=== PATIENT | male | born 1960 | race Two or more races ===

== ENCOUNTER 2024-07-20 19:26 | Inpatient (IN) | payer MEDICAID ==
[~2024-07-20] VITALS: Ht 167.6 cm; Wt 59.6 kg
[~2024-07-20 19:26] MED LIST: CARV12.544 PO; DOXY100C4 PO; FIN5T PO; FOLI-119 PO; FURO40TA4 PO; NIFE90TA75 PO; SODI650T PO; TAMS0.4C39 PO
--- NOTE | 2024-07-20 19:39 | ED.PDOC ---
History of Present Illness HPI Comments 63-year-old male who comes in with chief complaint of abdominal pain. The patient states that the pain starts in the right abdominal area and radiates to the right flank. The patient states that the pain is an 8/10. The patient has been dealing with this pain for the past four years and states that he has been told that he has had kidney stones but unfortunately they have not taking care of the stones. The patient denies any vomiting but is having some nausea. 911 was called and the patient was transported to our facility. The patient is also stating that he was seen a little over one week ago at [facility] for CHF. Time Seen by MD: 19:30 Reviewed Notes: Nurses Notes, Heel Shaper Notes, Medications, Allergies (No allergies to medications) Information Source: Patient, Emergency Med Personnel Mode of Arrival: EMS Severity: Moderate Timing: Days Duration: Since onset Prehospital treatment: None Location: Right-sided abdominal pain that radiates around to the right flank Associated signs and symptoms Associated nausea but no vomiting Past Medical History PAST MEDICAL HISTORY: CHF, CVA, HTN, Kidney Stones Surgical History: Cholecystectomy Surgical History (Other): Indwelling Stuart catheter Family History Family History: Family hx of DM Social History Smoker: Cigarettes Alcohol: Occasionally Drugs: Marijuana Lives In: Home Constitutional: denies: chills, diaphoresis, fatigue, fever, malaise, sweats, weakness, others EENTM: denies: blurred vision, double vision, ear bleeding, ear discharge, ear drainage, ear pain, ear ringing, eye pain, eye redness, hearing loss, mouth pain, mouth swelling, nasal discharge, nose bleeding, nose congestion, nose pain, photophobia, tearing, throat pain, throat swelling, voice changes, others Respiratory: denies: cough, hemoptysis, orthopnea, SOB at rest, shortness of breath, SOB with excertion, stridor, wheezing, others Cardiovascular: denies: chest pain, dizzy spells, diaphoresis, Dyspnea on exertion, edema, irregular heart beat, left arm pain, lightheadedness, palpitations, PND, syncope, others Gastrointestinal: reports: abdominal pain, nausea; denies: abdomen distended, blood streaked bowels, constipated, diarrhea, dysphagia, difficulty swallowing, hematemesis, melena, poor appetite, poor fluid intake, rectal bleeding, rectal pain, vomiting, others Genitourinary: reports: flank pain (Right-sided flank pain); denies: burning, dysuria, frequency, hematuria, incontinence, penile discharge, penile sore, pain, testicle pain, testicle swelling, urgency, others Neurological: denies: dizziness, fainting, headache, left sided numbness, left sided weakness, numbness, paresthesia, pre-existing deficit, right sided numbness, right sided weakness, seizure, speech problems, tingling, tremors, weakness, others Musculoskeletal: denies: back pain, gout, joint pain, joint swelling, muscle pain, muscle stiffness, neck pain, others Integumetry: denies: bruises, change in color, change in hair/nails, dryness, laceration, lesions, lumps, rash, wounds, others Allergic/Immunocompromised: denies: Difficulty Healing, Frequent Infections, Hives, Itching, others Hematologic/Lymphatic: denies: anemia, blood clots, easy bleeding, easy bruising, swollen glands, others Endocrine: denies: excessive hunger, excessive sweating, excessive thirst, excessive urination, flushing, intolerance to cold, intolerance to heat, unexplained weight gain, unexplained weight loss, others Psychiatric: denies: anxiety, bipolar disorder, depression, hopeless, panic disorder, schizophrenia, sleepless, suicidal, others Physical Exam General Appearance: Moderate Distress HEENT: Normal ENT Inspection, Pharynx Normal, TMs Normal Neck: Full Range of Motion, Non-Tender, Normal, Normal Inspection Respiratory: Chest Non-Tender, Lungs Clear, No Accessory Muscle Use, No Respiratory Distress, Normal Breath Sounds Cardiovascular: No Edema, No JVD, No Murmur, No Gallop, Normal Peripheral Pulses, Regular Rate/Rhythm Breast Exam: Deferred Gastrointestinal: No Organomegaly, No Pulsatile Mass, Normal Bowel Sounds, RUQ, Soft, Tenderness Genitalia: Deferred Pelvic: Deferred Rectal: Deferred Extremities: No calf tenderness, Normal capillary refill, Normal inspection, Normal range of motion, Non-tender, No pedal edema Musculoskeletal : Apperance: Normal Neurologic: Alert, set up mold technician II-XII nml as Tested, No Motor Deficits, Normal Affect, Normal Mood, No Sensory Deficits Cerebellar Function: Normal Reflexes: Normal Skin: Dry, Normal Color, Warm Lymphatic: No Adenopathy Was a procedure done? Was a procedure done?: No EKG EKG : Pulse Rate (adult): 91 [place]: Normal Cardiac Rhythm: NSR Block: RBBB Hypertrophy: LAE Differential Dx Considerations may include: Kidney stones, bowel obstruction, generalized weakness, UTI X-Ray, Labs, Meds, VS Vital Signs Date Time Temp Pulse Resp B/P (MAP) Pulse Ox O2 Delivery O2 Flow Rate FiO2 07/20/24 19:39 91 07/20/24 19:36 98.0 86 16 165/101 (122) 100 98.0 07/20/24 19:32 91 Lab Test 07/20/24 19:40 Range/Units White Blood Count 5.6 4.4-10.8 10^3/uL Red Blood Count 4.41 L 4.5-5.90 10^6/uL Hemoglobin 10.4 L 13.5-17.5 g/dL Hematocrit 32.8 L 41.0-53.0 % Mean Corpuscular Volume 74.4 L 80.0-100.0 fL Mean Corpuscular Hemoglobin 23.5 L 28.0-32.0 pg Mean Corpuscular Hemoglobin Concent 31.5 L 32.0-36.0 g/dL Red Cell Distribution Width 24.9 H 11.8-14.3 % Platelet Count 326 140-450 10^3/uL Mean Platelet Volume 6.3 L 6.9-10.8 fL Neutrophils (%) (Auto) 67.9 37.0-80.0 % Lymphocytes (%) (Auto) 17.8 10.0-50.0 % Monocytes (%) (Auto) 9.7 0.0-12.0 % Eosinophils (%) (Auto) 3.7 0.0-7.0 % Basophils (%) (Auto) 0.9 0.0-2.0 % Neutrophils # (Auto) 3.8 1.6-8.6 10 ^3/uL Lymphocytes # (Auto) 1.0 0.4-5.4 10 ^3/uL Monocytes # (Auto) 0.5 0-1.3 10 ^3/uL Eosinophils # (Auto) 0.2 0-0.8 10 ^3/uL Basophils # (Auto) 0 0-0.2 10 ^3/uL Nucleated Red Blood Cells 0.1 % Sodium Level 140 136-145 mmol/L Potassium Level 5.2 H 3.5-5.1 mmol/L Chloride Level 114 H 98-107 mmol/L Carbon Dioxide Level 17 L 20-31 mmol/L Anion Gap 9 5-15 Blood Urea Nitrogen 39 H 9-23 mg/dL Creatinine 2.91 H 0.700-1.30 mg/dL Glomerular Filtration Rate Calc 23 >90 mL/min BUN/Creatinine Ratio 13.4 10.0-20.0 Serum Glucose 92 74-106 mg/dL Calcium Level 9.0 8.7-10.4 mg/dL Total Bilirubin 0.2 0.2-1.0 mg/dL Aspartate Amino Transferase (AST) 29 0-34 U/L Alanine Aminotransferase (ALT) 27 7-40 U/L Alkaline Phosphatase 102 46-116 U/L Total Protein 6.6 5.7-8.2 g/dL Albumin 3.9 3.2-4.8 g/dL Lipase 42 12-53 U/L IV Hep-Lock was established The patient was given morphine 4 mg IV push for the pain The patient was given Zofran 4 mg IV push for the nausea Cat scan of the abdomen and pelvis is pending The patient's CBC shows anemia with a hemoglobin of 10.4 and hematocrit of 32.8 The chemistry panel shows hyperkalemia at 5.2 as well as a BUN of 39 the creatinine of 2.91 We are concerned about possible Psych renal failure The CAT scan of the head is pending The patient is being admitted Images Reviewed?: Images reviewed and evaluated by me Time of 1ST Reevaluation: 19:39 Reevaluation 1ST: Unchanged Patient Education/Counseling: Diagnosis, Treatment, Prognosis Family Education/Counseling: No Family Present Departure 1 Departure Time of Disposition: 21:26 Impression: Primary Impression: Intractable abdominal pain Additional Impression: Acute renal failure Qualified Codes: N17.1 - Acute kidney failure with acute cortical necrosis Disposition: ADMITTED INPATIENT Admit to: Tele Condition: Fair Critical Care Note Critical Care Time?: No Stability Stability form required: Yes Unstable for transfer: Telemetry monitoring (Telemetry monitoring required), ED Physician Assesment (Clinical assesment) Heart Score Heart Score: Heart Score Response (Comments) Value History N/A 0 EKG N/A 0 Age N/A 0 Risk Factors N/A 0 Troponin N/A 0 Total 0 OG GURROLA MD Jul 20, 2024 19:39
[2024-07-20 19:51] LABS: Basophils # (auto) 0 10 ^3/uL (0-0.2); Basophils % (auto) 0.9 % (0.0-2.0); Eosinophils # (auto) 0.2 10 ^3/uL (0-0.8); Eosinophils % (auto) 3.7 % (0.0-7.0); Hematocrit 32.8 % (41.0-53.0); Hemoglobin 10.4 g/dL (13.5-17.5); Lymphocytes % (auto) 17.8 % (10.0-50.0); Mean Corpuscular Hemoglobin 23.5 pg (28.0-32.0); Mean Corpuscular Hgb Conc. 31.5 g/dL (32.0-36.0); Mean Corpuscular Volume 74.4 fL (80.0-100.0); Monocytes # (auto) 0.5 10 ^3/uL (0-1.3); Monocytes % (auto) 9.7 % (0.0-12.0); Neutrophils # (auto) 3.8 10 ^3/uL (1.6-8.6); Neutrophils % (auto) 67.9 % (37.0-80.0); Nucleated Red Blood Cells % 0.1 %; Platelet Count (auto) 326 10^3/uL (140-450); Red Blood Cells 4.41 10^6/uL (4.5-5.90); Red Cell Distribution Width 24.9 % (11.8-14.3); White Blood Cell 5.6 10^3/uL (4.4-10.8)
[2024-07-20 20:05] LABS: Alanine Aminotransferase 27 U/L (7-40); Albumin 3.9 g/dL (3.2-4.8); Alkaline Phosphatase 102 U/L (46-116); Anion Gap 9 (5-15); Aspartate Aminotransferase 29 U/L (0-34); BUN/Creatinine Ratio 13.4 (10.0-20.0); Glucose 92 mg/dL (74-106); Sodium 140 mmol/L (136-145); Total Protein 6.6 g/dL (5.7-8.2)
[2024-07-20 20:07] LABS: Bilirubin, Total 0.2 mg/dL (0.2-1.0); Blood Urea Nitrogen 39 mg/dL (9-23); Carbon Dioxide 17 mmol/L (20-31); Chloride 114 mmol/L (98-107); Potassium 5.2 mmol/L (3.5-5.1)
[2024-07-20 20:19] LABS: Lipase 42 U/L (12-53)
--- NOTE | 2024-07-20 20:35 | ECG ---
[facility] Test Date: 2024-07-20 Test Time: 19:32:53 Pat Name: MARTHA BRICEÑO Department: ED Room: 0218T Gender: M Reversing [employer] Roller: RICKY : 1960 Requested By: OG GURROLA Order Number: [id number] Reading MD: Rojelio Frank Measurements Intervals [place] Rate: 91 P: 47 RI: 164 QRS: -108 QRSD: 148 T: 65 QT: 406 QTc: 500 Interpretive Statements Sinus rhythm Probable left atrial enlargement RBBB and LAFB Electronically Signed On 07-21-2024 9:29:57 PDT by Rojelio Frank Please click the below link to view image of tracing.
[2024-07-20] MEDS: SODIUM CHLORIDE 0.9% 500 ML IVB ONE (22:28)
[2024-07-20] MEDS: ONDANSETRON HCL 4 MG/2 ML VIAL IV ONE (22:29)
[2024-07-20] MEDS: MORPHINE SULFATE 4 MG/ML SYR/VIAL IV ONE (22:30)
--- NOTE | 2024-07-20 22:39 | DVH ---
Exam: CT CT AB PEL WO CON-NO ORAL OR IV History: right abd pain Comparison Study: None TECHNIQUE: Multidetector CT of the abdomen was performed from lung bases to pubic symphysis. Imaging was performed without IV contrast. Axial, coronal and sagittal multiplanar reformats were obtained fr om the axial data set by the technologist. Radiation Dose Information: CT Dose: CTDI volume is 0.57 mGy. Dose-length product is 290.48 mGy*cm FINDINGS: Evaluation of solid organs is limited due to lack of intravenous contrast use. Findings: Lung Bases: No acute or significant lung base finding. Normal heart size. No pleural or pericardial effusion. Liver: The liver is normal in size. No focal lesions. Gallbladder and Biliary Tree: Gallbladder has been surgically removed. Spleen: Unremarkable Pancreas: The pancreas is grossly normal in appearance. Adrenal Glands: Unremarkable Kidneys: Bilateral hydronephrosis and hydroureter. Bladder: Multiple large icalculi in the bladder. Stuart catheter in the bladder Bowel: The stomach is grossly normal in appearance. Small bowel and colon are normal in caliber and d istribution. The appendix is not visualized; however, no secondary findings of acute appendicitis id entified. Ascites: Absent Lymphadenopathy: No mesenteric, retroperitoneal or periportal lymphadenopathy. Abdominal Wall and Mesentery: Unremarkable. Vasculature: The visualized abdominal aorta is normal in size and caliber. Evaluation of abdominal a nd pelvic vessels is limited due to lack of intravenous contrast. Pelvic Organs: Unremarkable Musculoskeletal: No aggressive focal bony lesions, acute fractures or dislocation. Soft tissues: Unremarkable IMPRESSION: 1. Bilateral hydronephrosis and hydroureter to the bladder. 2. Multiple large bladder calculi 3. Stuart catheter in place. 4. Gallbladder has been surgically removed. Radiation optimization: All CT scans at this facility use at least one of these dose optimization is[place] hniques: automated exposure control mA and/or kV adjustment per patient size (includes targeted exam s where dose is matched to clinical indication) or iterative reconstruction.
[2024-07-20] MEDS ORDERED: ONDANSETRON HCL 4 MG/2 ML VIAL IV PRN (22:45)
[2024-07-20] MEDS ORDERED: DOCUSATE SOD 100 MG CAP PO PRN (22:45)
[2024-07-20] MEDS ORDERED: ACETAMINOPHEN 325 MG TAB PO PRN (22:45)
--- NOTE | 2024-07-20 23:42 | DVHHP2 ---
History of Present Illness Reason for Visit: Acute renal failure History of Present Illness The patient is a 63-year-old male with past medical history of CHF, CVA, hypertension, and kidney stones who presented to [facility] ED with complaint of abdominal pain. Patient reports symptoms progressively get worse severe abdominal pain radiating to the right flank, rating 8/10 numeric scale, associated nausea, getting worse that prompted this visit. Patient was seen and evaluated in the ED, laboratory data shows WBC 5.6, hemoglobin 10.4, hematocrit 32.8, platelets 326, sodium 140, potassium 5.2, BUN 39, creatinine 2.91, GFR 23, glucose 92, calcium 9.0, lipase 42, blood pressure 164/100, heart rate 89, temperature 98.2 F, O2 saturation 98% on room air. Abdomen/pelvis CT revealing bilateral hydronephrosis and hydroureter to the bladder, multiple large bladder calculi, Stuart catheter in place, gallbladder has been surgically removed. Patient was given morphine sulfate 4 mg IV x1, please see medication orders section in the computer. On my assessment, patient denied chest pain, no headache, no dizziness, no shortness of breath no abdominal pain at this moment, no diarrhea, no nausea, no vomiting, no fever, no chills. Patient was admitted for further evaluation and medical management. Past Medical History CHF, CVA, HTN, Kidney Stones Past Surgical History Cholecystectomy, Indwelling Stuart catheter Family History Reviewed, noncontributory to the management of this case. Past Social History The patient lives at home, denies smoking, alcohol or illicit drugs abuse. Review of Systems Constitutional: Yes: Weakness; No: Fever, Chills, Sweats, Malaise, Other Eyes: No: Pain, Vision change, Conjunctivae inflammation, Eyelid inflammation, Other, Redness ENT: No: Ear pain, Ear discharge, Nose pain, Nose discharge, Nose congestion, Mouth pain, Mouth swelling, Throat pain, Throat swelling, Other Respiratory: No: Cough, Dry, Shortness of breath, SOB with excertion, Wheezing, Hemoptysis, Pleuritic Pain, Sputum, Wheezing, Other Cardiovascular: No: Chest Pain, Palpitations, Orthopnea, Paroxysmal Noc. Dyspnea, Edema, Lt Headedness, Other Gastrointestinal: Nausea, Abdominal Pain; No: Vomiting, Diarrhea, Constipation, Melena, Hematochezia, Other Genitourinary: No Dysuria, No Frequency, No Incontinence, No Hematuria, No Retention, No Other Musculoskeletal: No: other, neck pain, shoulder pain, arm pain, back pain, hand pain, leg pain, foot pain Skin: No: Rash, Lesions, Jaundice, Bruising, Other Neurological: No: Weakness, Numbness, Incoordination, Change in speech, Confusion, Seizures, Other Allergies: Coded Allergies: NO KNOWN ALLERGIES (Unverified , 07/20/24) Medications Current Medications Medications Dose Ordered Sig/Yves Route Start Time Stop Time Status Last Admin Dose Admin Carvedilol 12.5 mg Q12HR PO 07/21/24 10:00 Hydralazine HCl 10 mg Q6HP PRN IV 07/20/24 22:45 Tamsulosin HCl 0.4 mg QPM PO 07/21/24 18:00 Aspirin 81 mg DAILY PO 07/21/24 10:00 Sodium Chloride 10 ml Q8HR IV 07/21/24 06:00 Acetaminophen/ Hydrocodone Bitart 1 tab Q4HP PRN PO 07/20/24 22:45 Ondansetron HCl 4 mg Q4HP PRN IV 07/20/24 22:45 Docusate Sodium 100 mg BIDPRN PRN PO 07/20/24 22:45 Acetaminophen 650 mg Q6HP PRN PO 07/20/24 22:45 Exam Vital Signs Vital Signs Date Time Temp Pulse Resp B/P (MAP) Pulse Ox O2 Delivery O2 Flow Rate FiO2 07/20/24 22:30 89 18 98 Room Air 07/20/24 22:30 98.2 164/100 (121) 98.2 General Appearance: Alert, Oriented X3, Cooperative, No acute distress HEENT: Atraumatic, PERRLA, EOMI, Mucous membr. moist/pink Respiratory: Normal air movement Cardiovascular: Regular rate, Normal S1, Normal S2, No murmurs Abdominal: Normal bowel sounds, Soft, No tenderness, No hepatospenomegaly, No masses Extremities: No clubbing, No cyanosis, No edema, Normal pulses, No tenderness/swelling Skin: No rashes, No breakdown, No significant lesion Neuro: Normal gait, Normal speech, Strength at 5/5 X4 ext, Normal tone, Sensation intact, Cranial nerves 3-12 NL, Reflexes 2+ Psych/Mental Status: Mental status NL, Mood NL Labs/Xrays Labs Test 07/20/24 19:40 Range/Units White Blood Count 5.6 4.4-10.8 10^3/uL Red Blood Count 4.41 L 4.5-5.90 10^6/uL Hemoglobin 10.4 L 13.5-17.5 g/dL Hematocrit 32.8 L 41.0-53.0 % Mean Corpuscular Volume 74.4 L 80.0-100.0 fL Mean Corpuscular Hemoglobin 23.5 L 28.0-32.0 pg Mean Corpuscular Hemoglobin Concent 31.5 L 32.0-36.0 g/dL Red Cell Distribution Width 24.9 H 11.8-14.3 % Platelet Count 326 140-450 10^3/uL Mean Platelet Volume 6.3 L 6.9-10.8 fL Neutrophils (%) (Auto) 67.9 37.0-80.0 % Lymphocytes (%) (Auto) 17.8 10.0-50.0 % Monocytes (%) (Auto) 9.7 0.0-12.0 % Eosinophils (%) (Auto) 3.7 0.0-7.0 % Basophils (%) (Auto) 0.9 0.0-2.0 % Neutrophils # (Auto) 3.8 1.6-8.6 10 ^3/uL Lymphocytes # (Auto) 1.0 0.4-5.4 10 ^3/uL Monocytes # (Auto) 0.5 0-1.3 10 ^3/uL Eosinophils # (Auto) 0.2 0-0.8 10 ^3/uL Basophils # (Auto) 0 0-0.2 10 ^3/uL Nucleated Red Blood Cells 0.1 % Sodium Level 140 136-145 mmol/L Potassium Level 5.2 H 3.5-5.1 mmol/L Chloride Level 114 H 98-107 mmol/L Carbon Dioxide Level 17 L 20-31 mmol/L Anion Gap 9 5-15 Blood Urea Nitrogen 39 H 9-23 mg/dL Creatinine 2.91 H 0.700-1.30 mg/dL Glomerular Filtration Rate Calc 23 >90 mL/min BUN/Creatinine Ratio 13.4 10.0-20.0 Serum Glucose 92 74-106 mg/dL Calcium Level 9.0 8.7-10.4 mg/dL Total Bilirubin 0.2 0.2-1.0 mg/dL Aspartate Amino Transferase (AST) 29 0-34 U/L Alanine Aminotransferase (ALT) 27 7-40 U/L Alkaline Phosphatase 102 46-116 U/L B-Type Natriuretic Peptide > 5000.00 0-100 pg/mL Total Protein 6.6 5.7-8.2 g/dL Albumin 3.9 3.2-4.8 g/dL Lipase 42 12-53 U/L PATIENT: MARTHA BRICEÑO ACCT: [id number] UNIT: [id number] : 1960 LOC: ER ROOM / BED: / AGE / SEX: 63 / M ADM STATUS: REG ER SERVICE 30 ORDERING PHYSICIAN: OG GURROLA MD PROCEDURE(s): ABPL - CT AB PEL WO CON-NO ORAL OR IV REASON: right abd pain ORDER NUMBER(s): [id number], ACCESSION NUMBER(s): [id number] Exam: CT CT AB PEL WO CON-NO ORAL OR IV History: right abd pain Comparison Study: None TECHNIQUE: Multidetector CT of the abdomen was performed from lung bases to pubic symphysis. Imaging was performed without IV contrast. Axial, coronal and sagittal multiplanar reformats were obtained from the axial data set by the technologist. Radiation Dose Information: CT Dose: CTDI volume is 0.57 mGy. Dose-length product is 290.48 mGy*cm FINDINGS: Evaluation of solid organs is limited due to lack of intravenous contrast use. Findings: Lung Bases: No acute or significant lung base finding. Normal heart size. No pleural or pericardial effusion. Liver: The liver is normal in size. No focal lesions. Gallbladder and Biliary Tree: Gallbladder has been surgically removed. Spleen: Unremarkable Pancreas: The pancreas is grossly normal in appearance. Adrenal Glands: Unremarkable Kidneys: Bilateral hydronephrosis and hydroureter. Bladder: Multiple large icalculi in the bladder. Stuart catheter in the bladder Bowel: The stomach is grossly normal in appearance. Small bowel and colon are normal in caliber and distribution. The appendix is not visualized; however, no secondary findings of acute appendicitis identified. Ascites: Absent Lymphadenopathy: No mesenteric, retroperitoneal or periportal lymphadenopathy. Abdominal Wall and Mesentery: Unremarkable. Vasculature: The visualized abdominal aorta is normal in size and caliber. Evaluation of abdominal and pelvic vessels is limited due to lack of intravenous contrast. Pelvic Organs: Unremarkable Musculoskeletal: No aggressive focal bony lesions, acute fractures or dislocation. Soft tissues: Unremarkable IMPRESSION: 1. Bilateral hydronephrosis and hydroureter to the bladder. 2. Multiple large bladder calculi 3. Stuart catheter in place. 4. Gallbladder has been surgically removed. Assessment/Plan Assessment/Plan Intractable abdominal pain Bilateral hydronephrosis Acute renal failure Acute kidney failure with acute cortical necrosis Plan 1. Admit to telemetry unit 2. Breathing treatment 3. Pain control management 4. Management of fluids and electrolytes 5. Consultation for Nephrology/Urology 6. Diagnostic tests abdomen/pelvis CT 7. DVT prophylaxis-on aspirin 8. Repeat labs CBC, CMP in a.m. 9. Continue with current medical management 10. Treatment plan discussed with patient and RN. Patient verbalized un derstanding. Plan discussed with: Patient, Other (RN) My Orders Orders - OLCO BRANDON DNP Procedure Category Date Status Time Carvedilol Tablet PHA 07/21/24 In Process (Coreg Tablet) 10:00 Hydralazine Injection PHA 07/20/24 In Process (Apresoline Inject 22:45 Tamsulosin PHA 07/21/24 In Process Hydrochloride (Flomax) 18:00 Aspirin Tablet PHA 07/21/24 In Process 10:00 Type And Screen BBK 07/20/24 In Process 22:35 Allergies ALETHA 07/20/24 In Process 22:35 Code Status CODE 07/20/24 Transmitted 22:35 Sodium Chloride Lock PHA 07/21/24 In Process (Saline Lock Ns) 06:00 Oxygen Per Hour RT 07/20/24 Transmitted 22:35 Hydrocodone-Acet PHA 07/20/24 In Process 5/325mg Tab (Slovan 22:45 Ondansetron Hcl PHA 07/20/24 In Process (Zofran) 22:45 Docusate Sodium PHA 07/20/24 In Process Capsule (Colace 22:45 Complete Blood Count LAB 07/21/24 Verified 04:00 Comprehensive LAB 07/21/24 Verified Metabolic Panel 04:00 Cardiac DIET 07/21/24 Transmitted Diet-2gna,Lofat,Lochol Breakfast Condition: Serious ALETHA 07/20/24 In Process 22:35 Acetaminophen Tablet PHA 07/20/24 In Process (Tylenol Tablet) 22:45 Bedrest With Bathroom ALETHA 07/20/24 In Process Privileg 22:35 Sequential [facility] 07/20/24 In Process Compression Device *[employer] CONS 07/20/24 Transmitted -[place] 23:36 Admit ADMIT 07/20/24 Transmitted 23:36 Nitroglycerin [facility] 07/20/24 Logged Sublingual (Ntrostat 23:45 Morphine Sulfate [facility] 07/20/24 Transmitted Injection 23:45 Notify Of Changes [facility] 07/20/24 In Process From Base 23:36 [employer] Fleet Super[employer] For [facility] 07/20/24 In Process 24 Hours 23:36 Emergency Dysrhythmia [facility] 07/20/24 In Process Protocol 23:36 Rhythm Strips Once [facility] 07/20/24 In Process Every Shift 23:36 Oxygen By Nasal RT 07/20/24 Transmitted Cannula 23:36 Problem List: (1) Intractable abdominal pain (2) Bilateral hydronephrosis (3) Acute renal failure (4) Acute kidney failure with acute cortical necrosis Date of Service: Jul 20, 2024 Billing Provider: LOCO BRANDON DNP Common Visit Codes: 50154-KRXBVMS INP/OBS CARE (HIGH) LOCO BRANDON DNP Jul 20, 2024 23:42
[2024-07-20] MEDS ORDERED: NITROGLYCERIN 0.4 MG SL TAB SL PRN (23:45)
[2024-07-21] VITALS (9 sets, daily range): BP systolic 124–161; BP diastolic 79–96; PULSE 76–91; RESP 17–20; TEMP 97.2–99.5; O2SAT 96–100
[2024-07-21] MEDS: hydrALAZINE HCL 20 MG/ML VL IV PRN (02:47)
[2024-07-21 05:10] LABS: Basophils # (auto) 0.1 10 ^3/uL (0-0.2); Basophils % (auto) 0.9 % (0.0-2.0); Eosinophils # (auto) 0.3 10 ^3/uL (0-0.8); Eosinophils % (auto) 4.8 % (0.0-7.0); Hemoglobin 10.6 g/dL (13.5-17.5); Lymphocytes # (auto) 1.3 10 ^3/uL (0.4-5.4); Lymphocytes % (auto) 20.3 % (10.0-50.0); Mean Corpuscular Hemoglobin 23.4 pg (28.0-32.0); Mean Corpuscular Hgb Conc. 31.2 g/dL (32.0-36.0); Monocytes # (auto) 0.7 10 ^3/uL (0-1.3); Platelet Count (auto) 336 10^3/uL (140-450); Red Blood Cells 4.54 10^6/uL (4.5-5.90); Red Cell Distribution Width 24.6 % (11.8-14.3); White Blood Cell 6.4 10^3/uL (4.4-10.8)
[2024-07-21 05:32] LABS: Alanine Aminotransferase 34 U/L (7-40); Albumin 3.8 g/dL (3.2-4.8); Alkaline Phosphatase 105 U/L (46-116); Anion Gap 11 (5-15); Aspartate Aminotransferase 34 U/L (0-34); BUN/Creatinine Ratio 13.7 (10.0-20.0); Bilirubin, Total 0.3 mg/dL (0.2-1.0); Blood Urea Nitrogen 37 mg/dL (9-23); Calcium 8.5 mg/dL (8.7-10.4); Carbon Dioxide 15 mmol/L (20-31); Chloride 116 mmol/L (98-107); Glucose 106 mg/dL (74-106); Potassium 4.8 mmol/L (3.5-5.1); Sodium 142 mmol/L (136-145); Total Protein 6.5 g/dL (5.7-8.2)
[2024-07-21] MEDS: SODIUM CHLOR 0.9% PF (SALINE LOCK) 10ML VIAL/SYR IV SCH (05:40)
[2024-07-21] MEDS: CARVEDILOL 12.5 MG TAB PO SCH (08:58)
[2024-07-21] MEDS: ASPirin 81 mg TAB PO SCH (08:59)
--- NOTE | 2024-07-21 10:36 | DVHINCON2 ---
Date of service: Jul 21, 2024 Referring Physician Hospitalist Reason for Consultation Acute kidney injury History of Present Illness 63-year-old male patient is a poor historian denies any previous medical history other than kidney stones. Patient reports that he has had problems with kidney stones for several years however has had no consistent medical follow-up. He reports that approximately one week ago he went to [place] and a Stuart catheter was placed. He now presents to the hospital complaining of bilateral flank pain. He is found to have multiple kidney stones and hydronephrosis. He is admitted for this reason. Patient has consulted Nephrology due to elevated creatinine level. His baseline renal function is unknown Allergies: Coded Allergies: NO KNOWN ALLERGIES (Unverified , 07/20/24) Home Meds Unable to Obtain Active Prescriptions or Reported Meds Current Medications Current Medications Medications (Trade) Dose Ordered Sig/Yves Route PRN Reason Start Time Stop Time Status Last Admin Carvedilol (Coreg Tablet) 12.5 mg Q12HR PO 07/21/24 10:00 07/21/24 08:58 Hydralazine HCl (Apresoline Injection) 10 mg Q6HP PRN IV SBP>150 07/20/24 22:45 07/21/24 02:47 Tamsulosin HCl (Flomax) 0.4 mg QPM PO 07/21/24 18:00 Aspirin 81 mg DAILY PO 07/21/24 10:00 07/21/24 08:59 Sodium Chloride (Saline Lock Ns) 10 ml Q8HR IV 07/21/24 06:00 07/21/24 05:40 Acetaminophen/ Hydrocodone Bitart ([place] 5/325MG Tab) 1 tab Q4HP PRN PO MODERATE PAIN (4-6 PAIN SCALE) 07/20/24 22:45 Ondansetron HCl (Zofran) 4 mg Q4HP PRN IV NAUSEA / VOMITING 07/20/24 22:45 Docusate Sodium (Colace Capsule) 100 mg BIDPRN PRN PO FOR CONSTIPATION 07/20/24 22:45 Acetaminophen (Tylenol Tablet) 650 mg Q6HP PRN PO PAIN SCALE 1-3 OR TEMP>100.4 07/20/24 22:45 Nitroglycerin (Ntrostat Sublingual) 0.4 mg Q5MINP PRN SL FOR CHEST PAIN 07/20/24 23:45 Morphine Sulfate 2 mg Q30M PRN IV FOR CHEST PAIN 07/20/24 23:45 Family History: Patient reports no known family medical history. Review of Systems Flank pain H&P Exam Vital Signs/I&O Vital Sign Date Time Temp Pulse Resp B/P (MAP) Pulse Ox O2 Delivery O2 Flow Rate FiO2 07/21/24 09:10 99.5 91 17 161/96 (117) 98 99.5 07/21/24 02:15 Room Air* 0 21 Intake and Output 07/20/24 07/21/24 19:00 07:00 Intake Total 300 ml Output Total 600 ml Balance -300 ml Intake Oral 300 ml Output Urine Total 600 ml Physical Exam Middle-aged male Not in overt distress Multiple tattoos Abdomen is soft No pitting edema No elevated JVD Regular rate and rhythm Stuart catheter to leg bag with clear yellow urine Labs/Diagnostic Data Labs/Diagnostic Data Laboratory Tests Test 07/21/24 04:56 07/20/24 19:40 Range/Units White Blood Count 6.4 5.6 4.4-10.8 10^3/uL Red Blood Count 4.54 4.41 L 4.5-5.90 10^6/uL Hemoglobin 10.6 L 10.4 L 13.5-17.5 g/dL Hematocrit 34.0 L 32.8 L 41.0-53.0 % Mean Corpuscular Volume 75.0 L 74.4 L 80.0-100.0 fL Mean Corpuscular Hemoglobin 23.4 L 23.5 L 28.0-32.0 pg Mean Corpuscular Hemoglobin Concent 31.2 L 31.5 L 32.0-36.0 g/dL Red Cell Distribution Width 24.6 H 24.9 H 11.8-14.3 % Platelet Count 336 326 140-450 10^3/uL Mean Platelet Volume 6.6 L 6.3 L 6.9-10.8 fL Neutrophils (%) (Auto) 63.0 67.9 37.0-80.0 % Lymphocytes (%) (Auto) 20.3 17.8 10.0-50.0 % Monocytes (%) (Auto) 11.0 9.7 0.0-12.0 % Eosinophils (%) (Auto) 4.8 3.7 0.0-7.0 % Basophils (%) (Auto) 0.9 0.9 0.0-2.0 % Neutrophils # (Auto) 4.0 3.8 1.6-8.6 10 ^3/uL Lymphocytes # (Auto) 1.3 1.0 0.4-5.4 10 ^3/uL Monocytes # (Auto) 0.7 0.5 0-1.3 10 ^3/uL Eosinophils # (Auto) 0.3 0.2 0-0.8 10 ^3/uL Basophils # (Auto) 0.1 0 0-0.2 10 ^3/uL Nucleated Red Blood Cells 0.0 0.1 % Sodium Level 142 140 136-145 mmol/L Potassium Level 4.8 5.2 H 3.5-5.1 mmol/L Chloride Level 116 H 114 H 98-107 mmol/L Carbon Dioxide Level 15 L 17 L 20-31 mmol/L Anion Gap 11 9 5-15 Blood Urea Nitrogen 37 H 39 H 9-23 mg/dL Creatinine 2.70 H 2.91 H 0.700-1.30 mg/dL Glomerular Filtration Rate Calc 26 23 >90 mL/min BUN/Creatinine Ratio 13.7 13.4 10.0-20.0 Serum Glucose 106 92 74-106 mg/dL Calcium Level 8.5 L 9.0 8.7-10.4 mg/dL Total Bilirubin 0.3 0.2 0.2-1.0 mg/dL Aspartate Amino Transferase (AST) 34 29 0-34 U/L Alanine Aminotransferase (ALT) 34 27 7-40 U/L Alkaline Phosphatase 105 102 46-116 U/L Total Protein 6.5 6.6 5.7-8.2 g/dL Albumin 3.8 3.9 3.2-4.8 g/dL B-Type Natriuretic Peptide > 5000.00 0-100 pg/mL Lipase 42 12-53 U/L Assessment 63-year-old male with a past history of kidney stones and urinary retention with Stuart in place for the past week presents to the hospital complaining of flank pain admitted from the ER due to bilateral kidney stones and hydronephrosis. Acute kidney injury secondary to obstructive kidney disease. Chronic kidney disease unspecified baseline unknown Bilateral renal stones Bilateral hydronephrosis Chronic urinary retention with Stuart catheter Hypocalcemia Resume IV fluid hydration Avoid hypotension Continue to drain and monitoring output from Stuart catheter Send urinalysis, urine protein creatinine ratio Consult urology Plan discussed with: Patient CAMERON ELLIS MD Jul 21, 2024 10:36
--- NOTE | 2024-07-21 13:16 | DVHPN2 ---
Reviewed: Care Plan, H&P, Labs, Medications, Previous Orders, Radiology Changes from previous H/P or p: No Changes Eyes: No Pain, No Vision change, No Conjunctivae inflammation, No Eyelid inflammation, No Other, No Redness ENT: No Ear pain, No Ear discharge, No Nose pain, No Nose discharge, No Nose congestion, No Mouth pain, No Mouth swelling, No Throat pain, No Throat swelling, No Other Cardiovascular: No Chest Pain, No Palpitations, No Orthopnea, No Paroxysmal Noc. Dyspnea, No Edema, No Lt Headedness, No Other Respiratory: No Cough, No Dry, No Shortness of breath, No SOB with excertion, No Wheezing, No Hemoptysis, No Pleuritic Pain, No Sputum, No Other Gastrointestinal: Nausea; No Vomiting; Abdominal Pain; No Diarrhea, No Constipation, No Melena, No Hematochezia, No Other Genitourinary: No Dysuria, No Frequency, No Incontinence, No Hematuria, No Retention, No Other Musculoskeletal: No other, No neck pain, No shoulder pain, No arm pain, No back pain, No hand pain, No leg pain, No foot pain Skin: No Rash, No Lesions, No Jaundice, No Bruising, No Other Objective Vitals Vital Signs Date Time Temp Pulse Resp B/P (MAP) Pulse Ox O2 Delivery O2 Flow Rate FiO2 07/21/24 09:10 99.5 91 17 161/96 (117) 98 99.5 07/21/24 02:15 Room Air* 0 21 Intake/Output Intake and Output 07/21/24 07:00 Intake Total 300 ml Output Total 600 ml Balance -300 ml Intake Oral 300 ml Output Urine Total 600 ml Medications Current Medications Medications Dose Ordered Sig/Yves Route Start Time Stop Time Status Last Admin Dose Admin Carvedilol 12.5 mg Q12HR PO 07/21/24 10:00 07/21/24 08:58 12.5 MG Hydralazine HCl 10 mg Q6HP PRN IV 07/20/24 22:45 07/21/24 02:47 10 MG Tamsulosin HCl 0.4 mg QPM PO 07/21/24 18:00 Aspirin 81 mg DAILY PO 07/21/24 10:00 07/21/24 08:59 81 MG Sodium Chloride 10 ml Q8HR IV 07/21/24 06:00 07/21/24 05:40 10 ML Acetaminophen/ Hydrocodone Bitart 1 tab Q4HP PRN PO 07/20/24 22:45 Ondansetron HCl 4 mg Q4HP PRN IV 07/20/24 22:45 Docusate Sodium 100 mg BIDPRN PRN PO 07/20/24 22:45 Acetaminophen 650 mg Q6HP PRN PO 07/20/24 22:45 Nitroglycerin 0.4 mg Q5MINP PRN SL 07/20/24 23:45 Morphine Sulfate 2 mg Q30M PRN IV 07/20/24 23:45 Sodium Chloride 1,000 ml @ 60 mls/hr [id number] IV 07/21/24 10:30 Laboratory Results Laboratory Tests 07/21/24 04:56 Chemistry Test 07/20/24 19:40 07/21/24 04:56 Albumin 3.9 g/dL (3.2-4.8) 3.8 g/dL (3.2-4.8) Calcium Level 9.0 mg/dL (8.7-10.4) 8.5 mg/dL (8.7-10.4) L Total Protein 6.6 g/dL (5.7-8.2) 6.5 g/dL (5.7-8.2) Lipid panel Test 07/20/24 19:40 Lipase 42 U/L (12-53) Cardiac Markers Test 07/20/24 19:40 B-Type Natriuretic Peptide > 5000.00 pg/mL (0-100) LFT Test 07/20/24 19:40 07/21/24 04:56 Alanine Aminotransferase (ALT) 27 U/L (7-40) 34 U/L (7-40) Alkaline Phosphatase 102 U/L (46-116) 105 U/L (46-116) Aspartate Amino Transferase (AST) 29 U/L (0-34) 34 U/L (0-34) Total Bilirubin 0.2 mg/dL (0.2-1.0) 0.3 mg/dL (0.2-1.0) HgA1c, TSH Test 07/21/24 04:56 Hemoglobin A1c Pending Labs and/or images reviewed: Labs reviewed by me, Image(s) reviewed by me Assessment/Plan Assessment/Plan Acute abdominal pain Multiple bladder calculi with a bilateral hydronephrosis: Urology consult for Dr. Da Silva History of kidney stones Indwelling Stuart Acute on chronic CHF exacerbation : Cardiology consult for Dr. Frank Hypotension History of stroke AK I: Nephrology consult by Dr. Kang appreciated Time spent 75 minutes Advanced care planning time 20 minutes Patient is full code Plan discussed with: Patient Date of Service: Jul 21, 2024 Billing Provider: BINH PEREZ MD Common Visit Codes: [id number] CARE 30-74 MIN BINH PEREZ MD Jul 21, 2024 13:16
--- NOTE | 2024-07-21 13:45 | DVHINCON2 ---
Date of service: Jul 21, [address] Nichole Reason for Consultation blader stones, hydronephrosis History of Present Illness History Source: Patient, RN Notes, MD Notes Exam Limitations: No limitations HPI 63 yo male with CHF admitted for abdominal pain. CT shows multiple large bladder calculi and bilateral hydro. Robins in place. Creatinine is 2.7 unknown baseline. Nephrology has evaluated patient. Home Meds Unable to Obtain Active Prescriptions or Reported Meds Past Medical History Patient Family History: Patient reports no known family medical history. H&P Exam Vital Signs Vital Signs Date Time Temp Pulse Resp B/P (MAP) Pulse Ox O2 Delivery O2 Flow Rate FiO2 07/21/24 09:10 99.5 91 17 161/96 (117) 98 99.5 07/21/24 02:15 Room Air* 0 21 Labs/Xrays Labs Test 07/21/24 04:56 07/20/24 19:40 Range/Units White Blood Count 6.4 4.4-10.8 10^3/uL Red Blood Count 4.54 4.5-5.90 10^6/uL Hemoglobin 10.6 L 13.5-17.5 g/dL Hematocrit 34.0 L 41.0-53.0 % Mean Corpuscular Volume 75.0 L 80.0-100.0 fL Mean Corpuscular Hemoglobin 23.4 L 28.0-32.0 pg Mean Corpuscular Hemoglobin Concent 31.2 L 32.0-36.0 g/dL Red Cell Distribution Width 24.6 H 11.8-14.3 % Platelet Count 336 140-450 10^3/uL Mean Platelet Volume 6.6 L 6.9-10.8 fL Neutrophils (%) (Auto) 63.0 37.0-80.0 % Lymphocytes (%) (Auto) 20.3 10.0-50.0 % Monocytes (%) (Auto) 11.0 0.0-12.0 % Eosinophils (%) (Auto) 4.8 0.0-7.0 % Basophils (%) (Auto) 0.9 0.0-2.0 % Neutrophils # (Auto) 4.0 1.6-8.6 10 ^3/uL Lymphocytes # (Auto) 1.3 0.4-5.4 10 ^3/uL Monocytes # (Auto) 0.7 0-1.3 10 ^3/uL Eosinophils # (Auto) 0.3 0-0.8 10 ^3/uL Basophils # (Auto) 0.1 0-0.2 10 ^3/uL Nucleated Red Blood Cells 0.0 % Sodium Level 142 136-145 mmol/L Potassium Level 4.8 3.5-5.1 mmol/L Chloride Level 116 H 98-107 mmol/L Carbon Dioxide Level 15 L 20-31 mmol/L Anion Gap 11 5-15 Blood Urea Nitrogen 37 H 9-23 mg/dL Creatinine 2.70 H 0.700-1.30 mg/dL Glomerular Filtration Rate Calc 26 >90 mL/min BUN/Creatinine Ratio 13.7 10.0-20.0 Serum Glucose 106 74-106 mg/dL Calcium Level 8.5 L 8.7-10.4 mg/dL Total Bilirubin 0.3 0.2-1.0 mg/dL Aspartate Amino Transferase (AST) 34 0-34 U/L Alanine Aminotransferase (ALT) 34 7-40 U/L Alkaline Phosphatase 105 46-116 U/L Total Protein 6.5 5.7-8.2 g/dL Albumin 3.8 3.2-4.8 g/dL Vitamin D 25-Hydroxy 35.1 30.0-100 ng/mL Parathyroid Hormone (Intact) 296.0 H 18.4-80.1 pg/mL B-Type Natriuretic Peptide > 5000.00 0-100 pg/mL Lipase 42 12-53 U/L Assessment/Plan Problem List: (1) Bladder stones (2) Hydronephrosis (3) SULEMAN (acute kidney injury) (4) Intractable abdominal pain (5) Bilateral hydronephrosis Plan robins monitor renal function will need cystolitholapaxy eventually hold aspirin my need PCN if renal function not improving. Plan discussed with: Patient, Other JEAN CARLOS CUETO NP Jul 21, 2024 13:45
[2024-07-21] MEDS: SODIUM CHLORIDE 0.9% 1,000 ML IV SCH (14:16)
[2024-07-21 15:50] LABS: Urine Bacteria None Seen /hpf (None Seen)
[2024-07-21 16:07] LABS: Urine Amorphous Crystal FEW /hpf (None Seen); Urine Blood 2+ /uL (Negative); Urine Clarity Ex.Turbid (Clear); Urine Color Light-Brown (Yellow); Urine Protein, UAD 2+ (Negative); Urine Specific Gravity 1.012 (1.001-1.035); Urine Squamous Epithelial Cell None Seen /hpf (<5); Urine Urobilinogen Normal (Negative); Urine WBC 1406 /HPF (0-3); Urine WBC Clumps PRESENT /hpf (None Seen); Urine pH 6.5 (5.0-9.0)
[2024-07-21 16:13] LABS: Creatinine, Urine 61.23 mg/dL (30.0-125.0)
[2024-07-21 16:16] LABS: Protein, Urine 237.2 mg/dL (1-14); Urine Protein/Creatinine Ratio 3.87
[2024-07-21] MEDS: TAMSULOSIN HYDROCHLORIDE 0.4 MG CAP PO SCH (17:45)
[2024-07-22] VITALS (9 sets, daily range): BP systolic 147–167; BP diastolic 86–101; PULSE 75–87; RESP 17–19; TEMP 96.4–97.9; O2SAT 97–99
[2024-07-22] MEDS: HYDROcodone-ACET 5/325MG TAB PO PRN (02:16)
[2024-07-22 06:53] LABS: Anion Gap 10 (5-15); Sodium 139 mmol/L (136-145)
[2024-07-22 06:54] LABS: Carbon Dioxide 17 mmol/L (20-31); Chloride 112 mmol/L (98-107); Potassium 5.4 mmol/L (3.5-5.1)
[2024-07-22 06:56] LABS: Calcium 8.3 mg/dL (8.7-10.4)
[2024-07-22 06:59] LABS: Glucose 93 mg/dL (74-106)
[2024-07-22 07:00] LABS: BUN/Creatinine Ratio 15.8 (10.0-20.0)
[2024-07-22 07:01] LABS: Blood Urea Nitrogen 47 mg/dL (9-23)
[2024-07-22 07:02] LABS: Phosphorus 3.4 mg/dL (2.4-5.1)
--- NOTE | 2024-07-22 08:33 | DVHPN2 ---
Reviewed: Care Plan, H&P, Labs, Medications, Previous Orders, Radiology Changes from previous H/P or p: No Changes Eyes: No Pain, No Vision change, No Conjunctivae inflammation, No Eyelid inflammation, No Other, No Redness ENT: No Ear pain, No Ear discharge, No Nose pain, No Nose discharge, No Nose congestion, No Mouth pain, No Mouth swelling, No Throat pain, No Throat swelling, No Other Cardiovascular: No Chest Pain, No Palpitations, No Orthopnea, No Paroxysmal Noc. Dyspnea, No Edema, No Lt Headedness, No Other Respiratory: No Cough, No Dry, No Shortness of breath, No SOB with excertion, No Wheezing, No Hemoptysis, No Pleuritic Pain, No Sputum, No Other Gastrointestinal: Nausea; No Vomiting; Abdominal Pain; No Diarrhea, No Constipation, No Melena, No Hematochezia, No Other Genitourinary: No Dysuria, No Frequency, No Incontinence, No Hematuria, No Retention, No Other Musculoskeletal: No other, No neck pain, No shoulder pain, No arm pain, No back pain, No hand pain, No leg pain, No foot pain Skin: No Rash, No Lesions, No Jaundice, No Bruising, No Other Objective Vitals Vital Signs Date Time Temp Pulse Resp B/P (MAP) Pulse Ox O2 Delivery O2 Flow Rate FiO2 07/22/24 08:08 157/101 07/22/24 05:00 96.4 81 18 97 96.4 07/21/24 20:00 Room Air* 0 21 Intake/Output Intake and Output 07/22/24 07:00 Intake Total 4530 ml Output Total 3860 ml Balance 670 ml Intake Oral 3530 ml IV Total 1000 ml Output Urine Total 3860 ml # Bowel Movements 1 Medications Current Medications Medications Dose Ordered Sig/Yves Route Start Time Stop Time Status Last Admin Dose Admin Carvedilol 12.5 mg Q12HR PO 07/21/24 10:00 07/21/24 21:44 12.5 MG Hydralazine HCl 10 mg Q6HP PRN IV 07/20/24 22:45 07/22/24 08:08 10 MG Tamsulosin HCl 0.4 mg QPM PO 07/21/24 18:00 07/21/24 17:45 0.4 MG Sodium Chloride 10 ml Q8HR IV 07/21/24 06:00 07/22/24 05:12 10 ML Acetaminophen/ Hydrocodone Bitart 1 tab Q4HP PRN PO 07/20/24 22:45 07/22/24 08:07 1 TAB Ondansetron HCl 4 mg Q4HP PRN IV 07/20/24 22:45 Docusate Sodium 100 mg BIDPRN PRN PO 07/20/24 22:45 Acetaminophen 650 mg Q6HP PRN PO 07/20/24 22:45 Nitroglycerin 0.4 mg Q5MINP PRN SL 07/20/24 23:45 Morphine Sulfate 2 mg Q30M PRN IV 07/20/24 23:45 Sodium Chloride 1,000 ml @ 60 mls/hr [id number] IV 07/21/24 10:30 07/22/24 06:35 60 MLS/HR Laboratory Results Laboratory Tests 07/21/24 04:56 07/22/24 05:22 Chemistry Test 07/22/24 05:22 Calcium Level 8.3 mg/dL (8.7-10.4) L Phosphorus Level 3.4 mg/dL (2.4-5.1) Urinalysis Test 07/21/24 15:35 Urine Color Light-brown (Yellow) Urine Clarity Ex.turbid (Clear) Urine pH 6.5 (5.0-9.0) Urine Specific [place] 1.012 (1.001-1.035) Urine Protein 2+ (Negative) H Urine Ketones Negative (Negative) Urine Blood 2+ /uL (Negative) H Urine Nitrite Negative (Negative) Urine Bilirubin Negative (Negative) Urine Urobilinogen Normal mg/dL (Negative) Urine Leukocyte Esterase 3+ /uL (Negative) Urine RBC 44 /hpf (0 - 3) Urine WBC Clumps Present /hpf (None Seen) Urine Microscopic WBC 1406 /HPF (0-3) H Urine Squamous Epithelial Cells None seen /hpf (<5) Urine Amorphous Crystals Few /hpf (None Seen) Urine Bacteria None seen /hpf (None Seen) Urine Creatinine 61.23 mg/dL (30.0-125.0) Urine Protein/Creatinine Ratio 3.87 Urine Glucose Normal mg/dL (Normal) Urine Total Protein 237.2 mg/dL (1-14) H Labs and/or images reviewed: Labs reviewed by me, Image(s) reviewed by me Assessment/Plan Assessment/Plan Acute abdominal pain Multiple bladder calculi with bilateral hydronephrosis: Urology consult by Dr. Castillo appreciated. Patient needs cysto litholapaxy, holding aspirin History of kidney stones Indwelling Stuart Acute on chronic CHF exacerbation : Cardiology consult for Dr. Frank Hypotension History of stroke SULEMAN: Nephrology consult by Dr. Kang appreciated Time spent 55 minutes Advanced care planning time 20 minutes Patient is full code Plan discussed with: Patient My Orders Orders - BINH PEREZ MD Procedure Category Date Status Time * Urology Consult CONS 07/21/24 Transmitted 13:10 * Cardiology Consult CONS 07/21/24 Transmitted 14:32 Date of Service: Jul 22, 2024 Billing Provider: BINH PEREZ MD Common Visit Codes: [id number] INP/OBS CARE(HIGH) BINH PEREZ MD Jul 22, 2024 08:33
[2024-07-22] MEDS: cloNIDine HCL 0.1 MG TAB PO PRN (13:19)
--- NOTE | 2024-07-22 14:35 | DVHPN2 ---
Progress Note Date Seen: Jul 22, 2024 Medical Necessity Reason Pt with a Central, PICC or Fol: Yes The following are medically ne: Robins Catheter Reason for robins catheter: Bladder Retention/Obstruc Subjective Patient reports: Feels better Objective vital signs Vital Sign Date Time Temp Pulse Resp B/P (MAP) Pulse Ox O2 Delivery O2 Flow Rate FiO2 07/22/24 13:19 161/88 07/22/24 12:56 97.9 76 18 99 97.9 07/22/24 08:05 Room Air* 0 21 Total Intake and Output 07/21/24 07/21/24 07/22/24 15:00 23:00 07:00 Intake Total 2550 ml 1980 ml Output Total 1000 ml 1060 ml 1800 ml Balance -1000 ml 1490 ml 180 ml medications Current Medications Medications Dose Ordered Sig/Yves Route Start Time Stop Time Status Last Admin Dose Admin Carvedilol 12.5 mg Q12HR PO 07/21/24 10:00 07/22/24 08:45 12.5 MG Hydralazine HCl 10 mg Q6HP PRN IV 07/20/24 22:45 07/22/24 08:08 10 MG Tamsulosin HCl 0.4 mg QPM PO 07/21/24 18:00 07/21/24 17:45 0.4 MG Sodium Chloride 10 ml Q8HR IV 07/21/24 06:00 07/22/24 13:23 10 ML Acetaminophen/ Hydrocodone Bitart 1 tab Q4HP PRN PO 07/20/24 22:45 07/22/24 08:07 1 TAB Ondansetron HCl 4 mg Q4HP PRN IV 07/20/24 22:45 Docusate Sodium 100 mg BIDPRN PRN PO 07/20/24 22:45 Acetaminophen 650 mg Q6HP PRN PO 07/20/24 22:45 Nitroglycerin 0.4 mg Q5MINP PRN SL 07/20/24 23:45 Morphine Sulfate 2 mg Q30M PRN IV 07/20/24 23:45 Sodium Chloride 1,000 ml @ 60 mls/hr [id number] IV 07/21/24 10:30 07/22/24 06:35 60 MLS/HR Clonidine HCl 0.2 mg Q6HP PRN PO 07/22/24 12:45 07/22/24 13:19 0.2 MG Examination: GENERAL:Normal, CVS:Normal laboratory and microbiology Laboratory Tests 07/22/24 05:22 07/21/24 04:56 Test 07/22/24 05:22 Range/Units Serum Glucose 93 74-106 mg/dL Problem List/Assessment/Plan Problem List/Assessment/Plan 63-year-old male with a past history of kidney stones and urinary retention with Robins in place for the past week presents to the hospital complaining of flank pain admitted from the ER due to bilateral kidney stones and hydronephrosis. Acute kidney injury secondary to obstructive kidney disease. Chronic kidney disease unspecified baseline unknown Bilateral renal stones Bilateral hydronephrosis Chronic urinary retention with Robins catheter Hypocalcemia hyperkalemia IV fluid hydration potassium binder today and potassium restriction diet Avoid hypotension Continue to drain and monitoring output from Robins catheter IR for PCNT if cr continues to uptrend urology Plan discussed with: Patient CAMERON ELLIS MD Jul 22, 2024 14:35
[2024-07-22] MEDS: SODIUM ZIRCONIUM CYCL 10 GM PAK PO SCH (15:02)
[2024-07-23] VITALS (8 sets, daily range): BP systolic 133–189; BP diastolic 80–100; PULSE 60–99; RESP 17–21; TEMP 97–98; O2SAT 91–100
[2024-07-23] MEDS: MORPHINE SULFATE INJ 2 MG/ml SYRG IV PRN (07:55)
[2024-07-23 08:12] LABS: Anion Gap 12 (5-15); Sodium 142 mmol/L (136-145)
[2024-07-23 08:13] LABS: Calcium 9.2 mg/dL (8.7-10.4)
[2024-07-23 08:14] LABS: Carbon Dioxide 14 mmol/L (20-31); Chloride 116 mmol/L (98-107); Potassium 5.2 mmol/L (3.5-5.1)
[2024-07-23 08:18] LABS: BUN/Creatinine Ratio 16.5 (10.0-20.0); Blood Urea Nitrogen 47 mg/dL (9-23); Glucose 65 mg/dL (74-106)
--- NOTE | 2024-07-23 08:42 | DVHPN2 ---
Reviewed: Care Plan, H&P, Labs, Medications, Previous Orders, Radiology Changes from previous H/P or p: No Changes Eyes: No Pain, No Vision change, No Conjunctivae inflammation, No Eyelid inflammation, No Other, No Redness ENT: No Ear pain, No Ear discharge, No Nose pain, No Nose discharge, No Nose congestion, No Mouth pain, No Mouth swelling, No Throat pain, No Throat swelling, No Other Cardiovascular: No Chest Pain, No Palpitations, No Orthopnea, No Paroxysmal Noc. Dyspnea, No Edema, No Lt Headedness, No Other Respiratory: No Cough, No Dry, No Shortness of breath, No SOB with excertion, No Wheezing, No Hemoptysis, No Pleuritic Pain, No Sputum, No Other Gastrointestinal: Nausea; No Vomiting; Abdominal Pain; No Diarrhea, No Constipation, No Melena, No Hematochezia, No Other Genitourinary: No Dysuria, No Frequency, No Incontinence, No Hematuria, No Retention, No Other Musculoskeletal: No other, No neck pain, No shoulder pain, No arm pain, No back pain, No hand pain, No leg pain, No foot pain Skin: No Rash, No Lesions, No Jaundice, No Bruising, No Other Objective Vitals Vital Signs Date Time Temp Pulse Resp B/P (MAP) Pulse Ox O2 Delivery O2 Flow Rate FiO2 07/23/24 08:00 182/110 07/23/24 07:55 86 20 07/23/24 05:00 98.0 91 98.0 07/22/24 20:00 Room Air* 0 21 Intake/Output Intake and Output 07/23/24 07:00 Intake Total 1200 ml Output Total 3900 ml Balance -2700 ml Intake Oral 1200 ml Output Urine Total 3900 ml Medications Current Medications Medications Dose Ordered Sig/Yves Route Start Time Stop Time Status Last Admin Dose Admin Carvedilol 12.5 mg Q12HR PO 07/21/24 10:00 07/22/24 08:45 12.5 MG Hydralazine HCl 10 mg Q6HP PRN IV 07/20/24 22:45 07/23/24 03:22 10 MG Tamsulosin HCl 0.4 mg QPM PO 07/21/24 18:00 07/22/24 17:24 0.4 MG Sodium Chloride 10 ml Q8HR IV 07/21/24 06:00 07/22/24 21:11 10 ML Acetaminophen/ Hydrocodone Bitart 1 tab Q4HP PRN PO 07/20/24 22:45 07/23/24 02:40 1 TAB Ondansetron HCl 4 mg Q4HP PRN IV 07/20/24 22:45 Docusate Sodium 100 mg BIDPRN PRN PO 07/20/24 22:45 Acetaminophen 650 mg Q6HP PRN PO 07/20/24 22:45 Nitroglycerin 0.4 mg Q5MINP PRN SL 07/20/24 23:45 Morphine Sulfate 2 mg Q30M PRN IV 07/20/24 23:45 Sodium Chloride 1,000 ml @ 60 mls/hr [id number] IV 07/21/24 10:30 07/22/24 06:35 60 MLS/HR Clonidine HCl 0.2 mg Q6HP PRN PO 07/22/24 12:45 07/23/24 08:00 0.2 MG Zirconium Oxide 10 gm DAILY PO 07/22/24 14:30 07/27/24 14:29 07/22/24 15:02 10 GM Morphine Sulfate 2 mg Q4HPRN PRN IV 07/22/24 19:15 07/23/24 07:55 2 MG Laboratory Results Laboratory Tests 07/21/24 04:56 07/23/24 04:55 Chemistry Test 07/23/24 04:55 Calcium Level 9.2 mg/dL (8.7-10.4) Urinalysis Test 07/21/24 15:35 Urine Color Light-brown (Yellow) Urine Clarity Ex.turbid (Clear) Urine pH 6.5 (5.0-9.0) Urine Specific [place] 1.012 (1.001-1.035) Urine Protein 2+ (Negative) H Urine Ketones Negative (Negative) Urine Blood 2+ /uL (Negative) H Urine Nitrite Negative (Negative) Urine Bilirubin Negative (Negative) Urine Urobilinogen Normal mg/dL (Negative) Urine Leukocyte Esterase 3+ /uL (Negative) Urine RBC 44 /hpf (0 - 3) Urine WBC Clumps Present /hpf (None Seen) Urine Microscopic WBC 1406 /HPF (0-3) H Urine Squamous Epithelial Cells None seen /hpf (<5) Urine Amorphous Crystals Few /hpf (None Seen) Urine Bacteria None seen /hpf (None Seen) Urine Creatinine 61.23 mg/dL (30.0-125.0) Urine Protein/Creatinine Ratio 3.87 Urine Glucose Normal mg/dL (Normal) Urine Total Protein 237.2 mg/dL (1-14) H Labs and/or images reviewed: Labs reviewed by me, Image(s) reviewed by me Assessment/Plan Assessment/Plan Acute abdominal pain Multiple bladder calculi with bilateral hydronephrosis: Urology consult by Dr. Castillo appreciated. Patient needs cysto litholapaxy, holding aspirin History of kidney stones Indwelling Stuart Acute on chronic CHF exacerbation BNP more than 5000 : Cardiology consult for Dr. Frank appreciated Hypotension History of stroke SULEMAN: Nephrology consult by Dr. Kang appreciated Time spent 55 minutes Advanced care planning time 20 minutes Patient is full code Plan discussed with: Patient My Orders Orders - BINH PEREZ MD Procedure Category Date Status Time Clonidine Hcl Tablet PHA 07/22/24 In Process (Catapres Tablet) 12:45 Blood Culture EMILY 07/23/24 Logged 08:28 Urine Bacterial EMILY 07/23/24 Logged Culture 08:28 Ceftriaxone Ivpb PHA 07/23/24 Verified Rocephin 09:00 Date of Service: Jul 23, 2024 Billing Provider: BINH PEREZ MD Common Visit Codes: [id number] INP/OBS CARE(HIGH) Secondary Visit Codes: [id number] CARE PLAN 30 MINUTES BINH PEREZ MD Jul 23, 2024 08:42
[2024-07-23] MEDS: METOPROLOL TARTRATE 50 MG TAB PO ONE (09:54)
[2024-07-23] MEDS: cefTRIAXone 1GM/50ML D5W 50 ML IV SCH (09:56)
[2024-07-23] MEDS: METOPROLOL TARTRATE 50 MG TAB PO SCH (10:00)
[2024-07-23 10:45] LABS: Amphetamine Screen, Urine Neg (NEGATIVE)
[2024-07-23 10:46] LABS: Opiate Scree,Urine Neg (NEGATIVE)
[2024-07-23 10:52] LABS: Barbiturate Scree,Urine Neg (NEGATIVE); Benzodiazephine Screen, Urine Neg (NEGATIVE); Cannabinoid Screen, Urine Neg (NEGATIVE); Cocaine Screen, Urine Neg (NEGATIVE); Phencyclidine Screen, Urine Neg (NEGATIVE)
--- NOTE | 2024-07-23 10:57 | DVHINCON2 ---
Date Seen: Jul 23, 2024 Referring Physician Dionisio Reason for Consultation CHF History of Present Illness 63-year-old male with PMH for HFrEF, CVA, HTN, kidney stones, cardiomyopathy (EF less than 20%), medication noncompliance, amphetamine abuse presents to the hospital with abdominal pain, shortness of breath. Patient had CT abdomen done revealing bilateral hydronephrosis and hydroureter with multiple large bladder calculi. Patient noted to have elevated creatinine at 2.91, BUN 39, BNP greater than 5000. EKG reviewed and shows sinus rhythm at 88 beats per minute, RBBB, T- wave abnormality. Past Medical History As stated above Past Surgical History Denies previous cardiac surgeries Family History: Patient reports no known family medical history. Family History Denies pertinent family cardiac history Social History Occasional alcohol use, patient has occasional amphetamine use with recent use. Half to 1 pack a day smoker. Allergies: Coded Allergies: NO KNOWN ALLERGIES (Unverified , 07/20/24) Home Meds Unable to Obtain Active Prescriptions or Reported Meds Current Medications Current Medications Medications (Trade) Dose Ordered Sig/Yves Route PRN Reason Start Time Stop Time Status Last Admin Clonidine HCl (Catapres Tablet) 0.2 mg Q6HP PRN PO SBP>150 07/22/24 12:45 07/23/24 08:00 Zirconium Oxide (Lokelma) 10 gm DAILY PO 07/22/24 14:30 07/27/24 14:29 07/23/24 10:23 Morphine Sulfate 2 mg Q4HPRN PRN IV SEVERE PAIN (7-10 PAIN SCALE) 07/22/24 19:15 07/23/24 07:55 Ceftriaxone Sodium 50 ml @ 100 mls/hr DAILY@09 IV 07/23/24 09:00 07/23/24 09:56 Metoprolol Tartrate (Lopressor Tablet) 50 mg BID PO 07/23/24 10:00 Review of Systems Constitutional: No: Fever, Chills, Sweats, Weakness, Malaise, Other Eyes: No: Pain, Vision change, Conjunctivae inflammation, Eyelid inflammation, Other, Redness ENT: No: Ear pain, Ear discharge, Nose pain, Nose discharge, Nose congestion, Mouth pain, Mouth swelling, Throat pain, Throat swelling, Other Respiratory: No: Cough, Dry, Wheezing, Hemoptysis, Pleuritic Pain, Sputum, Wheezing, Other positive: Shortness of breath, SOB with exertion, Cardiovascular: ; No: Chest Pain Palpitations, Orthopnea, Paroxysmal Noc. Dyspnea, Edema, Lt Headedness, Other Gastrointestinal: No: Nausea, Vomiting, Abdominal Pain, Diarrhea, Constipation, Melena, Hematochezia, Other Genitourinary: No Dysuria, No Frequency, No Incontinence, No Hematuria, No Retention, No Other Musculoskeletal: neck pain; No: other, shoulder pain, arm pain, back pain, hand pain, leg pain, foot pain Skin: No: Rash, Lesions, Jaundice, Bruising, Other Neurological: Other (Dizziness, headache.); No: Weakness, Numbness, Incoordination, Change in speech, Confusion, Seizures Vital Signs Vital Signs Date Time Temp Pulse Resp B/P (MAP) Pulse Ox O2 Delivery O2 Flow Rate FiO2 07/23/24 10:00 74 145/86 07/23/24 09:30 97.7 21 98 97.7 07/22/24 20:00 Room Air* 0 21 Physical Exam General appearance: Patient is well-developed, well-nourished, in no acute distress. HEENT: Exam shows: Normocephalic, atraumatic, PERRLA, EOMI Neck: Supple, no bruits Chest: Equal chest excursion bilaterally. Breath sounds diminished. Heart: Rhythm: Regular rate; no murmur or gallop Abdomen: Exam shows: Soft, nontender, nondistended Musculoskeletal: No clubbing, no cyanosis, no lower extremity edema Dermatology: Skin warm, moist. Neurological: Exam shows: Alert and oriented x4, normal speech Available prior records, labs, EKG, rhythm strips reviewed and interpreted Labs/Diagnostic Data Labs Test 07/23/24 09:50 07/23/24 04:55 07/22/24 05:22 07/21/24 15:35 Range/Units Sodium Level 142 136-145 mmol/L Potassium Level 5.2 H 3.5-5.1 mmol/L Chloride Level 116 H 98-107 mmol/L Carbon Dioxide Level 14 L 20-31 mmol/L Anion Gap 12 5-15 Blood Urea Nitrogen 47 H 9-23 mg/dL Creatinine 2.84 H 0.700-1.30 mg/dL Glomerular Filtration Rate Calc 24 >90 mL/min BUN/Creatinine Ratio 16.5 10.0-20.0 Serum Glucose 65 L 74-106 mg/dL Calcium Level 9.2 8.7-10.4 mg/dL Phosphorus Level 3.4 2.4-5.1 mg/dL Urine Color Light-brown Yellow Urine Clarity Ex.turbid Clear Urine pH 6.5 5.0-9.0 Urine Specific [place] 1.012 1.001-1.035 Urine Protein 2+ H Negative Urine Ketones Negative Negative Urine Blood 2+ H Negative /uL Urine Nitrite Negative Negative Urine Bilirubin Negative Negative Urine Urobilinogen Normal Negative mg/dL Urine Leukocyte Esterase 3+ Negative /uL Urine RBC 44 0 - 3 /hpf Urine WBC Clumps Present None Seen /hpf Urine Microscopic WBC 1406 H 0-3 /HPF Urine Squamous Epithelial Cells None seen <5 /hpf Urine Amorphous Crystals Few None Seen /hpf Urine Bacteria None seen None Seen /hpf Urine Creatinine 61.23 30.0-125.0 mg/dL Urine Protein/Creatinine Ratio 3.87 Urine Glucose Normal Normal mg/dL Urine Total Protein 237.2 H 1-14 mg/dL Test 07/21/24 04:56 07/20/24 19:40 Range/Units White Blood Count 6.4 4.4-10.8 10^3/uL Red Blood Count 4.54 4.5-5.90 10^6/uL Hemoglobin 10.6 L 13.5-17.5 g/dL Hematocrit 34.0 L 41.0-53.0 % Mean Corpuscular Volume 75.0 L 80.0-100.0 fL Mean Corpuscular Hemoglobin 23.4 L 28.0-32.0 pg Mean Corpuscular Hemoglobin Concent 31.2 L 32.0-36.0 g/dL Red Cell Distribution Width 24.6 H 11.8-14.3 % Platelet Count 336 140-450 10^3/uL Mean Platelet Volume 6.6 L 6.9-10.8 fL Neutrophils (%) (Auto) 63.0 37.0-80.0 % Lymphocytes (%) (Auto) 20.3 10.0-50.0 % Monocytes (%) (Auto) 11.0 0.0-12.0 % Eosinophils (%) (Auto) 4.8 0.0-7.0 % Basophils (%) (Auto) 0.9 0.0-2.0 % Neutrophils # (Auto) 4.0 1.6-8.6 10 ^3/uL Lymphocytes # (Auto) 1.3 0.4-5.4 10 ^3/uL Monocytes # (Auto) 0.7 0-1.3 10 ^3/uL Eosinophils # (Auto) 0.3 0-0.8 10 ^3/uL Basophils # (Auto) 0.1 0-0.2 10 ^3/uL Nucleated Red Blood Cells 0.0 % Hemoglobin A1c 5.7 <5.7 % A1C Total Bilirubin 0.3 0.2-1.0 mg/dL Aspartate Amino Transferase (AST) 34 0-34 U/L Alanine Aminotransferase (ALT) 34 7-40 U/L Alkaline Phosphatase 105 46-116 U/L Total Protein 6.5 5.7-8.2 g/dL Albumin 3.8 3.2-4.8 g/dL Vitamin D 25-Hydroxy 35.1 30.0-100 ng/mL Parathyroid Hormone (Intact) 296.0 H 18.4-80.1 pg/mL B-Type Natriuretic Peptide > 5000.00 0-100 pg/mL Lipase 42 12-53 U/L Assessment * Acute on chronic HFrEF - BNP greater than 5000. Patient breathing stable on room air. Does not seem overloaded. Continue monitoring fluid volume status. Diuresis defer to Nephrology given SULEMAN. Follow up echo. * Cardiomyopathy - (previous EF<20%) likely amphetamine induced. Resume and continue GDMT, titrate as tolerated. Froy/Arb held in setting of SULEMAN/CKD. * USLEMAN, CKD, bilateral renal stones, hydronephrosis - urology and nephrology on board, follow-up recs * Uncontrolled HTN - metoprolol 100 mg p.o. daily, titrate as tolerated. Not on Froy/Arb due to SULEMAN. Amlodipine 10 mg p.o. daily. Hydralazine p.r.n.. * Medication noncompliance - advised compliance. * Amphetamine abuse - endorses recent use, UDS pending. Strongly advised against continued use. Case Discussed with Dr Frank. Continue plan as above. Critical care, time spent: 45 minutes This medical document was created using an electronic medical record system with voice recognition software and computerized dictation system. Although this document has been carefully reviewed, there might still be some phonetic and typographical errors. Occasional wrong-word or ``sound-alike substitutions may have occurred due to the inherent limitations of voice recognition software. These areas are purely typographical due to imperfections of the software programs and do not reflect any compromise in the patient's medical care. Please read the chart carefully and recognize, using context, where these substitutions have occurred. Thank you for allowing me to participate in the management of this patient. The treatment plan was discussed with and agreed upon by patient/family including requesting consultants and ordering of imaging/procedures. Plan discussed with: Patient NYHA 2 Physical activity limitations: Class3(Marked) ordinary Date of Service: Jul 23, 2024 Billing Provider: FABIANA ABDI Cardiology Common Codes: [id number] INP/OBS CARE (High), [id number] CARE 30-74 MIN FABIANA ABDI Jul 23, 2024 10:57
[2024-07-23] MEDS: amLODIPine BESYLATE 5 MG TAB PO ONE (11:14)
[2024-07-23 12:04] LABS: INR 1.01 (0.9-1.15); Prothrombin Time 10.7 sec (9.3-11.8)
--- NOTE | 2024-07-23 12:08 | DVHPN2 ---
Progress Note Date Seen: Jul 23, 2024 Medical Necessity Reason Pt with a Central, PICC or Fol: Yes The following are medically ne: Robins Catheter Reason for robins catheter: Bladder Retention/Obstruc Subjective Review of Systems: Deferred Objective vital signs Vital Sign Date Time Temp Pulse Resp B/P (MAP) Pulse Ox O2 Delivery O2 Flow Rate FiO2 07/23/24 11:14 123/80 07/23/24 10:00 74 07/23/24 09:30 97.7 21 98 97.7 07/23/24 08:05 Room Air* 0 21 Total Intake and Output 07/22/24 07/22/24 07/23/24 15:00 23:00 07:00 Intake Total 600 ml 600 ml Output Total 850 ml 1200 ml 1850 ml Balance -850 ml -600 ml -1250 ml medications Current Medications Medications Dose Ordered Sig/Yves Route Start Time Stop Time Status Last Admin Dose Admin Hydralazine HCl 10 mg Q6HP PRN IV 07/20/24 22:45 07/23/24 03:22 10 MG Tamsulosin HCl 0.4 mg QPM PO 07/21/24 18:00 07/22/24 17:24 0.4 MG Sodium Chloride 10 ml Q8HR IV 07/21/24 06:00 07/23/24 10:24 10 ML Acetaminophen/ Hydrocodone Bitart 1 tab Q4HP PRN PO 07/20/24 22:45 07/23/24 02:40 1 TAB Ondansetron HCl 4 mg Q4HP PRN IV 07/20/24 22:45 Docusate Sodium 100 mg BIDPRN PRN PO 07/20/24 22:45 Acetaminophen 650 mg Q6HP PRN PO 07/20/24 22:45 Nitroglycerin 0.4 mg Q5MINP PRN SL 07/20/24 23:45 Morphine Sulfate 2 mg Q30M PRN IV 07/20/24 23:45 Sodium Chloride 1,000 ml @ 60 mls/hr [id number] IV 07/21/24 10:30 07/22/24 06:35 60 MLS/HR Clonidine HCl 0.2 mg Q6HP PRN PO 07/22/24 12:45 07/23/24 08:00 0.2 MG Zirconium Oxide 10 gm DAILY PO 07/22/24 14:30 07/27/24 14:29 07/23/24 10:23 10 GM Morphine Sulfate 2 mg Q4HPRN PRN IV 07/22/24 19:15 07/23/24 07:55 2 MG Ceftriaxone Sodium 50 ml @ 100 mls/hr DAILY@09 IV 07/23/24 09:00 07/23/24 09:56 100 MLS/HR Metoprolol Succinate 200 mg DAILY PO 07/24/24 10:00 Amlodipine Besylate 10 mg DAILY PO 07/24/24 10:00 Examination: GENERAL:Normal, CVS:Normal, SKIN:Normal, :Abnormal laboratory and microbiology Laboratory Tests 07/23/24 04:55 07/21/24 04:56 Test 07/23/24 04:55 Range/Units Serum Glucose 65 L 74-106 mg/dL Problem List/Assessment/Plan Problem List/Assessment/Plan 63-year-old male with a past history of kidney stones and urinary retention with Robins in place for the past week presents to the hospital complaining of flank pain admitted from the ER due to bilateral kidney stones and hydronephrosis. Acute kidney injury secondary to obstructive kidney disease. Chronic kidney disease unspecified baseline unknown Bilateral renal stones Bilateral hydronephrosis Chronic urinary retention with Robins catheter Hypocalcemia hyperkalemia IV fluid hydration potassium binder today and potassium restriction diet Avoid hypotension Continue to drain and monitoring output from Robins catheter IR for PCNT urology Plan discussed with: Patient My Orders My Orders Orders - CAMERON ELLIS MD Procedure Category Date Status Time Cardiac DIET 07/22/24 Transmitted Diet-2gna,Lofat,Lochol Dinner Sodium Zirconium PHA 07/22/24 In Process Cyclosilicate 14:30 CAMERON ELLIS MD Jul 23, 2024 12:08
--- NOTE | 2024-07-23 13:15 | DVH ---
US KIDNEY HISTORY: hydronephrosis COMPARISON: 07/20/24 TECHNIQUE: Transverse and longitudinal grayscale and color doppler images were obtained of the kidney s and bladder. FINDINGS: Right kidney: Size: 10.9 cm Cortical thickness: Normal Echogenicity: Normal Stones: None Masses: 2.0 cm cyst. Hydronephrosis: yes Ureters: Not well visualized. Other: None Left kidney: Size: 10.5 cm Cortical thickness: Normal Echogenicity: Normal Stones: None Masses: 1.0 cm cyst. Hydronephrosis: yes Ureters: Not well visualized. Other: None Bladder: Stuart and bladder stones are seen. Other: None. IMPRESSION: Trace bilateral hydronephrosis. Stuart and bladder stones are noted.
[2024-07-23] MEDS: SODIUM BICARB 50mEq/50ml Vial 75 ML in SOD CHL 0.45% 1,000 ML IV SCH (13:28)
--- NOTE | 2024-07-23 15:43 | DVHSR ---
APPROVED REPORT EXAM: Two-dimensional and M-mode echocardiogram with Doppler and color Doppler. Blood Pressure: 145/86 mmHg INDICATION CHF RISK FACTORS Height: 5' 6", Weight: 128 DIMENSIONS LVDd5.8 (3.8-5.7cm)LA (2D)4.9 (1.9-4.0cm)Aortic Root3.3 (2.0-3.7cm) LVDs5.1 (2.5-4.0cm)LA (MM) (1.9-4.0cm)Aortic Cusp Exc1.9 (1.5-2.0cm) EF (%) 20.0 (55-70%)Rt. Atrium4.8 (1.9-4.0cm)Asc. Aorta cm IVSd1.1 (0.7-1.1cm)RV (D) (1.8-2.4cm) PWd1.2 (0.7-1.1cm) Mitral Valve MitralMitral Stenosis E wave1.00m/sMV Mean GR.mmHg A wave0.60m/sMV Peak GR.mmHg E/A ratio1.72D MVAcm2 Aortic Valve Aortic ValveAortic Stenosis V10.50m/Nelson Mean GR.2mmHg V20.80m/Nelson Peak GR.3mmHg LVOT Diameter2.2 (1.8-2.4cm)Doppler AVA2.37cm2 Pulmonic Valve V20.40m/s Tricuspid Valve TR Velocity3.00m/s [id number] Conclusion Sinus rhythm. Biatrial enlargement. LV enlargement with concentric LVH. Valves appear to be structurally normal. Left ventricular systolic performance is diminished. EF is approximately 25% with global hypokinesis . Diminished RV function. Mild MR. Moderate tricuspid insufficiency. No pericardial effusion masses or vegetations.
[2024-07-23] MEDS: TEMAZEPAM 15 MG CAP PO ONE (20:56)
[2024-07-24] VITALS (12 sets, daily range): BP systolic 130–156; BP diastolic 68–95; PULSE 68–81; RESP 13–20; TEMP 97–98; O2SAT 95–99
[2024-07-24] MEDS ORDERED: LORazepam 2MG/ML-1ML VIAL IM ONE (08:00)
[2024-07-24] MEDS: LORazepam 2MG/ML-1ML VIAL IV ONE (08:49)
[2024-07-24] MEDS: METOPROLOL SUCCINATE XL 50 MG TAB PO SCH (08:50)
[2024-07-24] MEDS: amLODIPine BESYLATE 5 MG TAB PO SCH (08:50)
--- NOTE | 2024-07-24 09:47 | DVHPN2 ---
Reviewed: Care Plan, H&P, Labs, Medications, Previous Orders, Radiology Changes from previous H/P or p: No Changes Eyes: No Pain, No Vision change, No Conjunctivae inflammation, No Eyelid inflammation, No Other, No Redness ENT: No Ear pain, No Ear discharge, No Nose pain, No Nose discharge, No Nose congestion, No Mouth pain, No Mouth swelling, No Throat pain, No Throat swelling, No Other Cardiovascular: No Chest Pain, No Palpitations, No Orthopnea, No Paroxysmal Noc. Dyspnea, No Edema, No Lt Headedness, No Other Respiratory: No Cough, No Dry, No Shortness of breath, No SOB with excertion, No Wheezing, No Hemoptysis, No Pleuritic Pain, No Sputum, No Other Gastrointestinal: Nausea; No Vomiting; Abdominal Pain; No Diarrhea, No Constipation, No Melena, No Hematochezia, No Other Genitourinary: No Dysuria, No Frequency, No Incontinence, No Hematuria, No Retention, No Other Musculoskeletal: No other, No neck pain, No shoulder pain, No arm pain, No back pain, No hand pain, No leg pain, No foot pain Skin: No Rash, No Lesions, No Jaundice, No Bruising, No Other Objective Vitals Vital Signs Date Time Temp Pulse Resp B/P (MAP) Pulse Ox O2 Delivery O2 Flow Rate FiO2 07/24/24 08:50 175/106 07/24/24 08:50 81 07/24/24 05:00 97.0 15 97 97.0 07/23/24 20:00 Room Air* 0 21 Intake/Output Intake and Output 07/24/24 07:00 Intake Total 1330 ml Output Total 4100 ml Balance -2770 ml Intake Oral 1280 ml IV Total 50 ml Output Urine Total 4100 ml # Bowel Movements 1 Medications Current Medications Medications Dose Ordered Sig/Yves Route Start Time Stop Time Status Last Admin Dose Admin Hydralazine HCl 10 mg Q6HP PRN IV 07/20/24 22:45 07/23/24 03:22 10 MG Tamsulosin HCl 0.4 mg QPM PO 07/21/24 18:00 07/23/24 18:07 0.4 MG Sodium Chloride 10 ml Q8HR IV 07/21/24 06:00 07/24/24 06:00 10 ML Acetaminophen/ Hydrocodone Bitart 1 tab Q4HP PRN PO 07/20/24 22:45 07/23/24 22:24 1 TAB Ondansetron HCl 4 mg Q4HP PRN IV 07/20/24 22:45 Docusate Sodium 100 mg BIDPRN PRN PO 07/20/24 22:45 Acetaminophen 650 mg Q6HP PRN PO 07/20/24 22:45 Nitroglycerin 0.4 mg Q5MINP PRN SL 07/20/24 23:45 Morphine Sulfate 2 mg Q30M PRN IV 07/20/24 23:45 Clonidine HCl 0.2 mg Q6HP PRN PO 07/22/24 12:45 07/23/24 08:00 0.2 MG Zirconium Oxide 10 gm DAILY PO 07/22/24 14:30 07/27/24 14:29 07/24/24 08:56 10 GM Morphine Sulfate 2 mg Q4HPRN PRN IV 07/22/24 19:15 07/23/24 07:55 2 MG Ceftriaxone Sodium 50 ml @ 100 mls/hr DAILY@09 IV 07/23/24 09:00 07/24/24 08:56 100 MLS/HR Metoprolol Succinate 200 mg DAILY PO 07/24/24 10:00 07/24/24 08:50 200 MG Amlodipine Besylate 10 mg DAILY PO 07/24/24 10:00 07/24/24 08:50 10 MG Sodium Bicarbonate 75 ml/ Sodium Chloride 1,075 ml @ 75 mls/hr [id number] IV 07/23/24 12:15 07/23/24 13:28 75 MLS/HR Laboratory Results Laboratory Tests 07/21/24 04:56 07/23/24 04:55 Coagulation Test 07/23/24 09:51 Prothrombin Time 10.7 sec (9.3-11.8) Prothrombin Time INR 1.01 (0.9-1.15) Urinalysis Test 07/21/24 15:35 Urine Color Light-brown (Yellow) Urine Clarity Ex.turbid (Clear) Urine pH 6.5 (5.0-9.0) Urine Specific [place] 1.012 (1.001-1.035) Urine Protein 2+ (Negative) H Urine Ketones Negative (Negative) Urine Blood 2+ /uL (Negative) H Urine Nitrite Negative (Negative) Urine Bilirubin Negative (Negative) Urine Urobilinogen Normal mg/dL (Negative) Urine Leukocyte Esterase 3+ /uL (Negative) Urine RBC 44 /hpf (0 - 3) Urine WBC Clumps Present /hpf (None Seen) Urine Microscopic WBC 1406 /HPF (0-3) H Urine Squamous Epithelial Cells None seen /hpf (<5) Urine Amorphous Crystals Few /hpf (None Seen) Urine Bacteria None seen /hpf (None Seen) Urine Creatinine 61.23 mg/dL (30.0-125.0) Urine Protein/Creatinine Ratio 3.87 Urine Glucose Normal mg/dL (Normal) Urine Total Protein 237.2 mg/dL (1-14) H Microbiology Microbiology Date/Time Source Procedure Growth Status 07/23/24 09:50 Voided Urine Urine Culture - Preliminary Resulted Labs and/or images reviewed: Labs reviewed by me, Image(s) reviewed by me Assessment/Plan Assessment/Plan Acute abdominal pain Multiple bladder calculi with bilateral hydronephrosis: Urology consult by Dr. Castillo appreciated. Patient needs cysto litholapaxy, holding aspirin Patient getting left nephrostomy tube today History of kidney stones Indwelling Stuart Acute on chronic CHF exacerbation BNP more than 5000 : Cardiology consult for Dr. Frank appreciated ejection fraction 20 % secondary to chronic meth use, patient claims he stopped using meth. Hypotension History of stroke SULEMAN: Nephrology consult by Dr. Kang appreciated Time spent 55 minutes Advanced care planning time 20 minutes Patient is full code Plan discussed with: Patient My Orders Orders - BINH PEREZ MD Procedure Category Date Status Time D/C Sitter ORDERS 07/24/24 Verified 09:44 Date of Service: Jul 24, 2024 Billing Provider: BINH PEREZ MD Common Visit Codes: [id number] INP/OBS CARE(HIGH) BINH PEREZ MD Jul 24, 2024 09:47
--- NOTE | 2024-07-24 10:13 | DVH ---
US KIDNEY HISTORY: EVALUATION FOR BILATERAL HYDRONEPHROSIS COMPARISON: US KIDNEY on DOS: 07/23/24 TECHNIQUE: Transverse and longitudinal grayscale and color doppler images were obtained of the kidney s and bladder. FINDINGS: Right kidney: Size: 9.7 cm Cortical thickness: Normal Echogenicity: Normal Stones: None Masses: None Hydronephrosis: yes Ureters: Not well visualized. Other: None Left kidney: Size: 9.3 cm Cortical thickness: Normal Echogenicity: Normal Stones: None Masses: None Hydronephrosis: yes Ureters: Not well visualized. Other: None Bladder: Bladder stones. Other: None. IMPRESSION: Mild right hydronephrosis, slightly increased to prior US. Trace left hydronephrosis. Bladder stones.
[2024-07-24] MEDS: IODIXANOL 320MG/ML 100ML BTL IV ONE (11:54)
[2024-07-24] MEDS: MIDAZOLAM HCL 2MG/2ML 2ml VIAL (1mg/ml) ONE (11:55)
[2024-07-24] MEDS: LIDOCAINE 2%HCL (LOCAL ANESTH.) INJ 20ML MDV ONE (11:55)
[2024-07-24] MEDS: fentaNYL CITRATE 100 MCG/2 ML VL ONE (11:55)
--- NOTE | 2024-07-24 14:54 | DVH ---
XY PERCUTANEOUS NEPHROSTOMY, HISTORY: Right nephrostomy tube placement for obstructive uropathy despite Stuart and SULEMAN. PROCEDURE: Informed consent was obtained. The patient was placed on the fluoroscopic table in a prone position and IV sedation administered. The right flank was prepped with chlorhexidine which was allo wed to dry and draped in the usual sterile fashion. Time out was performed. and the soft tissues infi ltrated with 1% lidocaine local anesthetic. Utilizing ultrasound guidance, a 21 gauge Accu Stick need le was advanced from a posterolateral approach into an upper pole calyx, and a small amount of contra st was injected under fluoroscopy to confirm positioning. Over a mandril wire, exchange was made to a non-vascular access set, through which was advanced an 0.035 wire. Following serial dilation, an 8.5 [place] multipurpose nephrostomy catheter was placed with tip pigtailed within the renal pelvis. Posi tion was confirmed with antegrade nephrostogram. The catheter was secured in place and connected to g ravity drainage. A sterile dressing was applied. No immediate complication was identified. DAP 50 FLUOROSCOPY TIME: 1.5 minutes. CONTRAST USED: 10 mL . SEDATION: Dr. Obed Vila was personally responsible for the administration of moderate sedation during the procedure performed, including the use of an independent trained observer who had no other duties during the procedure. The drugs utilized were IV fentanyl and versed (see nursing log for details). The total time of supervision by the attending physician was approximately 30 minutes. FINDINGS: Mildly dilated right renal collecting system involving the calyces/renal pelvis/ureter . New 8.5 citizen of [place] nephrostomy tube via a posterior upper pole calyceal access, with loop coiled withi n the renal pelvis. IMPRESSION: Right hydronephrosis due to obstructive uropathy, status post placement of 8.5 citizen of [place] right percu taneous nephrostomy catheter. PLAN: Routine catheter care with routine exchanges in 3 months.
--- NOTE | 2024-07-24 14:54 | DVH ---
XY PERCUTANEOUS NEPHROSTOMY, HISTORY: Right nephrostomy tube placement for obstructive uropathy despite Stuart and SULEMAN. PROCEDURE: Informed consent was obtained. The patient was placed on the fluoroscopic table in a prone position and IV sedation administered. The right flank was prepped with chlorhexidine which was allo wed to dry and draped in the usual sterile fashion. Time out was performed. and the soft tissues infi ltrated with 1% lidocaine local anesthetic. Utilizing ultrasound guidance, a 21 gauge Accu Stick need le was advanced from a posterolateral approach into an upper pole calyx, and a small amount of contra st was injected under fluoroscopy to confirm positioning. Over a mandril wire, exchange was made to a non-vascular access set, through which was advanced an 0.035 wire. Following serial dilation, an 8.5 [place] multipurpose nephrostomy catheter was placed with tip pigtailed within the renal pelvis. Posi tion was confirmed with antegrade nephrostogram. The catheter was secured in place and connected to g ravity drainage. A sterile dressing was applied. No immediate complication was identified. DAP 50 FLUOROSCOPY TIME: 1.5 minutes. CONTRAST USED: 10 mL . SEDATION: Dr. Obed Vila was personally responsible for the administration of moderate sedation during the procedure performed, including the use of an independent trained observer who had no other duties during the procedure. The drugs utilized were IV fentanyl and versed (see nursing log for details). The total time of supervision by the attending physician was approximately 30 minutes. FINDINGS: Mildly dilated right renal collecting system involving the calyces/renal pelvis/ureter . New 8.5 [place] nephrostomy tube via a posterior upper pole calyceal access, with loop coiled withi n the renal pelvis. IMPRESSION: Right hydronephrosis due to obstructive uropathy, status post placement of 8.5 [place] right percu taneous nephrostomy catheter. PLAN: Routine catheter care with routine exchanges in 3 months.
[2024-07-24] MEDS: MORPHINE SULFATE INJ 2 MG/ml SYRG IV PRN (16:03)
[2024-07-24] MEDS: HYDROmorphone HCL 2 MG/ML VL/or syr IV ONE ×2 (16:39→19:08)
--- NOTE | 2024-07-24 19:48 | DVHPN2 ---
Progress Note Date Seen: Jul 24, 2024 Medical Necessity Reason Pt with a Central, PICC or Fol: Yes The following are medically ne: Robins Catheter Reason for robins catheter: Bladder Retention/Obstruc Subjective Patient reports: No new complaints Review of Systems: Deferred Objective vital signs Vital Sign Date Time Temp Pulse Resp B/P (MAP) Pulse Ox O2 Delivery O2 Flow Rate FiO2 07/24/24 19:08 78 20 151/87 07/24/24 16:51 98.0 98 98.0 07/24/24 07:55 Room Air* 0 21 Total Intake and Output 07/23/24 07/23/24 07/24/24 15:00 23:00 07:00 Intake Total 50 ml 650 ml 630 ml Output Total 1000 ml 1800 ml 1300 ml Balance -950 ml -1150 ml -670 ml medications Current Medications Medications Dose Ordered Sig/Yves Route Start Time Stop Time Status Last Admin Dose Admin Hydralazine HCl 10 mg Q6HP PRN IV 07/20/24 22:45 07/24/24 16:08 10 MG Tamsulosin HCl 0.4 mg QPM PO 07/21/24 18:00 07/23/24 18:07 0.4 MG Sodium Chloride 10 ml Q8HR IV 07/21/24 06:00 07/24/24 14:18 10 ML Acetaminophen/ Hydrocodone Bitart 1 tab Q4HP PRN PO 07/20/24 22:45 07/24/24 14:44 1 TAB Ondansetron HCl 4 mg Q4HP PRN IV 07/20/24 22:45 Docusate Sodium 100 mg BIDPRN PRN PO 07/20/24 22:45 Acetaminophen 650 mg Q6HP PRN PO 07/20/24 22:45 Nitroglycerin 0.4 mg Q5MINP PRN SL 07/20/24 23:45 Morphine Sulfate 2 mg Q30M PRN IV 07/20/24 23:45 Clonidine HCl 0.2 mg Q6HP PRN PO 07/22/24 12:45 07/23/24 08:00 0.2 MG Zirconium Oxide 10 gm DAILY PO 07/22/24 14:30 07/27/24 14:29 07/24/24 08:56 10 GM Morphine Sulfate 2 mg Q4HPRN PRN IV 07/22/24 19:15 07/24/24 16:03 2 MG Ceftriaxone Sodium 50 ml @ 100 mls/hr DAILY@09 IV 07/23/24 09:00 07/24/24 08:56 100 MLS/HR Metoprolol Succinate 200 mg DAILY PO 07/24/24 10:00 07/24/24 08:50 200 MG Amlodipine Besylate 10 mg DAILY PO 07/24/24 10:00 07/24/24 08:50 10 MG Sodium Bicarbonate 75 ml/ Sodium Chloride 1,075 ml @ 75 mls/hr [id number] IV 07/23/24 12:15 07/24/24 17:51 75 MLS/HR laboratory and microbiology Laboratory Tests 07/23/24 04:55 07/21/24 04:56 Test 07/23/24 04:55 Range/Units Serum Glucose 65 L 74-106 mg/dL Microbiology Date/Time Source Procedure Growth Status 07/23/24 09:51 Blood Blood Culture - Preliminary NO GROWTH AFTER 24 HOURS OF INCUBATION. Resulted 07/23/24 09:50 Voided Urine Urine Culture - Preliminary Resulted Problem List/Assessment/Plan Problem List/Assessment/Plan Acute kidney injury secondary to obstructive kidney disease. Chronic kidney disease unspecified baseline unknown Bilateral renal stones Bilateral hydronephrosis Chronic urinary retention with Robins catheter Hypocalcemia hyperkalemia halfns+75meq bicarb labs no new today,check AM labs Avoid hypotension Continue to drain and monitoring output from Robins catheter IR for PCNT urology Plan discussed with: Patient My Orders My Orders Orders - HOWARD DELAROSA MD Procedure Category Date Status Time Basic Metabolic Panel LAB 07/25/24 Verified 04:00 Dietary Evaluation Review Comments: 1) Continue cardiac 2g K diet 2) Encourage optimal PO intake 2) Follow-up with and urology and nephrology 3) Continue to monitor I&O, labs, and skin integrity Expected Outcomes/Goals: 1) appetite and labs to improve 2) f/u in 3-5 days HOWARD DELAROSA MD Jul 24, 2024 19:48
--- NOTE | 2024-07-24 21:03 | DVH ---
CT LUMBAR SPINE WITHOUT CONTRAST: HISTORY: RIGHT LUMBAR SPINE NEPHROSTOMY TUBE CHECKING FOR PLACEMENT COMPARISON: None CONTRAST: Study was performed without contrast. TECHNIQUE: High-resolution imaging through the lumbar spine was performed. Reconstructed coronal sagi ttal and oblique axial images were obtained. The sensitivity of the exam for evaluation of the spinal canal is limited without intrathecal contrast. Dose reduction technique was used on this scan by uti lizing automated exposure control, adjustment of the mA and/or kV according to the patient size. DICO M format image data available to non-affiliated external healthcare facilities or entities on a [facility] [employer] free, reciprocally searchable basis with patient authorization for at least a 12 month perio d after the study. CHOOSE WHERE 3Ds WERE PERFORMED FROM THE PHILLIPS TAB ON THE LEFT. IF NOT PERFORMED, DELETE THIS LINE. FINDINGS: There is no acute displaced fracture. There are multilevel degenerative changes of the lumbar spine characterized by endplate osteophytosis and intervertebral disc space narrowing. There is multilevel facet arthropathy most pronounced within the lower lumbar spine, with accompanying severe bilateral n euroforaminal stenosis. A posterior disc protrusion with associated osteophyte at L1-2 effaces the th ecal sac contributes to at least mild spinal stenosis. Interval placement of a right percutaneous nephrostomy tube, incompletely assessed, with decrease in right hydronephrosis. Incompletely assessed small to moderate bilateral pleural effusions. IMPRESSION: 1. No acute displaced fracture. 2. Multilevel degenerative changes of the lumbar spine as detailed. 3. Interval placement of a right percutaneous nephrostomy tube, incompletely assessed, with decrease in right hydronephrosis. 4. Incompletely assessed small to moderate bilateral pleural effusions.
[2024-07-24] MEDS ORDERED: KETOROLAC TROMETH 30 MG/ML 1ML VIAL IV ONE (22:30)
--- NOTE | 2024-07-25 07:50 | DVHDS2 ---
Discharge Summary Date of Admission Jul 20, 2024 at 23:36 Date of Discharge: Jul 24, 2024 Admitting Diagnosis Acute abdominal pain Wounds: Right nephrostomy tube placement CT abdomen pelvis without contrast Labs/Diagnostic Data: Laboratory Results Test 07/23/24 09:51 07/23/24 09:50 07/23/24 04:55 07/22/24 05:22 Prothrombin Time 10.7 sec (9.3-11.8) Prothrombin Time INR 1.01 (0.9-1.15) Urine Opiates Screen Neg (NEGATIVE) Urine Fentanyl Screen Neg (NEGATIVE) Urine Barbiturates Screen Neg (NEGATIVE) Urine Phencyclidine Screen Neg (NEGATIVE) Urine Amphetamines Screen Neg (NEGATIVE) Urine Benzodiazepines Screen Neg (NEGATIVE) Urine Cocaine Screen Neg (NEGATIVE) Urine Cannabinoids Screen Neg (NEGATIVE) Sodium Level 142 mmol/L (136-145) Potassium Level 5.2 mmol/L (3.5-5.1) Chloride Level 116 mmol/L (98-107) Carbon Dioxide Level 14 mmol/L (20-31) Anion Gap 12 (5-15) Blood Urea Nitrogen 47 mg/dL (9-23) Creatinine 2.84 mg/dL (0.700-1.30) Glomerular Filtration Rate Calc 24 mL/min (>90) BUN/Creatinine Ratio 16.5 (10.0-20.0) Serum Glucose 65 mg/dL (74-106) Calcium Level 9.2 mg/dL (8.7-10.4) Phosphorus Level 3.4 mg/dL (2.4-5.1) Test 07/21/24 15:35 07/21/24 04:56 07/20/24 19:40 Urine Color Light-brown (Yellow) Urine Clarity Ex.turbid (Clear) Urine pH 6.5 (5.0-9.0) Urine Specific [place] 1.012 (1.001-1.035) Urine Protein 2+ (Negative) Urine Ketones Negative (Negative) Urine Blood 2+ /uL (Negative) Urine Nitrite Negative (Negative) Urine Bilirubin Negative (Negative) Urine Urobilinogen Normal mg/dL (Negative) Urine Leukocyte Esterase 3+ /uL (Negative) Urine RBC 44 /hpf (0 - 3) Urine WBC Clumps Present /hpf (None Seen) Urine Microscopic WBC 1406 /HPF (0-3) Urine Squamous Epithelial Cells None seen /hpf (<5) Urine Amorphous Crystals Few /hpf (None Seen) Urine Bacteria None seen /hpf (None Seen) Urine Creatinine 61.23 mg/dL (30.0-125.0) Urine Protein/Creatinine Ratio 3.87 Urine Glucose Normal mg/dL (Normal) Urine Total Protein 237.2 mg/dL (1-14) White Blood Count 6.4 10^3/uL (4.4-10.8) Red Blood Count 4.54 10^6/uL (4.5-5.90) Hemoglobin 10.6 g/dL (13.5-17.5) Hematocrit 34.0 % (41.0-53.0) Mean Corpuscular Volume 75.0 fL (80.0-100.0) Mean Corpuscular Hemoglobin 23.4 pg (28.0-32.0) Mean Corpuscular Hemoglobin Concent 31.2 g/dL (32.0-36.0) Red Cell Distribution Width 24.6 % (11.8-14.3) Platelet Count 336 10^3/uL (140-450) Mean Platelet Volume 6.6 fL (6.9-10.8) Neutrophils (%) (Auto) 63.0 % (37.0-80.0) Lymphocytes (%) (Auto) 20.3 % (10.0-50.0) Monocytes (%) (Auto) 11.0 % (0.0-12.0) Eosinophils (%) (Auto) 4.8 % (0.0-7.0) Basophils (%) (Auto) 0.9 % (0.0-2.0) Neutrophils # (Auto) 4.0 10 ^3/uL (1.6-8.6) Lymphocytes # (Auto) 1.3 10 ^3/uL (0.4-5.4) Monocytes # (Auto) 0.7 10 ^3/uL (0-1.3) Eosinophils # (Auto) 0.3 10 ^3/uL (0-0.8) Basophils # (Auto) 0.1 10 ^3/uL (0-0.2) Nucleated Red Blood Cells 0.0 % Hemoglobin A1c 5.7 % A1C (<5.7) Total Bilirubin 0.3 mg/dL (0.2-1.0) Aspartate Amino Transferase (AST) 34 U/L (0-34) Alanine Aminotransferase (ALT) 34 U/L (7-40) Alkaline Phosphatase 105 U/L (46-116) Total Protein 6.5 g/dL (5.7-8.2) Albumin 3.8 g/dL (3.2-4.8) Vitamin D 25-Hydroxy 35.1 ng/mL (30.0-100) Parathyroid Hormone (Intact) 296.0 pg/mL (18.4-80.1) B-Type Natriuretic Peptide > 5000.00 pg/mL (0-100) Lipase 42 U/L (12-53) Other Laboratory Tests 07/23/24 04:55 07/21/24 04:56 Brief Hx & Hospital Course: 63-year-old male with a history of kidney stones congestive heart failure hypotension history of stroke came in for acute abdominal pain. Found to have multiple bladder calculi with a bilateral hydronephrosis urology consult by Dr. Castillo was planning for cystolitholapaxy patient has had right nephrostomy tube placed by wool washer CHF exacerbation treated by cardiology Dr. Bowser ejection fraction 20 percent secondary to chronic meth abuse while awaiting further stabilization and cystoscopy patient left AMA. Consequences complications including possible explained to the patient and he verbalized understanding. General condition satisfactory at the time of leaving AMA per nurse's notes Consults/Reason for consult Urology Nephrology Radiology Operations or Procedures CT abdomen pelvis without contrast Right nephrostomy tube placement Condition at Discharge: Fair Final Diagnosis/Problems List Acute abdominal pain Multiple bladder calculi with bilateral hydronephrosis: Urology consult by Dr. Castillo appreciated. Patient needs cysto litholapaxy, holding aspirin Patient getting left nephrostomy tube today History of kidney stones Indwelling Stuart Acute on chronic CHF exacerbation BNP more than 5000 : Cardiology consult for Dr. Frank appreciated ejection fraction 20 % secondary to chronic meth use, patient claims he stopped using meth. Hypotension History of stroke SULEMAN: Nephrology consult by Dr. Kang appreciated Discharge Disposition: AMA Discharge Instruct/Medications Diet comment: Not applicable Patient left AMA Activity comment: Not applicable Patient left AMA Follow Up/Referral: Not applicable Patient left AMA Medications: Not applicable Patient left AMA 35 (Time taken for discharge summary 35 minutes) Discharge Statement: "Patient was advised to return to the ER or call 911 if any headaches, dizziness, shortness of breath, chest pain, abdominal pain, bleeding, fevers, or worsening of medical condition. Patient was counseled about treatment plan, medications, possible side effects, patientverbalized understanding. All questions were answered to the best of my ability. This discharge took greater then 30 minutes in planning, reviewing documentation, counseling the patient, and discussing with other team members." ASSESSMENT ASSESSMENT Hospital Course Left AMA Assessment Date of Service: Jul 25, 2024 Billing Provider: BINH PEREZ MD Common Visit Codes: 22382-SAG/OBS DISCH DAY >30min BINH PEREZ MD Jul 25, 2024 07:50
[2024-07-25] MEDS ORDERED: GAB100C PO (14:11)
[2024-07-25] MEDS ORDERED: METO1TAB9 PO (14:11)
== END 2024-07-24 23:31 | disposition left against medical advice (07) | DRG 465 ==
LOC: ER 19:26 → EDBD 19:26 → OVERFLOW 23:36 → TELE-CENTR 07-21 01:25
PROVIDERS: ADMIT Family Medicine; ATTEND Family Medicine
PROC: 0T933ZZ Drainage of Right Kidney Pelvis, Percutaneous Approach (ICD-10-PCS; principal; 2024-07-24)
DX: N21.0 Calculus in bladder (principal); N17.1 Acute kidney failure with acute cortical necrosis; I50.23 Acute on chronic systolic (congestive) heart failure; I42.9 Cardiomyopathy, unspecified; I13.0 Hypertensive heart and chronic kidney disease with heart failure and stage 1 through stage 4 chronic kidney disease, or unspecified chronic kidney disease; I95.9 Hypotension, unspecified; N13.2 Hydronephrosis with renal and ureteral calculous obstruction; E83.51 Hypocalcemia; F15.10 Other stimulant abuse, uncomplicated; Z53.29 Procedure and treatment not carried out because of patient's decision for other reasons; N18.9 Chronic kidney disease, unspecified; E87.5 Hyperkalemia; F17.210 Nicotine dependence, cigarettes, uncomplicated; I45.10 Unspecified right bundle-branch block; Z87.442 Personal history of urinary calculi; Z90.49 Acquired absence of other specified parts of digestive tract; Z83.3 Family history of diabetes mellitus; Z79.899 Other long term (current) drug therapy; Z91.148 Patient's other noncompliance with medication regimen for other reason; Z86.73 Personal history of transient ischemic attack (TIA), and cerebral infarction without residual deficits
CPT/HCPCS: 36415; 50432; 72131; 74176; 74425; 76775; 76942; 80048; 80053; 80307; 81001; 82306; 82570; 83036; 83690; 83880; 83970; 84100; 84156; 85025; 85610; 86850; 86900; 86901; 87040; 87086; 87088; 87186; 93005; 93306; 96374; 96375; 99152; G0378; J2250; J2405; Q9967

== ENCOUNTER 2024-07-25 06:38 | Inpatient (IN) | payer MEDICAID ==
[~2024-07-25] VITALS: Ht 172.7 cm; Wt 62.4 kg
--- NOTE | 2024-07-25 07:01 | ED.PDOC ---
History of Present Illness HPI Comments 63 year old male with a HX of HTN, CHF, and CVA was BIBA for the c/c of SOB. Pt states that he was at [facility] yesterday bu ended up signing a AMA form because he was having a "panic attack". Pt now notes that that was a mistake and has retuned due to his SOB. No other associated symptoms, modifiers, recent inju malick or sick contacts present at this time. Time Seen by MD: 06:51 Reviewed Notes: Nurses Notes, Medications, Allergies Allergies: Coded Allergies: NO KNOWN ALLERGIES (Unverified , 07/20/24) Home Meds Unable to Obtain Active Prescriptions or Reported Meds Information Source: Patient Mode of Arrival: EMS Severity: Moderate Timing: Hours Duration: Since onset, Hours Prehospital treatment: None Past Medical History PAST MEDICAL HISTORY: CHF, CVA, HTN, Kidney Stones Surgical History: Cholecystectomy Family History Family History: Family hx of DM Social History Smoker: Cigarettes Alcohol: Occasionally Drugs: Marijuana Lives In: Home Constitutional: denies: chills, diaphoresis, fatigue, fever, malaise, sweats, weakness, others EENTM: denies: blurred vision, double vision, ear bleeding, ear discharge, ear drainage, ear pain, ear ringing, eye pain, eye redness, hearing loss, mouth pain, mouth swelling, nasal discharge, nose bleeding, nose congestion, nose pain, photophobia, tearing, throat pain, throat swelling, voice changes, others Respiratory: denies: cough, hemoptysis, orthopnea, SOB at rest, shortness of breath, SOB with excertion, stridor, wheezing, others Cardiovascular: denies: chest pain, dizzy spells, diaphoresis, Dyspnea on exertion, edema, irregular heart beat, left arm pain, lightheadedness, palpitations, PND, syncope, others Gastrointestinal: denies: abdomen distended, abdominal pain, blood streaked bowels, constipated, diarrhea, dysphagia, difficulty swallowing, hematemesis, melena, nausea, poor appetite, poor fluid intake, rectal bleeding, rectal pain, vomiting, others Genitourinary: denies: burning, dysuria, flank pain, frequency, hematuria, incontinence, penile discharge, penile sore, pain, testicle pain, testicle s welling, urgency, others Neurological: denies: dizziness, fainting, headache, left sided numbness, left sided weakness, numbness, paresthesia, pre-existing deficit, right sided numbness, right sided weakness, seizure, speech problems, tingling, tremors, weakness, others Musculoskeletal: denies: back pain, gout, joint pain, joint swelling, muscle pain, muscle stiffness, neck pain, others Integumetry: denies: bruises, change in color, change in hair/nails, dryness, laceration, lesions, lumps, rash, wounds, others Allergic/Immunocompromised: denies: Difficulty Healing, Frequent Infections, Hives, Itching, others Hematologic/Lymphatic: denies: anemia, blood clots, easy bleeding, easy bruising, swollen glands, others Endocrine: denies: excessive hunger, excessive sweating, excessive thirst, excessive urination, flushing, intolerance to cold, intolerance to heat, unexplained weight gain, unexplained weight loss, others Psychiatric: denies: anxiety, bipolar disorder, depression, hopeless, panic disorder, schizophrenia, sleepless, suicidal, others All Other Systems: Reviewed and Negative Physical Exam General Appearance: No Apparent Distress, Normal, Obese, Other (urostomy bag noted on Right side) HEENT: Normal ENT Inspection, Pharynx Normal, TMs Normal Neck: Full Range of Motion, Non-Tender, Normal, Normal Inspection Respiratory: Chest Non-Tender, Lungs Clear, No Accessory Muscle Use, No Respiratory Distress, Normal Breath Sounds Cardiovascular: No Edema, No JVD, No Murmur, Normal Peripheral Pulses, Regular Rate/Rhythm Breast Exam: Deferred Gastrointestinal: Non Tender, No Pulsatile Mass, Normal Bowel Sounds, Soft Genitalia: Deferred Pelvic: Deferred Rectal: Deferred Extremities: No calf tenderness, Normal capillary refill, Normal inspection, Normal range of motion, Non-tender, No pedal edema Musculoskeletal : Apperance: Normal Neurologic: Alert, No Motor Deficits, Normal Mood Cerebellar Function: Normal Reflexes: Normal Skin: Dry, Normal Color, Warm Lymphatic: No Adenopathy Was a procedure done? Was a procedure done?: No Differential Dx Considerations may include: ACS, CVA, CHF exacerbation, COPD X-Ray, Labs, Meds, VS Vital Signs Date Time Temp Pulse Resp B/P (MAP) Pulse Ox O2 Delivery O2 Flow Rate FiO2 07/25/24 08:15 97.9 72 18 154/93 (113) 98 97.9 07/25/24 08:15 72 18 98 Room Air 07/25/24 06:44 75 07/25/24 06:41 98.4 84 16 165/91 (115) 98 98.4 Lab Test 07/25/24 08:08 07/25/24 07:08 Range/Units Troponin I High Sensitivity 65 *H 58 *H </=54 ng/L White Blood Count 6.3 4.4-10.8 10^3/uL Red Blood Count 4.31 L 4.5-5.90 10^6/uL Hemoglobin 10.1 L 13.5-17.5 g/dL Hematocrit 31.8 L 41.0-53.0 % Mean Corpuscular Volume 73.8 L 80.0-100.0 fL Mean Corpuscular Hemoglobin 23.5 L 28.0-32.0 pg Mean Corpuscular Hemoglobin Concent 31.8 L 32.0-36.0 g/dL Red Cell Distribution Width 25.3 H 11.8-14.3 % Platelet Count 335 140-450 10^3/uL Mean Platelet Volume 6.4 L 6.9-10.8 fL Neutrophils (%) (Auto) 75.5 37.0-80.0 % Lymphocytes (%) (Auto) 14.8 10.0-50.0 % Monocytes (%) (Auto) 8.2 0.0-12.0 % Eosinophils (%) (Auto) 0.8 0.0-7.0 % Basophils (%) (Auto) 0.7 0.0-2.0 % Neutrophils # (Auto) 4.8 1.6-8.6 10 ^3/uL Lymphocytes # (Auto) 0.9 0.4-5.4 10 ^3/uL Monocytes # (Auto) 0.5 0-1.3 10 ^3/uL Eosinophils # (Auto) 0.1 0-0.8 10 ^3/uL Basophils # (Auto) 0 0-0.2 10 ^3/uL Nucleated Red Blood Cells 0.3 % Platelet Estimate Adequate Hypochromasia (manual) Moderate Poikilocytosis (manual) Slight Anisocytosis (manual) Moderate Microcytosis Moderate Target Cells Few Ovalocytes Few Schistocytes Few Sodium Level 140 136-145 mmol/L Potassium Level 4.8 3.5-5.1 mmol/L Chloride Level 111 H 98-107 mmol/L Carbon Dioxide Level 19 L 20-31 mmol/L Anion Gap 10 5-15 Blood Urea Nitrogen 48 H 9-23 mg/dL Creatinine 2.87 H 0.700-1.30 mg/dL Glomerular Filtration Rate Calc 24 >90 mL/min BUN/Creatinine Ratio 16.7 10.0-20.0 Serum Glucose 121 H 74-106 mg/dL Calcium Level 9.6 8.7-10.4 mg/dL PATIENT: MARTHA BRICEÑO ACCT: [id number] UNIT: [id number] : 1960 LOC: ER ROOM / BED: / AGE / SEX: 63 / M ADM STATUS: REG ER SERVICE ORDERING PHYSICIAN: JAKE DIAS MD PROCEDURE(s): CXRP - CHEST PORTABLE REASON: sob ORDER NUMBER(s): [id number], ACCESSION NUMBER(s): [id number] CHEST RADIOGRAPH Indication: sob Technique: Single frontal view of the chest was obtained COMPARISON: None FINDINGS: Lines and Tubes: None Lungs: Mild increased interstitial prominence Pleura: No effusion. No pneumothorax. Cardiomediastinal contours: Cardiomegaly Bones: Unremarkable IMPRESSION: Mild pulmonary vascular congestion or viral pneumonia. Time of 1ST Reevaluation: 07:22 Reevaluation 1ST: Unchanged Patient Education/Counseling: Diagnosis, Treatment Family Education/Counseling: No Family Present SEPSIS Sepsis Screen Orders/Vitals/Labs Physician Orders Chest Portable (07/25/24 06:59) Troponin-I Hs (07/25/24 09:59) Vital Signs Date Time Temp Pulse Resp B/P (MAP) Pulse Ox O2 Delivery O2 Flow Rate FiO2 07/25/24 08:15 97.9 72 18 154/93 (113) 98 97.9 07/25/24 08:15 72 18 98 Room Air 07/25/24 06:44 75 07/25/24 06:41 98.4 84 16 165/91 (115) 98 98.4 Laboratory Tests Test 07/25/24 07:08 White Blood Count 6.3 10^3/uL (4.4-10.8) Departure 1 Departure Time of Disposition: 09:21 (Patient with worsening shortness of breath and elevated troponin.) Impression: Primary Impression: Shortness of breath Additional Impression: Elevated troponin Disposition: 09 ADMITTED INPATIENT Admit to: Med Surg Condition: Serious e-Prescriptions Unable to Obtain Active Prescriptions or Reported Meds Critical Care Note Critical Care Time?: Yes Critical care comment: Shortness of breath. Elevated troponin Authorized and Performed by: Jake Dias MD Total critical care time: Approximately 37 minutes Due to a high probability of clinically significant, life threatening deterioration, the patient required my highest level of preparedness to intervene emergently and I personally spent this critical care time directly and personally managing the patient. This critical care time included obtaining a history; examining the patient; pulse oximetry; ordering and review of studies; arranging urgent treatment with development of a management plan; evaluation of patient's response to treatment; frequent reassessment; and, discussions with other providers. This critical care time was performed to assess and manage the high probability of imminent, life-threatening deterioration that could result in multi-organ failure. It was exclusive of separately billable procedures and treating other patients and teaching time. Please see my other sections and the rest of the note for further information on patient assessment and treatment. Stability Stability form required: No Heart Score Heart Score: Heart Score Response (Comments) Value History Slightly Suspicious 0 EKG Normal 0 Age 45-64 1 Risk Factors 1 or 2 risk factors 1 Troponin >3 x's Normal limit 2 Total 4 I personally scribed for JAKE DIAS MD ([email or web address]) on 07/25/24 at 07:01. Electronically submitted by Morgan Cortez ([email or web address]). I personally scribed for JAKE DIAS MD ([email or web address]) on 07/25/24 at 08:35. Electronically submitted by Morgan Cortez ([email or web address]). JAKE DIAS MD Jul 25, 2024 07:01
--- NOTE | 2024-07-25 07:05 | ECG ---
[facility] Test Date: 2024-07-25 Test Time: 06:44:46 Pat Name: MARTHA BRICEÑO Department: ED Room: [address] [place] [address] Gender: M Stripper Latex: NIKOLAS : 1960 Requested By: JAKE KHAN Order Number: [id number] Reading MD: Rojelio Frank Measurements Intervals [place] Rate: 75 P: 66 DC: 171 QRS: -120 QRSD: 152 T: 75 QT: 440 QTc: 492 Interpretive Statements Sinus rhythm Right bundle branch block Electronically Signed On 07-25-2024 17:47:02 PDT by Rojelio Frank Please click the below link to view image of tracing.
[2024-07-25 07:15] LABS: Basophils # (auto) 0 10 ^3/uL (0-0.2); Basophils % (auto) 0.7 % (0.0-2.0); Eosinophils # (auto) 0.1 10 ^3/uL (0-0.8); Eosinophils % (auto) 0.8 % (0.0-7.0); Hematocrit 31.8 % (41.0-53.0); Hemoglobin 10.1 g/dL (13.5-17.5); Lymphocytes # (auto) 0.9 10 ^3/uL (0.4-5.4); Lymphocytes % (auto) 14.8 % (10.0-50.0); Mean Corpuscular Hemoglobin 23.5 pg (28.0-32.0); Mean Corpuscular Hgb Conc. 31.8 g/dL (32.0-36.0); Mean Corpuscular Volume 73.8 fL (80.0-100.0); Monocytes # (auto) 0.5 10 ^3/uL (0-1.3); Monocytes % (auto) 8.2 % (0.0-12.0); Neutrophils # (auto) 4.8 10 ^3/uL (1.6-8.6); Neutrophils % (auto) 75.5 % (37.0-80.0); Nucleated Red Blood Cells % 0.3 %; Platelet Count (auto) 335 10^3/uL (140-450); Red Blood Cells 4.31 10^6/uL (4.5-5.90); Red Cell Distribution Width 25.3 % (11.8-14.3); White Blood Cell 6.3 10^3/uL (4.4-10.8)
[2024-07-25 07:30] LABS: Potassium 4.8 mmol/L (3.5-5.1); Sodium 140 mmol/L (136-145)
[2024-07-25 07:31] LABS: Anion Gap 10 (5-15)
[2024-07-25 07:32] LABS: Calcium 9.6 mg/dL (8.7-10.4)
[2024-07-25 07:36] LABS: Carbon Dioxide 19 mmol/L (20-31); Chloride 111 mmol/L (98-107)
[2024-07-25 07:37] LABS: BUN/Creatinine Ratio 16.7 (10.0-20.0); Blood Urea Nitrogen 48 mg/dL (9-23); Glucose 121 mg/dL (74-106)
[2024-07-25 08:09] LABS: Anisocytosis Moderate; Platelet Estimate Adequate
[2024-07-25 08:10] LABS: Hypochromia Moderate; Ovalocytes FEW
[2024-07-25 08:11] LABS: Target Cell FEW
--- NOTE | 2024-07-25 08:26 | DVH ---
CHEST RADIOGRAPH Indication: sob Technique: Single frontal view of the chest was obtained COMPARISON: None FINDINGS: Lines and Tubes: None Lungs: Mild increased interstitial prominence Pleura: No effusion. No pneumothorax. Cardiomediastinal contours: Cardiomegaly Bones: Unremarkable IMPRESSION: Mild pulmonary vascular congestion or viral pneumonia.
[2024-07-25] MEDS ORDERED: ONDANSETRON HCL 4 MG/2 ML VIAL IV PRN (11:00)
[2024-07-25] MEDS ORDERED: DOCUSATE SOD 100 MG CAP PO PRN (11:00)
--- NOTE | 2024-07-25 11:07 | DVHHP2 ---
History of Present Illness Reason for Visit: flank pain History of Present Illness Jose Luis Murrell is a 63-year-old male with past medical history of hypertension, CHF, bladder stones, and methamphetamine use who was admitted to the hospital for SULEMAN, left AMA yesterday, and came back this morning. The patient has bilateral hydronephrosis with a nephrostomy tube placed yesterday. Patient will be admitted, and I will reconsult nephrology and urology. Troponin is elevated, likely due to kidney impairment. Cardiovascular: CHF, HTN Renal/: Acute renal failure, Other (bladder stones) Past Surgical History: Cholecystectomy Smoke: <1 pack per day ALCOHOL: rare Drugs: Other (quite methamphetamines 1 week ago) Lives: Homeless (States [facility] put him in a facility) Domestic Violence: Neg Review of Systems Constitutional: Yes: Weakness, Malaise; No: Fever, Chills, Sweats, Other Eyes: No: Pain, Vision change, Conjunctivae inflammation, Eyelid inflammation, Other, Redness ENT: No: Ear pain, Ear discharge, Nose pain, Nose discharge, Nose congestion, Mouth pain, Mouth swelling, Throat pain, Throat swelling, Other Respiratory: No: Cough, Dry, Shortness of breath, SOB with excertion, Wheezing, Hemoptysis, Pleuritic Pain, Sputum, Wheezing, Other Cardiovascular: Other (hypertension); No: Chest Pain, Palpitations, Orthopnea, Paroxysmal Noc. Dyspnea, Edema, Lt Headedness Gastrointestinal: Abdominal Pain; No: Nausea, Vomiting, Diarrhea, Constipation, Melena, Hematochezia, Other Genitourinary: No Dysuria, No Frequency, No Incontinence, No Hematuria, No Retention, No Other Musculoskeletal: back pain (flank pain); No: other, neck pain, shoulder pain, arm pain, hand pain, leg pain, foot pain Skin: No: Rash, Lesions, Jaundice, Bruising, Other Neurological: No: Weakness, Numbness, Incoordination, Change in speech, Confusion, Seizures, Other Allergies: Coded Allergies: NO KNOWN ALLERGIES (Unverified , 07/20/24) Exam Vital Signs Vital Signs Date Time Temp Pulse Resp B/P (MAP) Pulse Ox O2 Delivery O2 Flow Rate FiO2 07/25/24 10:40 98.1 71 18 154/88 (110) 98 98.1 07/25/24 08:15 Room Air General Appearance: Alert, Oriented X3, Cooperative, mild distress HEENT: Atraumatic, PERRLA Respiratory: Clear to auscultation, Normal air movement Cardiovascular: Regular rate, Normal S1, Normal S2, Other (Hypertension) Abdominal: Normal bowel sounds, Soft, No tenderness, Other (right nephrostomy tube in place, hematuria) Extremities: No clubbing, No cyanosis, Normal pulses Skin: No rashes, No breakdown, No significant lesion Neuro: Normal speech Psych/Mental Status: Mental status NL Labs/Xrays Labs Test 07/25/24 10:35 07/25/24 07:08 Range/Units White Blood Count 6.3 4.4-10.8 10^3/uL Red Blood Count 4.31 L 4.5-5.90 10^6/uL Hemoglobin 10.1 L 13.5-17.5 g/dL Hematocrit 31.8 L 41.0-53.0 % Mean Corpuscular Volume 73.8 L 80.0-100.0 fL Mean Corpuscular Hemoglobin 23.5 L 28.0-32.0 pg Mean Corpuscular Hemoglobin Concent 31.8 L 32.0-36.0 g/dL Red Cell Distribution Width 25.3 H 11.8-14.3 % Platelet Count 335 140-450 10^3/uL Mean Platelet Volume 6.4 L 6.9-10.8 fL Neutrophils (%) (Auto) 75.5 37.0-80.0 % Lymphocytes (%) (Auto) 14.8 10.0-50.0 % Monocytes (%) (Auto) 8.2 0.0-12.0 % Eosinophils (%) (Auto) 0.8 0.0-7.0 % Basophils (%) (Auto) 0.7 0.0-2.0 % Neutrophils # (Auto) 4.8 1.6-8.6 10 ^3/uL Lymphocytes # (Auto) 0.9 0.4-5.4 10 ^3/uL Monocytes # (Auto) 0.5 0-1.3 10 ^3/uL Eosinophils # (Auto) 0.1 0-0.8 10 ^3/uL Basophils # (Auto) 0 0-0.2 10 ^3/uL Nucleated Red Blood Cells 0.3 % Platelet Estimate Adequate Hypochromasia (manual) Moderate Poikilocytosis (manual) Slight Anisocytosis (manual) Moderate Microcytosis Moderate Target Cells Few Ovalocytes Few Schistocytes Few Sodium Level 140 136-145 mmol/L Potassium Level 4.8 3.5-5.1 mmol/L Chloride Level 111 H 98-107 mmol/L Carbon Dioxide Level 19 L 20-31 mmol/L Anion Gap 10 5-15 Blood Urea Nitrogen 48 H 9-23 mg/dL Creatinine 2.87 H 0.700-1.30 mg/dL Glomerular Filtration Rate Calc 24 >90 mL/min BUN/Creatinine Ratio 16.7 10.0-20.0 Serum Glucose 121 H 74-106 mg/dL Calcium Level 9.6 8.7-10.4 mg/dL CHEST RADIOGRAPH FINDINGS: Lines and Tubes: None Lungs: Mild increased interstitial prominence Pleura: No effusion. No pneumothorax. Cardiomediastinal contours: Cardiomegaly Bones: Unremarkable IMPRESSION: Mild pulmonary vascular congestion or viral pneumonia. Assessment/Plan Assessment/Plan Assessment: SULEMAN (acute kidney injury), Hydronephrosis, Bladder stones, Uncontrolled hypertension, Elevated troponin, Plan: Admit to Med-Surg, Nephrology consult, Urology consult, Consider cardiology consult, IV antibiotics, IV hydration, Home medications reconciled, Plan discussed with: Patient My Orders Orders - YOHANNES ESTRELLA Procedure Category Date Status Time Admit ADMIT 07/25/24 Verified 10:55 Code Status CODE 07/25/24 Verified 10:55 Hydrocodone-Acet PHA 07/25/24 Verified 5/325mg Tab ([place] 11:00 Ondansetron Hcl PHA 07/25/24 Verified ([place]) 11:00 Docusate Sodium PHA 07/25/24 Verified Capsule ([place] 11:00 Complete Blood Count LAB 07/26/24 Verified 04:00 Comprehensive LAB 07/26/24 Verified Metabolic Panel 04:00 Cardiac DIET 07/25/24 Verified Diet-2gna,Lofat,Lochol Lunch Condition: Serious ALETHA 07/25/24 Verified 10:55 Acetaminophen Tablet PHA 07/25/24 Verified (Tylenol Tablet) 11:00 * Urology Consult CONS 07/25/24 Verified 10:55 *[facility] CONS 07/25/24 Verified -[place] 10:55 Date of Service: Jul 25, 2024 Billing Provider: YOHANNES ESTRELLA Common Visit Codes: [id number] INP/OBS CARE (HIGH) YOHANNES ESTRELLA [employer] Jul 25, 2024 11:07
[2024-07-25 13:06] VITALS: BP 155/96; PULSE 74; RESP 16; RESP 18; TEMP 98; O2SAT 97
[2024-07-25 13:42] VITALS: BP 155/96; PULSE 74; RESP 16; TEMP 98; O2SAT 97
[2024-07-25] MEDS ORDERED: METO1TAB9 PO (14:11)
[2024-07-25] MEDS ORDERED: GAB100C PO (14:11)
[2024-07-25] MEDS: HYDROcodone-ACET 5/325MG TAB PO PRN (15:11)
[2024-07-25 17:08] VITALS: BP 141/97; PULSE 74; RESP 18; TEMP 98.5; O2SAT 97
[2024-07-25] MEDS: METOPROLOL SUCCINATE XL 50 MG TAB PO ONE (17:28)
[2024-07-25] MEDS: SODIUM BICARB 50mEq/50ml Vial 75 ML in SOD CHL 0.45% 1,000 ML IV SCH (18:15)
--- NOTE | 2024-07-25 19:20 | DVHINCON2 ---
Date of service: Jul 25, 2024 History of Present Illness 63 years old male with past medical history of hypertension, Congestive heart failure, bladder stones, methamphetamine abuse, recent use one week ago status post nephrostomy tube for obstructive uropathy presented after signing out against medical advice has pain meds seeking behavior Past Medical History As per [facility] Past Surgical History Cholecystectomy Allergies: Coded Allergies: NO KNOWN ALLERGIES (Unverified , 07/20/24) Home Meds Reported Medications Folic Acid (Folic Acid) 1 Mg Tab, 1 TAB PO DAILY for 30 Days, #30 07/26/24 Tamsulosin Hcl (Tamsulosin Hcl) 0.4 Mg Cap, 1 PO DAILY for 30 Days, #30 07/26/24 Finasteride (Finasteride) 5 Mg Tab, 1 TAB PO DAILY for 30 Days, #30 07/26/24 Sodium Bicarbonate (Sodium Bicarbonate) 650 Mg Tab, 1 TAB PO BID for 30 Days, #60 07/26/24 Furosemide (Furosemide) 40 Mg Tab, 1 TAB PO DAILY for 30 Days, #30 07/26/24 Carvedilol (Carvedilol) 12.5 Mg Tab, 1 TAB PO BID for 30 Days, #60 07/26/24 Nifedipine (Nifedipine Er) 90 Mg Tab, 1 TAB PO DAILY for 30 Days, #30 07/26/24 Doxycycline Hyclate (Doxycycline Hyclate) 100 Mg Cap, 1 CAP PO BID for 14 Days, #28 07/26/24 Metoprolol Succinate (Metoprolol Succinate Er) 100 Mg Tab, 1 TAB PO DAILY 07/25/24 Gabapentin (Gabapentin) 100 Mg Cap, 1 CAP PO TID 07/25/24 Current Medications Current Medications Medications (Trade) Dose Ordered Sig/Yves Route PRN Reason Start Time Stop Time Status Last Admin Metoprolol Succinate (Toprol Xl) 100 mg DAILY PO 07/26/24 10:00 07/26/24 08:32 Gabapentin (Neurontin Capsule) 100 mg TID PO 07/25/24 22:00 07/25/24 21:41 Family History: Diabetes mellitus G8 MOTHER, Review of Systems Per HPI H&P Exam Vital Signs/I&O Vital Sign Date Time Temp Pulse Resp B/P (MAP) Pulse Ox O2 Delivery O2 Flow Rate FiO2 07/26/24 12:52 97.0 71 18 133/81 (98) 98 97.0 07/26/24 08:00 Room Air* 0 21 Intake and Output 07/25/24 07/26/24 19:00 07:00 Intake Total 310 ml 180 ml Output Total 450 ml 800 ml Balance -140 ml -620 ml Intake Oral 310 ml 180 ml Output Urine Total 300 ml 800 ml Other 150 ml # Bowel Movements 3 Physical Exam General-not in any distress HEENT-normocephalic, no icterus, no pallor, neck supple Respiratory-fair air entry bilateral, no rhonchi, no wheeze [id number] heard, no murmurs appreciated Abdominal-soft, nontender, nondistended Musculoskeletal-no pedal edema, no calf tenderness Genitourinary-deferred Neuro-awake alert oriented x3, Psychiatric-not agitated, cooperative, Labs/Diagnostic Data Labs/Diagnostic Data Laboratory Tests Test 07/26/24 04:49 07/25/24 10:35 07/25/24 08:08 07/25/24 07:08 Range/Units White Blood Count 5.9 6.3 4.4-10.8 10^3/uL Red Blood Count 4.43 L 4.31 L 4.5-5.90 10^6/uL Hemoglobin 10.6 L 10.1 L 13.5-17.5 g/dL Hematocrit 33.1 L 31.8 L 41.0-53.0 % Mean Corpuscular Volume 74.6 L 73.8 L 80.0-100.0 fL Mean Corpuscular Hemoglobin 23.9 L 23.5 L 28.0-32.0 pg Mean Corpuscular Hemoglobin Concent 32.1 31.8 L 32.0-36.0 g/dL Red Cell Distribution Width 24.4 H 25.3 H 11.8-14.3 % Platelet Count 319 335 140-450 10^3/uL Mean Platelet Volume 6.7 L 6.4 L 6.9-10.8 fL Neutrophils (%) (Auto) 65.7 75.5 37.0-80.0 % Lymphocytes (%) (Auto) 23.8 14.8 10.0-50.0 % Monocytes (%) (Auto) 7.4 8.2 0.0-12.0 % Eosinophils (%) (Auto) 2.3 0.8 0.0-7.0 % Basophils (%) (Auto) 0.8 0.7 0.0-2.0 % Neutrophils # (Auto) 3.9 4.8 1.6-8.6 10 ^3/uL Lymphocytes # (Auto) 1.4 0.9 0.4-5.4 10 ^3/uL Monocytes # (Auto) 0.4 0.5 0-1.3 10 ^3/uL Eosinophils # (Auto) 0.1 0.1 0-0.8 10 ^3/uL Basophils # (Auto) 0 0 0-0.2 10 ^3/uL Nucleated Red Blood Cells 0.1 0.3 % Platelet Estimate Adequate Adequate Hypochromasia (manual) Moderate Moderate Poikilocytosis (manual) Slight Slight Anisocytosis (manual) Moderate Moderate Microcytosis Moderate Moderate Target Cells Few Few Ovalocytes Few Few Schistocytes Few Few Sodium Level 141 140 136-145 mmol/L Potassium Level 5.3 H 4.8 3.5-5.1 mmol/L Chloride Level 109 H 111 H 98-107 mmol/L Carbon Dioxide Level 21 19 L 20-31 mmol/L Anion Gap 11 10 5-15 Blood Urea Nitrogen 51 H 48 H 9-23 mg/dL Creatinine 2.87 H 2.87 H 0.700-1.30 mg/dL Glomerular Filtration Rate Calc 24 24 >90 mL/min BUN/Creatinine Ratio 17.8 16.7 10.0-20.0 Serum Glucose 80 121 H 74-106 mg/dL Calcium Level 9.5 9.6 8.7-10.4 mg/dL Total Bilirubin 0.2 0.2-1.0 mg/dL Aspartate Amino Transferase (AST) 43 H <34 U/L Alanine Aminotransferase (ALT) 49 H 7-40 U/L Alkaline Phosphatase 130 H 46-116 U/L Total Protein 6.7 5.7-8.2 g/dL Albumin 4.0 3.2-4.8 g/dL Troponin I High Sensitivity 67 *H 65 *H 58 *H </=54 ng/L Assessment Acute kidney injury secondary to obstructive kidney disease. Chronic kidney disease unspecified baseline unknown Bilateral renal stones Bilateral hydronephrosis Chronic urinary retention with Stuart catheter Hypocalcemia hyperkalemia [id number]+[id number] bicarb Avoid hypotension Continue to drain and monitoring output from Stuart catheter s/p PCNT urology Plan discussed with: Patient HOWARD DELAROSA MD Jul 25, 2024 19:20
[2024-07-25] MEDS: GABAPENTIN 100 MG CAP PO SCH (21:41)
[2024-07-26] VITALS (8 sets, daily range): BP systolic 133–167; BP diastolic 81–98; PULSE 65–80; RESP 18–19; TEMP 97–98.9; O2SAT 97–100
[2024-07-26] MEDS: MORPHINE SULFATE INJ 2 MG/ml SYRG IV ONE (00:40)
[2024-07-26 07:12] LABS: Basophils # (auto) 0 10 ^3/uL (0-0.2); Basophils % (auto) 0.8 % (0.0-2.0); Eosinophils # (auto) 0.1 10 ^3/uL (0-0.8); Eosinophils % (auto) 2.3 % (0.0-7.0); Hematocrit 33.1 % (41.0-53.0); Hemoglobin 10.6 g/dL (13.5-17.5); Lymphocytes # (auto) 1.4 10 ^3/uL (0.4-5.4); Lymphocytes % (auto) 23.8 % (10.0-50.0); Mean Corpuscular Hemoglobin 23.9 pg (28.0-32.0); Mean Corpuscular Hgb Conc. 32.1 g/dL (32.0-36.0); Mean Corpuscular Volume 74.6 fL (80.0-100.0); Monocytes # (auto) 0.4 10 ^3/uL (0-1.3); Monocytes % (auto) 7.4 % (0.0-12.0); Neutrophils # (auto) 3.9 10 ^3/uL (1.6-8.6); Neutrophils % (auto) 65.7 % (37.0-80.0); Nucleated Red Blood Cells % 0.1 %; Platelet Count (auto) 319 10^3/uL (140-450); Red Blood Cells 4.43 10^6/uL (4.5-5.90); Red Cell Distribution Width 24.4 % (11.8-14.3); White Blood Cell 5.9 10^3/uL (4.4-10.8)
[2024-07-26 07:38] LABS: Anion Gap 11 (5-15); BUN/Creatinine Ratio 17.8 (10.0-20.0); Calcium 9.5 mg/dL (8.7-10.4); Carbon Dioxide 21 mmol/L (20-31); Glucose 80 mg/dL (74-106); Sodium 141 mmol/L (136-145); Total Protein 6.7 g/dL (5.7-8.2)
[2024-07-26 07:41] LABS: Alanine Aminotransferase 49 U/L (7-40); Alkaline Phosphatase 130 U/L (46-116); Aspartate Aminotransferase 43 U/L (<34); Bilirubin, Total 0.2 mg/dL (0.2-1.0); Blood Urea Nitrogen 51 mg/dL (9-23); Chloride 109 mmol/L (98-107); Potassium 5.3 mmol/L (3.5-5.1)
[2024-07-26 08:10] LABS: Ovalocytes FEW
[2024-07-26 08:11] LABS: Anisocytosis Moderate; Hypochromia Moderate; Platelet Estimate Adequate; Target Cell FEW
[2024-07-26] MEDS: METOPROLOL SUCCINATE XL 50 MG TAB PO SCH (08:32)
--- NOTE | 2024-07-26 15:15 | DVHINCON2 ---
Date of service: Jul 26, 2024 Referring Physician Hospitalist Reason for Consultation Bladder stones History of Present Illness 63-year-old male with past medical history of hypertension, CHF, bladder stones, and methamphetamine use who was admitted to the hospital for SULEMAN, left AMA yesterday, and came back this morning. The patient has bilateral hydronephrosis with right nephrostomy tube placed on 07/24/24. Patient is admitted, and urology was reconsulted. Troponin is elevated, likely due to kidney impairment. Patient has bladder stones. Past Medical History Cardiovascular: CHF, HTN Renal/: Acute renal failure, Other (bladder stones) Past Surgical History Cholecystectomy Right percutaneous nephrostomy tube Family History: Diabetes mellitus G8 MOTHER, Allergies: Coded Allergies: NO KNOWN ALLERGIES (Unverified , 07/20/24) Home Meds Reported Medications Metoprolol Succinate (Metoprolol Succinate Er) 100 Mg Tab, 1 TAB PO DAILY 07/25/24 Gabapentin (Gabapentin) 100 Mg Cap, 1 CAP PO TID 07/25/24 Current Medications Current Medications Medications (Trade) Dose Ordered Sig/Yves Route PRN Reason Start Time Stop Time Status Last Admin Metoprolol Succinate (Toprol Xl) 100 mg DAILY PO 07/26/24 10:00 07/26/24 08:32 Gabapentin (Neurontin Capsule) 100 mg TID PO 07/25/24 22:00 07/25/24 21:41 Sodium Bicarbonate 75 ml/ Sodium Chloride 1,075 ml @ 100 mls/hr [id number] IV 07/25/24 17:00 07/26/24 13:58 DC 07/26/24 08:31 Review of Systems Constitutional: Yes: Weakness, Malaise; No: Fever, Chills, Sweats, Other Eyes: No: Pain, Vision change, Conjunctivae inflammation, Eyelid inflammation, Other, Redness ENT: No: Ear pain, Ear discharge, Nose pain, Nose discharge, Nose congestion, Mouth pain, Mouth swelling, Throat pain, Throat swelling, Other Respiratory: No: Cough, Dry, Shortness of breath, SOB with excertion, Wheezing, Hemoptysis, Pleuritic Pain, Sputum, Wheezing, Other Cardiovascular: Other (hypertension); No: Chest Pain, Palpitations, Orthopnea, Paroxysmal Noc. Dyspnea, Edema, Lt Headedness Gastrointestinal: Abdominal Pain; No: Nausea, Vomiting, Diarrhea, Constipation, Melena, Hematochezia, Other Genitourinary: No Dysuria, No Frequency, No Incontinence, No Hematuria, No Retention, No Other Musculoskeletal: back pain (flank pain); No: other, neck pain, shoulder pain, arm pain, hand pain, leg pain, foot pain Skin: No: Rash, Lesions, Jaundice, Bruising, Other Neurological: No: Weakness, Numbness, Incoordination, Change in speech, Confusion, Seizures, Other Allergies: Coded Allergies: NO KNOWN ALLERGIES (Unverified , 07/20/24) Vital Signs Vital Signs Date Time Temp Pulse Resp B/P (MAP) Pulse Ox O2 Delivery O2 Flow Rate FiO2 07/26/24 12:52 97.0 71 18 133/81 (98) 98 97.0 07/26/24 08:00 Room Air* 0 21 Physical Exam Vital Signs Date Time Temp Pulse Resp B/P (MAP) Pulse Ox O2 Delivery O2 Flow Rate FiO2 07/25/24 10:40 98.1 71 18 154/88 (110) 98 98.1 07/25/24 08:15 Room Air General Appearance: Alert, Oriented X3, Cooperative, mild distress HEENT: Atraumatic, PERRLA Respiratory: Clear to auscultation, Normal air movement Cardiovascular: Regular rate, Normal S1, Normal S2, Other (Hypertension) Abdominal: Normal bowel sounds, Soft, No tenderness, Other (right nephrostomy tube in place, hematuria) : Stuart catheter in place Extremities: No clubbing, No cyanosis, Normal pulses Skin: No rashes, No breakdown, No significant lesion Neuro: Normal speech Psych/Mental Status: Mental status NL Labs/Diagnostic Data Labs Test 07/26/24 04:49 07/25/24 10:35 Range/Units White Blood Count 5.9 4.4-10.8 10^3/uL Red Blood Count 4.43 L 4.5-5.90 10^6/uL Hemoglobin 10.6 L 13.5-17.5 g/dL Hematocrit 33.1 L 41.0-53.0 % Mean Corpuscular Volume 74.6 L 80.0-100.0 fL Mean Corpuscular Hemoglobin 23.9 L 28.0-32.0 pg Mean Corpuscular Hemoglobin Concent 32.1 32.0-36.0 g/dL Red Cell Distribution Width 24.4 H 11.8-14.3 % Platelet Count 319 140-450 10^3/uL Mean Platelet Volume 6.7 L 6.9-10.8 fL Neutrophils (%) (Auto) 65.7 37.0-80.0 % Lymphocytes (%) (Auto) 23.8 10.0-50.0 % Monocytes (%) (Auto) 7.4 0.0-12.0 % Eosinophils (%) (Auto) 2.3 0.0-7.0 % Basophils (%) (Auto) 0.8 0.0-2.0 % Neutrophils # (Auto) 3.9 1.6-8.6 10 ^3/uL Lymphocytes # (Auto) 1.4 0.4-5.4 10 ^3/uL Monocytes # (Auto) 0.4 0-1.3 10 ^3/uL Eosinophils # (Auto) 0.1 0-0.8 10 ^3/uL Basophils # (Auto) 0 0-0.2 10 ^3/uL Nucleated Red Blood Cells 0.1 % Platelet Estimate Adequate Hypochromasia (manual) Moderate Poikilocytosis (manual) Slight Anisocytosis (manual) Moderate Microcytosis Moderate Target Cells Few Ovalocytes Few Schistocytes Few Sodium Level 141 136-145 mmol/L Potassium Level 5.3 H 3.5-5.1 mmol/L Chloride Level 109 H 98-107 mmol/L Carbon Dioxide Level 21 20-31 mmol/L Anion Gap 11 5-15 Blood Urea Nitrogen 51 H 9-23 mg/dL Creatinine 2.87 H 0.700-1.30 mg/dL Glomerular Filtration Rate Calc 24 >90 mL/min BUN/Creatinine Ratio 17.8 10.0-20.0 Serum Glucose 80 74-106 mg/dL Calcium Level 9.5 8.7-10.4 mg/dL Total Bilirubin 0.2 0.2-1.0 mg/dL Aspartate Amino Transferase (AST) 43 H <34 U/L Alanine Aminotransferase (ALT) 49 H 7-40 U/L Alkaline Phosphatase 130 H 46-116 U/L Total Protein 6.7 5.7-8.2 g/dL Albumin 4.0 3.2-4.8 g/dL Troponin I High Sensitivity 67 *H </=54 ng/L Assessment Bilateral hydronephrosis Right percutaneous nephrostomy tube in-situ Multiple bladder calculi Indwelling Stuart catheter Plan/Recommendation Shock pulse cysto litholapaxy tomorrow as inpatient NPO after midnight Plan discussed with: Patient, Other JANA OSMAN MD Jul 26, 2024 15:15
--- NOTE | 2024-07-26 16:04 | DVHPN2 ---
Subjective feeling sob Reviewed: H&P, Labs Changes from previous H/P or p: No Changes Eyes: No Pain, No Vision change, No Conjunctivae inflammation, No Eyelid inflammation, No Other, No Redness ENT: No Ear pain, No Ear discharge, No Nose pain, No Nose discharge, No Nose congestion, No Mouth pain, No Mouth swelling, No Throat pain, No Throat swelling, No Other Cardiovascular: No Chest Pain, No Palpitations, No Orthopnea, No Paroxysmal Noc. Dyspnea, No Edema, No Lt Headedness; Other (hypertension) Respiratory: No Cough, No Dry, No Shortness of breath, No SOB with excertion, No Wheezing, No Hemoptysis, No Pleuritic Pain, No Sputum, No Other Gastrointestinal: No Nausea, No Vomiting; Abdominal Pain; No Diarrhea, No Constipation, No Melena, No Hematochezia, No Other Genitourinary: No Dysuria, No Frequency, No Incontinence, No Hematuria, No Retention, No Other Musculoskeletal: No other, No neck pain, No shoulder pain, No arm pain; back pain (flank pain); No hand pain, No leg pain, No foot pain Skin: No Rash, No Lesions, No Jaundice, No Bruising, No Other Objective Vitals Vital Signs Date Time Temp Pulse Resp B/P (MAP) Pulse Ox O2 Delivery O2 Flow Rate FiO2 07/26/24 12:52 97.0 71 18 133/81 (98) 98 97.0 07/26/24 08:00 Room Air* 0 21 Intake/Output Intake and Output 07/26/24 07:00 Intake Total 490 ml Output Total 1250 ml Balance -760 ml Intake Oral 490 ml Output Urine Total 1100 ml Other 150 ml # Bowel Movements 3 HEENT: Atraumatic Lungs: Clear to auscultation Cardiovascular: Regular rate, Normal S1 Abdomen: Normal bowel sounds Medications Current Medications Medications Dose Ordered Sig/Yves Route Start Time Stop Time Status Last Admin Dose Admin Acetaminophen/ Hydrocodone Bitart 1 tab Q4HP PRN PO 07/25/24 11:00 07/26/24 05:45 1 TAB Ondansetron HCl 4 mg Q4HP PRN IV 07/25/24 11:00 Docusate Sodium 100 mg BIDPRN PRN PO 07/25/24 11:00 Acetaminophen 650 mg Q6HP PRN PO 07/25/24 11:00 Metoprolol Succinate 100 mg DAILY PO 07/26/24 10:00 07/26/24 08:32 100 MG Gabapentin 100 mg TID PO 07/25/24 22:00 07/25/24 21:41 100 MG Laboratory Results Laboratory Tests 07/26/24 04:49 Chemistry Test 07/26/24 04:49 Albumin 4.0 g/dL (3.2-4.8) Calcium Level 9.5 mg/dL (8.7-10.4) Total Protein 6.7 g/dL (5.7-8.2) LFT Test 07/26/24 04:49 Alanine Aminotransferase (ALT) 49 U/L (7-40) H Alkaline Phosphatase 130 U/L (46-116) H Aspartate Amino Transferase (AST) 43 U/L (<34) H Total Bilirubin 0.2 mg/dL (0.2-1.0) Assessment/Plan Assessment/Plan SULEMAN (acute kidney injury) on CKD with no baseline creat to compare Hydronephrosis s/p nephrostomy tubes Bladder stones, Uncontrolled hypertension, Elevated troponin, Consult cardiology due to elevated troponins Echo ordered Urology planning on lithotripsy Renal following Plan discussed with: Patient Date of Service: Jul 26, 2024 Billing Provider: MELA AGEE MD Common Visit Codes: [id number] INP/OBS CARE(HIGH) MELA AGEE MD Jul 26, 2024 16:04
--- NOTE | 2024-07-26 17:19 | DVHPN2 ---
Progress Note Date Seen: Jul 26, 2024 Medical Necessity Reason Pt with a Central, PICC or Fol: Yes The following are medically ne: Stuart Catheter Subjective Patient reports: No new complaints Review of Systems: Deferred Objective vital signs Vital Sign Date Time Temp Pulse Resp B/P (MAP) Pulse Ox O2 Delivery O2 Flow Rate FiO2 07/26/24 12:52 97.0 71 18 133/81 (98) 98 97.0 07/26/24 08:00 Room Air* 0 21 Total Intake and Output 07/25/24 07/25/24 07/26/24 15:00 23:00 07:00 Intake Total 310 ml 180 ml Output Total 450 ml 800 ml Balance -140 ml -620 ml medications Current Medications Medications Dose Ordered Sig/Yves Route Start Time Stop Time Status Last Admin Dose Admin Acetaminophen/ Hydrocodone Bitart 1 tab Q4HP PRN PO 07/25/24 11:00 07/26/24 17:02 Ondansetron HCl 4 mg Q4HP PRN IV 07/25/24 11:00 Docusate Sodium 100 mg BIDPRN PRN PO 07/25/24 11:00 Acetaminophen 650 mg Q6HP PRN PO 07/25/24 11:00 Metoprolol Succinate 100 mg DAILY PO 07/26/24 10:00 07/26/24 08:32 Gabapentin 100 mg TID PO 07/25/24 22:00 07/25/24 21:41 Examination: GENERAL:Normal, HEENT:Normal, NECK:Normal, LUNGS:Normal, CVS:Normal, ABDOMEN:Normal, MSK:Normal, SKIN:Normal, NEURO:Normal, :Normal laboratory and microbiology Laboratory Tests 07/26/24 04:49 Test 07/26/24 04:49 Range/Units Serum Glucose 80 74-106 mg/dL Problem List/Assessment/Plan Problem List/Assessment/Plan Acute kidney injury secondary to obstructive kidney disease. Chronic kidney disease unspecified baseline unknown Bilateral renal stones Bilateral hydronephrosis Chronic urinary retention with Stuart catheter Hypocalcemia hyperkalemia Recommendations DC IV fluids Continue to drain and monitoring output from Stuart catheter s/p PCNT urology planning procedure tomorrow Plan discussed with: Patient HOWARD DELAROSA MD Jul 26, 2024 17:19
[2024-07-27] VITALS (9 sets, daily range): BP systolic 158–180; BP diastolic 86–102; PULSE 57–134; RESP 13–18; TEMP 96.8–97.9; O2SAT 98–100
[2024-07-27] MEDS: KETOROLAC TROMETH 30 MG/ML 1ML VIAL IV ONE (05:56)
[2024-07-27 06:59] LABS: Amphetamine Screen, Urine Neg (NEGATIVE); Benzodiazephine Screen, Urine Neg (NEGATIVE)
[2024-07-27 07:00] LABS: Opiate Scree,Urine Pos (NEGATIVE)
[2024-07-27 07:03] LABS: Barbiturate Scree,Urine Neg (NEGATIVE); Cannabinoid Screen, Urine Neg (NEGATIVE); Cocaine Screen, Urine Neg (NEGATIVE); Phencyclidine Screen, Urine Neg (NEGATIVE)
--- NOTE | 2024-07-27 10:13 | DVHPN2 ---
Progress Note Date Seen: Jul 27, 2024 Medical Necessity Reason Pt with a Central, PICC or Fol: Yes The following are medically ne: Stuart Catheter Subjective Patient reports: No new complaints, Other (asking pain meds) Review of Systems: Deferred Objective vital signs Vital Sign Date Time Temp Pulse Resp B/P (MAP) Pulse Ox O2 Delivery O2 Flow Rate FiO2 07/27/24 08:53 97.5 68 18 162/96 (118) 98 97.5 07/27/24 08:28 Room Air* 0 21 Total Intake and Output 07/26/24 07/26/24 07/27/24 15:00 23:00 07:00 Intake Total 1000 ml 1000 ml 300 ml Output Total 1250 ml Balance 1000 ml -250 ml 300 ml medications Current Medications Medications Dose Ordered Sig/Yves Route Start Time Stop Time Status Last Admin Dose Admin Acetaminophen/ Hydrocodone Bitart 1 tab Q4HP PRN PO 07/25/24 11:00 07/27/24 04:06 1 TAB Ondansetron HCl 4 mg Q4HP PRN IV 07/25/24 11:00 Docusate Sodium 100 mg BIDPRN PRN PO 07/25/24 11:00 Acetaminophen 650 mg Q6HP PRN PO 07/25/24 11:00 Metoprolol Succinate 100 mg DAILY PO 07/26/24 10:00 07/27/24 08:28 100 MG Gabapentin 100 mg TID PO 07/25/24 22:00 07/25/24 21:41 100 MG laboratory and microbiology Laboratory Tests 07/26/24 04:49 Test 07/26/24 04:49 Range/Units Serum Glucose 80 74-106 mg/dL Problem List/Assessment/Plan Problem List/Assessment/Plan Acute kidney injury secondary to obstructive kidney disease. Chronic kidney disease unspecified baseline unknown Bilateral renal stones Bilateral hydronephrosis Chronic urinary retention with Stuart catheter Hypocalcemia hyperkalemia Recommendations DC IV fluids,lasix 1 dose s/p PCNT urology planning procedure today Plan discussed with: Patient My Orders My Orders Orders - HOWARD DELAROSA MD Procedure Category Date Status Time Furosemide Injection PHA 07/27/24 Verified (Lasix Injection) 10:15 Basic Metabolic Panel LAB 07/28/24 Verified 05:00 Basic Metabolic Panel LAB 07/29/24 Verified 05:00 Basic Metabolic Panel LAB 07/30/24 Verified 05:00 Basic Metabolic Panel LAB 07/31/24 Verified 05:00 Basic Metabolic Panel LAB 08/01/24 Verified 05:00 Basic Metabolic Panel LAB 08/02/24 Verified 05:00 Basic Metabolic Panel LAB 08/03/24 Verified 05:00 HOWARD DELAROSA MD Jul 27, 2024 10:13
--- NOTE | 2024-07-27 11:27 | DVHPN2 ---
Subjective The patient is seen and examined at bedside. The patient complained of pain in the abdomen. Reviewed: Care Plan, H&P, Labs, Medications, Previous Orders, Radiology Changes from previous H/P or p: No Changes Eyes: No Pain, No Vision change, No Conjunctivae inflammation, No Eyelid inflammation, No Other, No Redness ENT: No Ear pain, No Ear discharge, No Nose pain, No Nose discharge, No Nose congestion, No Mouth pain, No Mouth swelling, No Throat pain, No Throat swelling, No Other Cardiovascular: No Chest Pain, No Palpitations, No Orthopnea, No Paroxysmal Noc. Dyspnea, No Edema, No Lt Headedness; Other (hypertension) Respiratory: No Cough, No Dry, No Shortness of breath, No SOB with excertion, No Wheezing, No Hemoptysis, No Pleuritic Pain, No Sputum, No Other Gastrointestinal: No Nausea, No Vomiting; Abdominal Pain; No Diarrhea, No Constipation, No Melena, No Hematochezia, No Other Genitourinary: No Dysuria, No Frequency, No Incontinence, No Hematuria, No Retention, No Other Musculoskeletal: No other, No neck pain, No shoulder pain, No arm pain; back pain (flank pain); No hand pain, No leg pain, No foot pain Skin: No Rash, No Lesions, No Jaundice, No Bruising, No Other Objective Vitals Vital Signs Date Time Temp Pulse Resp B/P (MAP) Pulse Ox O2 Delivery O2 Flow Rate FiO2 07/27/24 08:53 97.5 68 18 162/96 (118) 98 97.5 07/27/24 08:28 Room Air* 0 21 Intake/Output Intake and Output 07/27/24 06:59 Intake Total 2300 ml Output Total 1250 ml Balance 1050 ml Intake Oral 1300 ml IV Total 1000 ml Output Urine Total 1000 ml Other 250 ml General Appearance: Alert, Oriented X3, Cooperative, No acute distress HEENT: Atraumatic, PERRLA, EOMI, Mucous membr. moist/pink Lungs: Clear to auscultation Cardiovascular: Regular rate, Normal S1, Normal S2, No murmurs, Gallops, Rubs Abdomen: Normal bowel sounds, Soft, No tenderness Neuro: Cranial nerves 3-12 NL Psych/Mental Status: Mental status NL Medications Current Medications Medications Dose Ordered Sig/Yves Route Start Time Stop Time Status Last Admin Dose Admin Acetaminophen/ Hydrocodone Bitart 1 tab Q4HP PRN PO 07/25/24 11:00 07/27/24 04:06 1 TAB Ondansetron HCl 4 mg Q4HP PRN IV 07/25/24 11:00 Docusate Sodium 100 mg BIDPRN PRN PO 07/25/24 11:00 Acetaminophen 650 mg Q6HP PRN PO 07/25/24 11:00 Metoprolol Succinate 100 mg DAILY PO 07/26/24 10:00 07/27/24 08:28 100 MG Gabapentin 100 mg TID PO 07/25/24 22:00 07/25/24 21:41 100 MG Laboratory Results Laboratory Tests 07/26/24 04:49 Labs and/or images reviewed: Labs reviewed by me Assessment/Plan Assessment/Plan SULEMAN (acute kidney injury) on CKD with no baseline creat to compare Hydronephrosis s/p nephrostomy tubes Bladder stones, Uncontrolled hypertension, Elevated troponin, Consult cardiology due to elevated troponins Echo ordered, we will follow up Urology planning on lithotripsy Appreciate nephrology input Plan discussed with: Patient Date of Service: Jul 27, 2024 Billing Provider: ADAMARIS MORAN MD Common Visit Codes: [id number] INP/OBS CARE(HIGH) ADAMARIS MORAN MD Jul 27, 2024 11:27
[2024-07-27] MEDS: FUROSEMIDE 40 MG/4 ML VIAL IV ONE (11:33)
--- NOTE | 2024-07-27 12:20 | DVHINCON2 ---
Date Seen: Jul 27, 2024 Referring Physician MD Brittani Reason for Consultation Elevated troponin History of Present Illness This is a 63-year-old male patient who presents to emergency room with chief complaint of flank pain. The patient was recently seen at this facility and was diagnosed with bilateral hydronephrosis and multiple bladder calculi. He underwent a right nephrostomy tube placement for obstructive uropathy on 07/24/2024. The patient then left against medical advice one day prior to emergency room arrival and now returns with flank pain. Cardiology is being consulted at this time for elevated troponin. Initial twelve lead electrocardiogram reveals normal sinus rhythm with right bundle branch block. Initial troponin level of 58ng/L with flat trend thereafter. He denies any c ardiac symptoms. Significant past medical history includes congestive heart failure, hypertension, CVA, kidney stones, amphetamine use, and tobacco use. 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 Past Medical History Past medical history reviewed. No other significant than mentioned above. Past Surgical History Cholecystectomy Family History: Diabetes mellitus G8 MOTHER, Family History Family history reviewed. Social History Patient has a 49 pack-year history, smokes one pack per day Patient admits to methamphetamine use, last time approximately two weeks ago Patient reports history of alcoholism Allergies: Coded Allergies: NO KNOWN ALLERGIES (Unverified , 07/20/24) Home Meds Reported Medications Folic Acid (Folic Acid) 1 Mg Tab, 1 TAB PO DAILY for 30 Days, #30 07/26/24 Tamsulosin Hcl (Tamsulosin Hcl) 0.4 Mg Cap, 1 PO DAILY for 30 Days, #30 07/26/24 Finasteride (Finasteride) 5 Mg Tab, 1 TAB PO DAILY for 30 Days, #30 07/26/24 Sodium Bicarbonate (Sodium Bicarbonate) 650 Mg Tab, 1 TAB PO BID for 30 Days, #60 07/26/24 Furosemide (Furosemide) 40 Mg Tab, 1 TAB PO DAILY for 30 Days, #30 07/26/24 Carvedilol (Carvedilol) 12.5 Mg Tab, 1 TAB PO BID for 30 Days, #60 07/26/24 Nifedipine (Nifedipine Er) 90 Mg Tab, 1 TAB PO DAILY for 30 Days, #30 07/26/24 Doxycycline Hyclate (Doxycycline Hyclate) 100 Mg Cap, 1 CAP PO BID for 14 Days, #28 07/26/24 Metoprolol Succinate (Metoprolol Succinate Er) 100 Mg Tab, 1 TAB PO DAILY 07/25/24 Gabapentin (Gabapentin) 100 Mg Cap, 1 CAP PO TID 07/25/24 Home Meds Home medications reviewed. Review of Systems Constitutional: No symptom reported Ears, Nose, & Throat: No symptom reported Eyes: No symptom reported Neurological: No symptoms reported Pulmonary/Respiratory: No symptoms reported Cardiovascular: No symptom reported Gastrointestinal: No symptom reported Genitourinary: Flank pain Musculoskeletal: No symptom reported Skin: No symptom reported Psychiatric: No symptom reported Endocrine: No symptom reported Hematologic/Lymphatic: No symptom reported Vital Signs Vital Signs Date Time Temp Pulse Resp B/P (MAP) Pulse Ox O2 Delivery O2 Flow Rate FiO2 07/27/24 11:33 165/105 07/27/24 08:53 97.5 68 18 98 97.5 07/27/24 08:28 Room Air* 0 21 Physical Exam General Appearance: Cooperative. Well-developed. Well-nourished. No acute distress. Pulmonary/Respiratory: Clear, bilateral breaths sounds. Cardiovascular/Chest: Regular rate and rhythm. Peripheral Pulses: 2+ Radial (R). 2+ Radial (L). 2+ Pedal (R). 2+ Pedal (L) Abdominal Exam: Normal bowel sounds. Ankle Exam: Negative ankle edema Lower extremities: Negative lower extremity edema Neuro/Mental Status: A/OX4, coherent. Thoughts/Psych: Normal thought pattern. Appropriate mood and affect. Good judgment and insight. Appearance: No acute distress. Skin Exam: Normal inspection. Normal color. Warm and dry. Labs/Diagnostic Data Labs Test 07/27/24 06:00 07/26/24 04:49 07/25/24 10:35 Range/Units Urine Opiates Screen Pos NEGATIVE Urine Fentanyl Screen Neg NEGATIVE Urine Barbiturates Screen Neg NEGATIVE Urine Phencyclidine Screen Neg NEGATIVE Urine Amphetamines Screen Neg NEGATIVE Urine Benzodiazepines Screen Neg NEGATIVE Urine Cocaine Screen Neg NEGATIVE Urine Cannabinoids Screen Neg NEGATIVE White Blood Count 5.9 4.4-10.8 10^3/uL Red Blood Count 4.43 L 4.5-5.90 10^6/uL Hemoglobin 10.6 L 13.5-17.5 g/dL Hematocrit 33.1 L 41.0-53.0 % Mean Corpuscular Volume 74.6 L 80.0-100.0 fL Mean Corpuscular Hemoglobin 23.9 L 28.0-32.0 pg Mean Corpuscular Hemoglobin Concent 32.1 32.0-36.0 g/dL Red Cell Distribution Width 24.4 H 11.8-14.3 % Platelet Count 319 140-450 10^3/uL Mean Platelet Volume 6.7 L 6.9-10.8 fL Neutrophils (%) (Auto) 65.7 37.0-80.0 % Lymphocytes (%) (Auto) 23.8 10.0-50.0 % Monocytes (%) (Auto) 7.4 0.0-12.0 % Eosinophils (%) (Auto) 2.3 0.0-7.0 % Basophils (%) (Auto) 0.8 0.0-2.0 % Neutrophils # (Auto) 3.9 1.6-8.6 10 ^3/uL Lymphocytes # (Auto) 1.4 0.4-5.4 10 ^3/uL Monocytes # (Auto) 0.4 0-1.3 10 ^3/uL Eosinophils # (Auto) 0.1 0-0.8 10 ^3/uL Basophils # (Auto) 0 0-0.2 10 ^3/uL Nucleated Red Blood Cells 0.1 % Platelet Estimate Adequate Hypochromasia (manual) Moderate Poikilocytosis (manual) Slight Anisocytosis (manual) Moderate Microcytosis Moderate Target Cells Few Ovalocytes Few Schistocytes Few Sodium Level 141 136-145 mmol/L Potassium Level 5.3 H 3.5-5.1 mmol/L Chloride Level 109 H 98-107 mmol/L Carbon Dioxide Level 21 20-31 mmol/L Anion Gap 11 5-15 Blood Urea Nitrogen 51 H 9-23 mg/dL Creatinine 2.87 H 0.700-1.30 mg/dL Glomerular Filtration Rate Calc 24 >90 mL/min BUN/Creatinine Ratio 17.8 10.0-20.0 Serum Glucose 80 74-106 mg/dL Calcium Level 9.5 8.7-10.4 mg/dL Total Bilirubin 0.2 0.2-1.0 mg/dL Aspartate Amino Transferase (AST) 43 H <34 U/L Alanine Aminotransferase (ALT) 49 H 7-40 U/L Alkaline Phosphatase 130 H 46-116 U/L Total Protein 6.7 5.7-8.2 g/dL Albumin 4.0 3.2-4.8 g/dL Troponin I High Sensitivity 67 *H </=54 ng/L Assessment NSTEMI, likely type II Acute on chronic HFrEF, NYHA class III Cardiomyopathy, 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 Frank): * Transthoracic echocardiogram from 07/23/2024 reveals an EF of 25% with global hypokinesis * Unable to initiate full guideline directed medical therapy for CHF given elevated creatinine * Hold ACEi/ARB/ARNI, MRA (spironolactone), and SGLT2i given poor renal function (elevated creatinine, hyperkalemia and low GFR) * Strict intake and output, daily weights, maintain fluid restriction * Avoid nephrotoxic agents * Urology/nephrology consult and recommendations * Continuous telemetry monitoring * Risk factor modifications, counseled * Lifestyle changes * Adherence to medication regimen Elevated troponin level likely secondary to renal impairment and electrolyte derangement. The patient denies any cardiac symptoms. Unable to initiate full guideline directed medical therapy for CHF given poor renal function at this time. There is no further inpatient cardiac workup indicated at this time. The patient will need to follow up with Cardiology in the outpatient setting in 1-2 weeks post discharge. Thank you for allowing us to care for this patient. Please call with any questions or concerns. Critical care time spent: 44 minutes This medical document was created using an electronic medical record system with voice recognition software and computerized dictation system. Although this document has been carefully reviewed, there might still be some phonetic and typographical errors. Occasional wrong-word or ``sound-alike substitutions may have occurred due to the inherent limitations of voice recognition software. These areas are purely typographical due to imperfections of the software programs and do not reflect any compromise in the patient's medical care. Please read the chart carefully and recognize, using context, where these substitutions have occurred. Plan discussed with: Patient NYHA Physical activity limitations: Class3(Marked) ordinary Date of Service: Jul 27, 2024 Billing Provider: DARVIN TORREZ Cardiology Common Codes: [id number] INP/OBS CARE (High) Cardiology Consultation Codes: [id number] CONSULT <45MIN TORREZ,DARVIN [facility] Jul 27, 2024 12:19
[2024-07-27] MEDS ORDERED: fentaNYL CITRATE 100 MCG/2 ML VL ONE (13:36)
[2024-07-27] MEDS ORDERED: MIDAZOLAM HCL 2MG/2ML 2ml VIAL (1mg/ml) ONE (13:36)
[2024-07-27] MEDS ORDERED: ONDANSETRON HCL 4 MG/2 ML VIAL ONE (13:42)
[2024-07-27] MEDS ORDERED: METOCLOPRAMIDE HCL 5MG/ml INJ 2ml VIAL ONE (13:42)
[2024-07-27] MEDS ORDERED: LIDOCAINE 1% INJ PF 5ML AMP ONE (13:42)
[2024-07-27] MEDS ORDERED: KETOROLAC TROMETH 30 MG/ML 1ML VIAL IV ONE (14:00)
[2024-07-27] MEDS ORDERED: ONDANSETRON HCL 4 MG/2 ML VIAL IV ONE (14:00)
[2024-07-27] MEDS: ceFAZolin 2 GM/D5W50ml 50 ML IV ONE (14:00)
[2024-07-27] MEDS ORDERED: METOCLOPRAMIDE HCL 5MG/ml INJ 2ml VIAL IV ONE (14:00)
[2024-07-27] MEDS ORDERED: HYDROmorphone HCL 2 MG/ML VL/or syr IV PRN (14:00)
--- NOTE | 2024-07-27 14:58 | DVHNC2 ---
Procedure - OPERATIVE REPORT Pre-op. Diagnosis: Bladder calculi, multiple >5 cm Post-op. Diagnosis: Same as pre-op diagnosis Operation: Shock/pulse ultrasonic Cystolitholapaxy Anesthesia: General Indications: Patient was found to have symptomatic bladder stones > 5cm. Informed Consent: Indications, risks, complications, alternatives and benefits of ultrasonic/laser cystolitholapaxy were discussed with patient. All question were encouraged and answered. He elected to proceed. Details of Procedure: Under satisfactory anesthesia, the patient was positioned in lithotomy and cystoscopy is performed with finding of large (>5 cm) bladder stones. Using the Shock/Pulse ultrasonic system, the bladder calculi are pulverized into fragments and suctioned out. 18 F Stuart catheter was placed. The patient was then taken off the OR table and sent to recovery room in stable condition. Specimens: Bladder calculi fragments Complications: None JANA OSMAN MD Jul 27, 2024 14:58
[2024-07-27] MEDS: hydrALAZINE HCL 20 MG/ML VL IV PRN (15:29)
[2024-07-28] VITALS (7 sets, daily range): BP systolic 134–154; BP diastolic 74–98; PULSE 61–77; RESP 18–19; TEMP 97.7–98.6; O2SAT 94–100
[2024-07-28] MEDS: MORPHINE SULFATE INJ 2 MG/ml SYRG IV PRN (04:56)
[2024-07-28 08:58] LABS: Anion Gap 9 (5-15); Carbon Dioxide 22 mmol/L (20-31); Chloride 105 mmol/L (98-107); Potassium 5.1 mmol/L (3.5-5.1)
[2024-07-28 08:59] LABS: Calcium 9.1 mg/dL (8.7-10.4)
[2024-07-28 09:01] LABS: Sodium 136 mmol/L (136-145)
[2024-07-28 09:04] LABS: BUN/Creatinine Ratio 20.7 (10.0-20.0)
[2024-07-28 09:16] LABS: Blood Urea Nitrogen 61 mg/dL (9-23); Glucose 131 mg/dL (74-106)
--- NOTE | 2024-07-28 09:22 | DVHPN2 ---
Progress Note Date Seen: Jul 28, 2024 Medical Necessity Reason Pt with a Central, PICC or Fol: Yes The following are medically ne: Stuart Catheter Subjective Patient reports: No new complaints Other Systems: Patient seen and examined by myself today in follow-up Objective vital signs Vital Sign Date Time Temp Pulse Resp B/P (MAP) Pulse Ox O2 Delivery O2 Flow Rate FiO2 07/28/24 05:00 98.6 61 18 134/74 (94) 97 98.6 07/27/24 20:00 Room Air* 0 21 Total Intake and Output 07/27/24 07/27/24 07/28/24 15:00 23:00 07:00 Intake Total 150 ml 1075 ml Output Total 400 ml 400 ml 1775 ml Balance -250 ml -400 ml -700 ml medications Current Medications Medications Dose Ordered Sig/Yves Route Start Time Stop Time Status Last Admin Dose Admin Acetaminophen/ Hydrocodone Bitart 1 tab Q4HP PRN PO 07/25/24 11:00 07/27/24 04:06 1 TAB Ondansetron HCl 4 mg Q4HP PRN IV 07/25/24 11:00 Docusate Sodium 100 mg BIDPRN PRN PO 07/25/24 11:00 Acetaminophen 650 mg Q6HP PRN PO 07/25/24 11:00 Metoprolol Succinate 100 mg DAILY PO 07/26/24 10:00 07/27/24 08:28 100 MG Gabapentin 100 mg TID PO 07/25/24 22:00 07/25/24 21:41 100 MG Morphine Sulfate 2 mg Q6HPRN PRN IV 07/27/24 19:45 07/28/24 04:56 2 MG Examination: LUNGS:Normal, CVS:Normal, MSK:Normal laboratory and microbiology Laboratory Tests 07/28/24 08:37 07/26/24 04:49 Test 07/28/24 08:37 Range/Units Serum Glucose 131 H 74-106 mg/dL Problem List/Assessment/Plan Problem List/Assessment/Plan Acute kidney injury secondary to obstructive kidney disease. Chronic kidney disease unspecified baseline unknown Bilateral renal stones Bilateral hydronephrosis Bladder stones Chronic urinary retention with Stuart catheter hyperkalemia Anemia of chronic kidney disease Elevated troponin Recommendations Kidney function is improving Status post lithotripsy 07/27 Increase urine output Hyperkalemia resolving Renal diet Check calcium phosphorus and 25 hydroxyvitamin D Will continue to follow Plan discussed with: Patient SHADY KEATING MD Jul 28, 2024 09:22
[2024-07-28] MEDS ORDERED: LORazepam 0.5 MG TAB PO ONE (10:30)
--- NOTE | 2024-07-28 11:44 | DVHPN2 ---
Subjective The patient is seen and examined at bedside. The patient complained of pain in the abdomen. Reviewed: Care Plan, H&P, Labs, Medications, Previous Orders, Radiology Changes from previous H/P or p: No Changes Eyes: No Pain, No Vision change, No Conjunctivae inflammation, No Eyelid inflammation, No Other, No Redness ENT: No Ear pain, No Ear discharge, No Nose pain, No Nose discharge, No Nose congestion, No Mouth pain, No Mouth swelling, No Throat pain, No Throat swelling, No Other Cardiovascular: No Chest Pain, No Palpitations, No Orthopnea, No Paroxysmal Noc. Dyspnea, No Edema, No Lt Headedness; Other (hypertension) Respiratory: No Cough, No Dry, No Shortness of breath, No SOB with excertion, No Wheezing, No Hemoptysis, No Pleuritic Pain, No Sputum, No Other Gastrointestinal: No Nausea, No Vomiting; Abdominal Pain; No Diarrhea, No Constipation, No Melena, No Hematochezia, No Other Genitourinary: No Dysuria, No Frequency, No Incontinence, No Hematuria, No Retention, No Other Musculoskeletal: No other, No neck pain, No shoulder pain, No arm pain; back pain (flank pain); No hand pain, No leg pain, No foot pain Skin: No Rash, No Lesions, No Jaundice, No Bruising, No Other Objective Vitals Vital Signs Date Time Temp Pulse Resp B/P (MAP) Pulse Ox O2 Delivery O2 Flow Rate FiO2 07/28/24 10:18 63 156/88 07/28/24 08:15 18 97 Room Air* 0 21 07/28/24 05:00 98.6 98.6 Intake/Output Intake and Output 07/28/24 06:59 Intake Total 1225 ml Output Total 2575 ml Balance -1350 ml Intake Oral 1075 ml IV Total 150 ml Output Urine Total 1850 ml Drainage Total 100 ml Other 625 ml General Appearance: Alert, Oriented X3, Cooperative, No acute distress HEENT: Atraumatic, PERRLA, EOMI, Mucous membr. moist/pink Lungs: Clear to auscultation Cardiovascular: Regular rate, Normal S1, Normal S2, No murmurs, Gallops, Rubs Abdomen: Normal bowel sounds, Soft, No tenderness Neuro: Cranial nerves 3-12 NL Psych/Mental Status: Mental status NL Medications Current Medications Medications Dose Ordered Sig/Yves Route Start Time Stop Time Status Last Admin Dose Admin Acetaminophen/ Hydrocodone Bitart 1 tab Q4HP PRN PO 07/25/24 11:00 07/27/24 04:06 1 TAB Ondansetron HCl 4 mg Q4HP PRN IV 07/25/24 11:00 Docusate Sodium 100 mg BIDPRN PRN PO 07/25/24 11:00 Acetaminophen 650 mg Q6HP PRN PO 07/25/24 11:00 Metoprolol Succinate 100 mg DAILY PO 07/26/24 10:00 07/28/24 10:18 100 MG Gabapentin 100 mg TID PO 07/25/24 22:00 07/25/24 21:41 100 MG Morphine Sulfate 2 mg Q6HPRN PRN IV 07/27/24 19:45 07/28/24 04:56 2 MG Laboratory Results Laboratory Tests 07/26/24 04:49 07/28/24 08:37 Chemistry Test 07/28/24 08:37 Calcium Level 9.1 mg/dL (8.7-10.4) Phosphorus Level 3.8 mg/dL (2.4-5.1) Labs and/or images reviewed: Labs reviewed by me Assessment/Plan Assessment/Plan SULEMAN (acute kidney injury) on CKD with no baseline creat to compare Hydronephrosis s/p nephrostomy tubes Bladder stones, Uncontrolled hypertension, Elevated troponin, Consult cardiology due to elevated troponins Echo ordered, we will follow up Urology planning on lithotripsy Appreciate nephrology input Continue Stuart Morphine for pain control. Plan discussed with: Patient Date of Service: Jul 28, 2024 Billing Provider: ADAMARIS MORAN MD Common Visit Codes: [id number] INP/OBS CARE(HIGH) ADAMARIS MORAN MD Jul 28, 2024 11:44
--- NOTE | 2024-07-28 17:27 | DVHPN2 ---
Progress Note - Dictate Date Seen: Jul 28, 2024 Has the PT tested + for MRSA If YES, has PT been informed?: No Medical Necessity Reason Pt with a Central, PICC or Fol: Yes The following are medically ne: Stuart Catheter Medical Necessity Reason POD#1 s/p cystolitholapaxy Subjective postoperative pain/catheter discomfort vital signs Vital Sign Date Time Temp Pulse Resp B/P (MAP) Pulse Ox O2 Delivery O2 Flow Rate FiO2 07/28/24 16:47 98.3 66 18 151/92 (111) 99 98.3 07/28/24 08:15 Room Air* 0 21 Total Intake and Output 07/27/24 07/27/24 07/28/24 15:00 23:00 07:00 Intake Total 150 ml 1075 ml Output Total 400 ml 400 ml 1775 ml Balance -250 ml -400 ml -700 ml medications Current Medications Medications Dose Ordered Sig/Yves Route Start Time Stop Time Status Last Admin Dose Admin Acetaminophen/ Hydrocodone Bitart 1 tab Q4HP PRN PO 07/25/24 11:00 07/27/24 04:06 1 TAB Ondansetron HCl 4 mg Q4HP PRN IV 07/25/24 11:00 Docusate Sodium 100 mg BIDPRN PRN PO 07/25/24 11:00 Acetaminophen 650 mg Q6HP PRN PO 07/25/24 11:00 Metoprolol Succinate 100 mg DAILY PO 07/26/24 10:00 07/28/24 10:18 100 MG Gabapentin 100 mg TID PO 07/25/24 22:00 07/25/24 21:41 100 MG Morphine Sulfate 2 mg Q6HPRN PRN IV 07/27/24 19:45 07/28/24 15:53 2 MG laboratory and microbiology Laboratory Tests 07/28/24 08:37 07/26/24 04:49 Test 07/28/24 08:37 Range/Units Serum Glucose 131 H 74-106 mg/dL Problem List Bladder stones Bilateral hydronephrosis YOUNG Assessment/Plan Bilateral hydronephrosis Right percutaneous nephrostomy tube in-situ Multiple bladder calculi- resolved. Indwelling Stuart catheter Outpatient voiding trial and nephrostomy tube removal in clinic one week Plan discussed with: Other JANA OSMAN MD Jul 28, 2024 17:27
[2024-07-29] VITALS (10 sets, daily range): BP systolic 146–187; BP diastolic 77–106; PULSE 62–78; RESP 17–20; TEMP 97–98.5; O2SAT 95–98
[2024-07-29 07:27] LABS: Anion Gap 10 (5-15); Sodium 138 mmol/L (136-145)
[2024-07-29 07:29] LABS: Calcium 9.1 mg/dL (8.7-10.4)
[2024-07-29 07:33] LABS: Carbon Dioxide 18 mmol/L (20-31); Chloride 110 mmol/L (98-107); Potassium 5.2 mmol/L (3.5-5.1)
[2024-07-29 07:34] LABS: BUN/Creatinine Ratio 18.1 (10.0-20.0); Glucose 105 mg/dL (74-106)
[2024-07-29 07:50] LABS: Blood Urea Nitrogen 56 mg/dL (9-23)
--- NOTE | 2024-07-29 09:18 | DVHPN2 ---
Progress Note Date Seen: Jul 29, 2024 Has the PT tested + for MRSA If YES, has PT been informed?: No Medical Necessity Reason Pt with a Central, PICC or Fol: Yes The following are medically ne: Stuart Catheter Subjective Patient reports: No new complaints Other Systems: Patient seen and examined by myself today in follow-up Objective vital signs Vital Sign Date Time Temp Pulse Resp B/P (MAP) Pulse Ox O2 Delivery O2 Flow Rate FiO2 07/29/24 09:00 97.4 78 20 187/106 (133) 96 97.4 07/28/24 20:00 Room Air* 0 21 Total Intake and Output 07/28/24 07/28/24 07/29/24 14:59 22:59 06:59 Intake Total 1000 ml 676 ml Output Total 900 ml 900 ml Balance 100 ml -224 ml medications Current Medications Medications Dose Ordered Sig/Yves Route Start Time Stop Time Status Last Admin Dose Admin Acetaminophen/ Hydrocodone Bitart 1 tab Q4HP PRN PO 07/25/24 11:00 07/27/24 04:06 1 TAB Ondansetron HCl 4 mg Q4HP PRN IV 07/25/24 11:00 Docusate Sodium 100 mg BIDPRN PRN PO 07/25/24 11:00 Acetaminophen 650 mg Q6HP PRN PO 07/25/24 11:00 Metoprolol Succinate 100 mg DAILY PO 07/26/24 10:00 07/28/24 10:18 100 MG Gabapentin 100 mg TID PO 07/25/24 22:00 07/25/24 21:41 100 MG Morphine Sulfate 2 mg Q6HPRN PRN IV 07/27/24 19:45 07/29/24 03:39 2 MG Examination: LUNGS:Normal, CVS:Normal, MSK:Normal laboratory and microbiology Laboratory Tests 07/29/24 06:38 07/26/24 04:49 Test 07/29/24 06:38 Range/Units Serum Glucose 105 74-106 mg/dL Problem List/Assessment/Plan Problem List/Assessment/Plan Acute kidney injury secondary to obstructive kidney disease. Chronic kidney disease unspecified baseline unknown Bilateral renal stones Bilateral hydronephrosis Bladder stones Chronic urinary retention with Stuart catheter hyperkalemia Anemia of chronic kidney disease Elevated troponin Metabolic acidosis Hypertension Recommendations Kidney function is improving Status post lithotripsy 07/27 Increase urine output Hyperkalemia resolving Renal diet IVF 1/2 NS with sodium bicarbonate 50 milliequivalent/liter at 75 cc/hour Amlodipine 5 mg p.o. q.day for blood pressure control Will continue to follow Plan discussed with: Patient SHADY KEATING MD Jul 29, 2024 09:18
[2024-07-29] MEDS: amLODIPine BESYLATE 5 MG TAB PO SCH (11:32)
[2024-07-29] MEDS: SODIUM BICARB 50mEq/50ml Vial 50 ML in SOD CHL 0.45% 1,000 ML IV SCH (12:27)
--- NOTE | 2024-07-29 13:53 | DVHPN2 ---
Subjective The patient is seen and examined at bedside. The patient complained of pain in the abdomen. Patient however stated that he feels little bit better. Reviewed: Care Plan, H&P, Labs, Medications, Previous Orders, Radiology Changes from previous H/P or p: No Changes Eyes: No Pain, No Vision change, No Conjunctivae inflammation, No Eyelid inflammation, No Other, No Redness ENT: No Ear pain, No Ear discharge, No Nose pain, No Nose discharge, No Nose congestion, No Mouth pain, No Mouth swelling, No Throat pain, No Throat swelling, No Other Cardiovascular: No Chest Pain, No Palpitations, No Orthopnea, No Paroxysmal Noc. Dyspnea, No Edema, No Lt Headedness; Other (hypertension) Respiratory: No Cough, No Dry, No Shortness of breath, No SOB with excertion, No Wheezing, No Hemoptysis, No Pleuritic Pain, No Sputum, No Other Gastrointestinal: No Nausea, No Vomiting; Abdominal Pain; No Diarrhea, No Constipation, No Melena, No Hematochezia, No Other Genitourinary: No Dysuria, No Frequency, No Incontinence, No Hematuria, No Retention, No Other Musculoskeletal: No other, No neck pain, No shoulder pain, No arm pain; back pain (flank pain); No hand pain, No leg pain, No foot pain Skin: No Rash, No Lesions, No Jaundice, No Bruising, No Other Objective Vitals Vital Signs Date Time Temp Pulse Resp B/P (MAP) Pulse Ox O2 Delivery O2 Flow Rate FiO2 07/29/24 13:00 97.0 66 20 159/94 (115) 96 97.0 07/29/24 08:00 Room Air* 0 21 Intake/Output Intake and Output 07/29/24 07:00 Intake Total 1676 ml Output Total 1800 ml Balance -124 ml Intake Oral 1676 ml Output Urine Total 1400 ml Other 400 ml # Voids 2 General Appearance: Alert, Oriented X3, Cooperative, No acute distress HEENT: Atraumatic, PERRLA, EOMI, Mucous membr. moist/pink Lungs: Clear to auscultation Cardiovascular: Regular rate, Normal S1, Normal S2, No murmurs, Gallops, Rubs Abdomen: Normal bowel sounds, Soft, No tenderness Neuro: Cranial nerves 3-12 NL Psych/Mental Status: Mental status NL Medications Current Medications Medications Dose Ordered Sig/Yves Route Start Time Stop Time Status Last Admin Dose Admin Acetaminophen/ Hydrocodone Bitart 1 tab Q4HP PRN PO 07/25/24 11:00 07/29/24 11:33 1 TAB Ondansetron HCl 4 mg Q4HP PRN IV 07/25/24 11:00 Docusate Sodium 100 mg BIDPRN PRN PO 07/25/24 11:00 Acetaminophen 650 mg Q6HP PRN PO 07/25/24 11:00 Metoprolol Succinate 100 mg DAILY PO 07/26/24 10:00 07/29/24 09:23 100 MG Gabapentin 100 mg TID PO 07/25/24 22:00 07/25/24 21:41 100 MG Morphine Sulfate 2 mg Q6HPRN PRN IV 07/27/24 19:45 07/29/24 09:24 2 MG Sodium Bicarbonate 50 ml/ Sodium Chloride 1,050 ml @ 70 mls/hr Q15H IV 07/29/24 09:15 07/29/24 12:27 70 MLS/HR Amlodipine Besylate 5 mg DAILY PO 07/29/24 10:00 07/29/24 11:32 5 MG Laboratory Results Laboratory Tests 07/26/24 04:49 07/29/24 06:38 Chemistry Test 07/29/24 06:38 Calcium Level 9.1 mg/dL (8.7-10.4) Labs and/or images reviewed: Labs reviewed by me Assessment/Plan Assessment/Plan SULEMAN (acute kidney injury) on CKD with no baseline creat to compare Hydronephrosis s/p nephrostomy tubes Bladder stones, Uncontrolled hypertension, Elevated troponin, Consult cardiology due to elevated troponins Echo ordered, we will follow up Urology planning on lithotripsy Appreciate nephrology input Continue Stuart, the patient reports the Stuart still leaking The patient is seen multiple stone sediment in his nephrostomy tube Morphine for pain control. This medical document was created using an electronic medical record system with [employer] direct computerized dictation system. Although this document has been carefully reviewed, there may still be some phonetic and typographical errors. These areas are purely typographical due to imperfections of the software programs, and do not reflect any compromise in the patient's medical care. Plan discussed with: Patient My Orders Orders - ADAMARIS MORAN MD Procedure Category Date Status Time Stone Analysis Urinary LAB 07/28/24 In Process 16:05 Initiate Vte ALETHA 07/29/24 In Process Prophylaxis 09:35 Date of Service: Jul 29, 2024 Billing Provider: ADAMARIS MORAN MD Common Visit Codes: [id number] INP/OBS CARE(HIGH) ADAMARIS MORAN MD Jul 29, 2024 13:53
[2024-07-30] VITALS (7 sets, daily range): BP systolic 149–163; BP diastolic 79–94; PULSE 61–77; RESP 16–19; TEMP 97.7–98.6; O2SAT 96–99
[2024-07-30 06:46] LABS: Sodium 140 mmol/L (136-145)
[2024-07-30 06:47] LABS: Anion Gap 8 (5-15); Carbon Dioxide 22 mmol/L (20-31)
[2024-07-30 06:51] LABS: Chloride 110 mmol/L (98-107); Potassium 5.3 mmol/L (3.5-5.1)
[2024-07-30 06:52] LABS: BUN/Creatinine Ratio 19.4 (10.0-20.0); Blood Urea Nitrogen 55 mg/dL (9-23); Glucose 86 mg/dL (74-106)
--- NOTE | 2024-07-30 10:34 | DVHPN2 ---
Progress Note Date Seen: Jul 30, 2024 Has the PT tested + for MRSA If YES, has PT been informed?: No Medical Necessity Reason Pt with a Central, PICC or Fol: Yes The following are medically ne: Stuart Catheter Subjective Patient reports: No new complaints Other Systems: Patient seen and examined by myself today in follow-up Objective vital signs Vital Sign Date Time Temp Pulse Resp B/P (MAP) Pulse Ox O2 Delivery O2 Flow Rate FiO2 07/30/24 09:43 151/85 07/30/24 09:43 68 07/30/24 07:44 Room Air* 0 07/30/24 04:59 98.0 18 97 98.0 Total Intake and Output 07/29/24 07/29/24 07/30/24 15:00 23:00 07:00 Intake Total 60 ml 610 ml 410 ml Output Total 1150 ml 500 ml 1525 ml Balance -1090 ml 110 ml -1115 ml medications Current Medications Medications Dose Ordered Sig/Yves Route Start Time Stop Time Status Last Admin Dose Admin Acetaminophen/ Hydrocodone Bitart 1 tab Q4HP PRN PO 07/25/24 11:00 07/30/24 09:43 1 TAB Ondansetron HCl 4 mg Q4HP PRN IV 07/25/24 11:00 Docusate Sodium 100 mg BIDPRN PRN PO 07/25/24 11:00 Acetaminophen 650 mg Q6HP PRN PO 07/25/24 11:00 Metoprolol Succinate 100 mg DAILY PO 07/26/24 10:00 07/30/24 09:43 100 MG Gabapentin 100 mg TID PO 07/25/24 22:00 07/29/24 14:20 100 MG Morphine Sulfate 2 mg Q6HPRN PRN IV 07/27/24 19:45 07/29/24 23:05 2 MG Sodium Bicarbonate 50 ml/ Sodium Chloride 1,050 ml @ 70 mls/hr Q15H IV 07/29/24 09:15 07/30/24 05:51 70 MLS/HR Amlodipine Besylate 5 mg DAILY PO 07/29/24 10:00 07/30/24 09:43 5 MG Examination: LUNGS:Normal, CVS:Normal, MSK:Normal laboratory and microbiology Laboratory Tests 07/30/24 06:02 07/26/24 04:49 Test 6/22/25 06:02 Range/Units Serum Glucose 86 74-106 mg/dL Problem List/Assessment/Plan Problem List/Assessment/Plan Acute kidney injury secondary to obstructive kidney disease. Chronic kidney disease unspecified baseline unknown Bilateral renal stones Bilateral hydronephrosis Bladder stones Chronic urinary retention with Stuart catheter hyperkalemia Anemia of chronic kidney disease Elevated troponin Metabolic acidosis Hypertension Recommendations kidney function stable Chronic Kidney Disease stage 4 Status post lithotripsy 07/27 Increase urine output Lokelma 10 g p.o. today Renal diet IVF 1/2 NS with sodium bicarbonate 50 milliequivalent/liter at 75 cc/hour Amlodipine 5 mg p.o. q.day for blood pressure control Will continue to follow Plan discussed with: Patient Dietary Evaluation Review Comments: 1) Encourage optimal PO intake 2) Follow-up with urology, nephrology, and cardiology 3) Follow-up with social insurance administrator r/t methamphetamine abuse 4) Continue to monitor I&O, labs, and skin integrity Expected Outcomes/Goals: 1) appetite and labs to improve 2) f/u in 3-5 days SHADY KEATING MD Jul 30, 2024 10:33
[2024-07-30] MEDS: SODIUM ZIRCONIUM CYCL 10 GM PAK PO ONE (12:51)
--- NOTE | 2024-07-30 22:42 | DVHPN2 ---
Progress Note - Dictate Date Seen: Jul 30, 2024 Has the PT tested + for MRSA If YES, has PT been informed?: No Medical Necessity Reason Pt with a Central, PICC or Fol: Yes The following are medically ne: Stuart Catheter Medical Necessity Reason POD#3 s/p Cystolitholapaxy Subjective postoperative pain/catheter discomfort vital signs Vital Sign Date Time Temp Pulse Resp B/P (MAP) Pulse Ox O2 Delivery O2 Flow Rate FiO2 07/30/24 21:00 97.7 77 18 163/94 (117) 99 97.7 07/30/24 07:44 Room Air* 0 21 Total Intake and Output 07/29/24 07/29/24 07/30/24 15:00 23:00 07:00 Intake Total 60 ml 1260 ml 410 ml Output Total 1150 ml 500 ml 1525 ml Balance -1090 ml 760 ml -1115 ml medications Current Medications Medications Dose Ordered Sig/Yves Route Start Time Stop Time Status Last Admin Dose Admin Acetaminophen/ Hydrocodone Bitart 1 tab Q4HP PRN PO 07/25/24 11:00 07/30/24 14:49 1 TAB Ondansetron HCl 4 mg Q4HP PRN IV 07/25/24 11:00 Docusate Sodium 100 mg BIDPRN PRN PO 07/25/24 11:00 Acetaminophen 650 mg Q6HP PRN PO 07/25/24 11:00 Metoprolol Succinate 100 mg DAILY PO 07/26/24 10:00 07/30/24 09:43 100 MG Gabapentin 100 mg TID PO 07/25/24 22:00 07/30/24 14:43 100 MG Morphine Sulfate 2 mg Q6HPRN PRN IV 07/27/24 19:45 07/29/24 23:05 2 MG Sodium Bicarbonate 50 ml/ Sodium Chloride 1,050 ml @ 70 mls/hr Q15H IV 07/29/24 09:15 07/30/24 05:51 70 MLS/HR Amlodipine Besylate 5 mg DAILY PO 07/29/24 10:00 07/30/24 09:43 5 MG objective Stuart in place with clear urine laboratory and microbiology Laboratory Tests 07/30/24 06:02 07/26/24 04:49 Test 07/30/24 06:02 Range/Units Serum Glucose 86 74-106 mg/dL Problem List Bladder stones- resolved Bilateral hydronephrosis- s/p right PNT YOUNG Assessment/Plan Outpatient voiding trial and nephrostomy tube removal in clinic one week was the plan, but he remains inpatient. Will d/C Stuart CT Scan AP/NC Obtain right nephrostogram Dietary Evaluation Review Comments: 1) Encourage optimal PO intake 2) Follow-up with urology, nephrology, and cardiology 3) Follow-up with social work professor r/t methamphetamine abuse 4) Continue to monitor I&O, labs, and skin integrity Expected Outcomes/Goals: 1) appetite and labs to improve 2) f/u in 3-5 days Plan discussed with: Patient JANA OSMAN MD Jul 30, 2024 22:42
[2024-07-31] VITALS (11 sets, daily range): BP systolic 139–183; BP diastolic 76–109; PULSE 71–82; RESP 16–18; TEMP 97.6–98.2; O2SAT 97–100
[2024-07-31] MEDS: hydrALAZINE HCL 20 MG/ML VL IV ONE (00:57)
--- NOTE | 2024-07-31 01:16 | ECG ---
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
[2024-07-31 01:27] LABS: Potassium 4.8 mmol/L (3.5-5.1); Sodium 140 mmol/L (136-145)
[2024-07-31 01:28] LABS: Anion Gap 10 (5-15); Calcium 8.8 mg/dL (8.7-10.4); Carbon Dioxide 21 mmol/L (20-31)
[2024-07-31 01:32] LABS: Chloride 109 mmol/L (98-107)
[2024-07-31 01:33] LABS: BUN/Creatinine Ratio 17.5 (10.0-20.0); Glucose 105 mg/dL (74-106)
[2024-07-31 01:38] LABS: Blood Urea Nitrogen 48 mg/dL (9-23)
[2024-07-31] MEDS ORDERED: MORPHINE SULFATE INJ 2 MG/ml SYRG IV PRN ×2 (02:15)
[2024-07-31] MEDS ORDERED: NITROGLYCERIN 0.4 MG SL TAB SL PRN (02:15)
[2024-07-31] MEDS: SODIUM CHLOR 0.9% PF (SALINE LOCK) 10ML VIAL/SYR IV SCH (05:28)
[2024-07-31] MEDS: NITROGLYCERIN 0.4 MG SL TAB SL PRN (06:35)
--- NOTE | 2024-07-31 08:17 | DVH ---
EXAM: CT Abdomen and Pelvis Without Intravenous Contrast CLINICAL INDICATION: Pain TECHNIQUE: Axial computed tomography images of the abdomen and pelvis without intravenous contrast. This CT exam was performed using one or more of the following dose reduction techniques: automated exposure control, adjustment of the mA and/or kV according to patient size, and/or use of iterative r econstruction technique. COMPARISON: No relevant prior studies available. FINDINGS: LUNG BASES: Unremarkable. No mass. No consolidation. ABDOMEN: LIVER: Unremarkable. GALLBLADDER AND BILE DUCTS: Cholecystectomy. No ductal dilation. PANCREAS: Unremarkable. No ductal dilation. SPLEEN: Unremarkable. No splenomegaly. ADRENALS: Unremarkable. No mass. KIDNEYS AND URETERS: Indwelling external righted nephrostomy tube. No hydronephrosis. STOMACH AND BOWEL: Fecal retention in the colon consistent with constipation. No obstruction. No m ucosal thickening. PELVIS: APPENDIX: No findings to suggest acute appendicitis. BLADDER: Bladder wall thickening which may be due to the decompressed state of the bladder or due to cystitis. No stones. REPRODUCTIVE: The prostate gland is enlarged measuring 6.3 cm in maximum dimension. ABDOMEN and PELVIS: INTRAPERITONEAL SPACE: Unremarkable. No free air. No significant fluid collection. BONES/JOINTS: Degenerative disc disease throughout the lumbar spine. Degenerative facet arthropathy throughout the lumbar spine, most prominent in the lower lumbar spine. No acute fracture. No dislo cation. SOFT TISSUES: Unremarkable. VASCULATURE: Unremarkable. No abdominal aortic aneurysm. LYMPH NODES: Unremarkable. No enlarged lymph nodes. IMPRESSION: 1. Indwelling external righted nephrostomy tube. No hydronephrosis. 2. The prostate gland is enlarged. Correlation with PSA values may be helpful if not previously per formed. 3. Bladder wall thickening which may be due to the decompressed state of the bladder or due to cysti tis. 4. Fecal retention in the colon consistent with constipation. 5. Degenerative changes lumbar spine as described.
--- NOTE | 2024-07-31 08:28 | DVHPN2 ---
Subjective The patient is seen and examined at bedside. Pain is better controlled today with morphine and [place] Reviewed: Care Plan, H&P, Labs, Medications, Previous Orders, Radiology Changes from previous H/P or p: No Changes Eyes: No Pain, No Vision change, No Conjunctivae inflammation, No Eyelid inflammation, No Other, No Redness ENT: No Ear pain, No Ear discharge, No Nose pain, No Nose discharge, No Nose congestion, No Mouth pain, No Mouth swelling, No Throat pain, No Throat swelling, No Other Cardiovascular: No Chest Pain, No Palpitations, No Orthopnea, No Paroxysmal Noc. Dyspnea, No Edema, No Lt Headedness; Other (hypertension) Respiratory: No Cough, No Dry, No Shortness of breath, No SOB with excertion, No Wheezing, No Hemoptysis, No Pleuritic Pain, No Sputum, No Other Gastrointestinal: No Nausea, No Vomiting; Abdominal Pain; No Diarrhea, No Constipation, No Melena, No Hematochezia, No Other Genitourinary: No Dysuria, No Frequency, No Incontinence, No Hematuria, No Retention, No Other Musculoskeletal: No other, No neck pain, No shoulder pain, No arm pain; back pain (flank pain); No hand pain, No leg pain, No foot pain Skin: No Rash, No Lesions, No Jaundice, No Bruising, No Other Objective Vitals Vital Signs Date Time Temp Pulse Resp B/P (MAP) Pulse Ox O2 Delivery O2 Flow Rate FiO2 07/31/24 07:35 135/84 07/31/24 05:00 98.2 73 18 97 98.2 07/30/24 20:00 Room Air* 0 21 Intake/Output Intake and Output 07/31/24 07:00 Intake Total 1390 ml Output Total 2275 ml Balance -885 ml Intake Oral 1390 ml Output Urine Total 2275 ml General Appearance: Alert, Oriented X3, Cooperative, No acute distress HEENT: Atraumatic, PERRLA, EOMI, Mucous membr. moist/pink Lungs: Clear to auscultation Cardiovascular: Regular rate, Normal S1, Normal S2, No murmurs, Gallops, Rubs Abdomen: Normal bowel sounds, Soft, No tenderness Neuro: Cranial nerves 3-12 NL Psych/Mental Status: Mental status NL Medications Current Medications Medications Dose Ordered Sig/Yves Route Start Time Stop Time Status Last Admin Dose Admin Acetaminophen/ Hydrocodone Bitart 1 tab Q4HP PRN PO 07/25/24 11:00 07/31/24 06:32 1 TAB Ondansetron HCl 4 mg Q4HP PRN IV 07/25/24 11:00 Docusate Sodium 100 mg BIDPRN PRN PO 07/25/24 11:00 Acetaminophen 650 mg Q6HP PRN PO 07/25/24 11:00 Metoprolol Succinate 100 mg DAILY PO 07/26/24 10:00 07/30/24 09:43 100 MG Gabapentin 100 mg TID PO 07/25/24 22:00 07/30/24 14:43 100 MG Morphine Sulfate 2 mg Q6HPRN PRN IV 07/27/24 19:45 07/30/24 23:14 2 MG Sodium Bicarbonate 50 ml/ Sodium Chloride 1,050 ml @ 70 mls/hr Q15H IV 07/29/24 09:15 07/30/24 05:51 70 MLS/HR Amlodipine Besylate 5 mg DAILY PO 07/29/24 10:00 07/30/24 09:43 5 MG Nitroglycerin 0.4 mg Q5MINP PRN SL 07/31/24 02:15 07/31/24 06:35 0.4 MG Morphine Sulfate 2 mg Q30M PRN IV 07/31/24 02:15 Sodium Chloride 10 ml Q8HR IV 07/31/24 06:00 07/31/24 05:28 10 ML Laboratory Results Laboratory Tests 07/26/24 04:49 07/31/24 01:00 Chemistry Test 07/31/24 01:00 Calcium Level 8.8 mg/dL (8.7-10.4) Labs and/or images reviewed: Labs reviewed by me Assessment/Plan Assessment/Plan SULEMAN (acute kidney injury) on CKD with no baseline creat to compare Hydronephrosis s/p nephrostomy tubes Bladder stones, Uncontrolled hypertension, Elevated troponin, Consult cardiology due to elevated troponins Echo ordered, we will follow up Urology planning on lithotripsy Appreciate nephrology input Continue Stuart, the patient reports the Stuart still leaking. We will discuss with urologist to see if the patient need the Stuart prior to discharge The patient is seen multiple stone sediment in his nephrostomy tube Morphine for pain control. This medical document was created using an electronic medical record system with [employer] computerized dictation system. Although this document has been carefully reviewed, there may still be some phonetic and typographical errors. These areas are purely typographical due to imperfections of the software programs, and do not reflect any compromise in the patient's medical care. Plan discussed with: Patient Date of Service: Jul 30, 2024 Billing Provider: ADAMARIS MORAN MD Common Visit Codes: [id number] INP/OBS CARE(HIGH) ADAMARIS MORAN MD Jul 31, 2024 08:28
[2024-07-31] MEDS ORDERED: hydrALAZINE HCL 20 MG/ML VL IV PRN (08:45)
--- NOTE | 2024-07-31 10:36 | DVHPN2 ---
Progress Note Date Seen: Jul 31, 2024 Has the PT tested + for MRSA If YES, has PT been informed?: No Medical Necessity Reason Pt with a Central, PICC or Fol: Yes The following are medically ne: Stuart Catheter Subjective Patient reports: No new complaints Other Systems: Patient seen and examined by myself today in follow-up Objective vital signs Vital Sign Date Time Temp Pulse Resp B/P (MAP) Pulse Ox O2 Delivery O2 Flow Rate FiO2 07/31/24 09:19 160/74 07/31/24 09:18 84 07/31/24 08:30 97.7 17 98 97.7 07/31/24 08:00 Room Air* 0 21 Total Intake and Output 07/30/24 07/30/24 07/31/24 15:00 23:00 07:00 Intake Total 240 ml 1000 ml 150 ml Output Total 650 ml 1325 ml 300 ml Balance -410 ml -325 ml -150 ml medications Current Medications Medications Dose Ordered Sig/Yves Route Start Time Stop Time Status Last Admin Dose Admin Acetaminophen/ Hydrocodone Bitart 1 tab Q4HP PRN PO 07/25/24 11:00 07/31/24 06:32 1 TAB Ondansetron HCl 4 mg Q4HP PRN IV 07/25/24 11:00 Docusate Sodium 100 mg BIDPRN PRN PO 07/25/24 11:00 Acetaminophen 650 mg Q6HP PRN PO 07/25/24 11:00 Metoprolol Succinate 100 mg DAILY PO 07/26/24 10:00 07/31/24 09:18 100 MG Gabapentin 100 mg TID PO 07/25/24 22:00 07/30/24 14:43 100 MG Morphine Sulfate 2 mg Q6HPRN PRN IV 07/27/24 19:45 07/30/24 23:14 2 MG Sodium Bicarbonate 50 ml/ Sodium Chloride 1,050 ml @ 70 mls/hr Q15H IV 07/29/24 09:15 07/30/24 05:51 70 MLS/HR Amlodipine Besylate 5 mg DAILY PO 07/29/24 10:00 07/31/24 09:19 5 MG Nitroglycerin 0.4 mg Q5MINP PRN SL 07/31/24 02:15 07/31/24 06:35 0.4 MG Morphine Sulfate 2 mg Q30M PRN IV 07/31/24 02:15 Sodium Chloride 10 ml Q8HR IV 07/31/24 06:00 07/31/24 05:28 10 ML Hydralazine HCl 10 mg Q6HP PRN IV 07/31/24 08:45 Examination: LUNGS:Normal, CVS:Normal, MSK:Normal laboratory and microbiology Laboratory Tests 07/31/24 01:00 07/26/24 04:49 Test 07/31/24 01:00 Range/Units Serum Glucose 105 74-106 mg/dL Problem List/Assessment/Plan Problem List/Assessment/Plan Acute kidney injury secondary to obstructive kidney disease. Chronic kidney disease unspecified baseline unknown Bilateral renal stones Bilateral hydronephrosis Bladder stones Chronic urinary retention with Stuart catheter hyperkalemia Anemia of chronic kidney disease Elevated troponin Metabolic acidosis Hypertension Recommendations kidney function stable Chronic Kidney Disease stage 4 Status post lithotripsy 07/27 Increase urine output Hyperkalemia resolved Renal diet IVF 1/2 NS with sodium bicarbonate 50 milliequivalent/liter at 75 cc/hour Amlodipine 5 mg p.o. q.day for blood pressure control Will continue to follow Plan discussed with: Patient Dietary Evaluation Review Comments: 1) Encourage optimal PO intake 2) Follow-up with urology, nephrology, and cardiology 3) Follow-up with social media content manager r/t methamphetamine abuse 4) Continue to monitor I&O, labs, and skin integrity Expected Outcomes/Goals: 1) appetite and labs to improve 2) f/u in 3-5 days SHADY KEATING MD Jul 31, 2024 10:36
--- NOTE | 2024-07-31 11:58 | DVHPN2 ---
Subjective The patient is seen and examined at bedside. Pain is better controlled today with morphine and [place]. Waiting for nephrostogram. Reviewed: Care Plan, H&P, Labs, Medications, Previous Orders, Radiology Changes from previous H/P or p: No Changes Eyes: No Pain, No Vision change, No Conjunctivae inflammation, No Eyelid inflammation, No Other, No Redness ENT: No Ear pain, No Ear discharge, No Nose pain, No Nose discharge, No Nose congestion, No Mouth pain, No Mouth swelling, No Throat pain, No Throat swelling, No Other Cardiovascular: No Chest Pain, No Palpitations, No Orthopnea, No Paroxysmal Noc. Dyspnea, No Edema, No Lt Headedness; Other (hypertension) Respiratory: No Cough, No Dry, No Shortness of breath, No SOB with excertion, No Wheezing, No Hemoptysis, No Pleuritic Pain, No Sputum, No Other Gastrointestinal: No Nausea, No Vomiting; Abdominal Pain; No Diarrhea, No Constipation, No Melena, No Hematochezia, No Other Genitourinary: No Dysuria, No Frequency, No Incontinence, No Hematuria, No Retention, No Other Musculoskeletal: No other, No neck pain, No shoulder pain, No arm pain; back pain (flank pain); No hand pain, No leg pain, No foot pain Skin: No Rash, No Lesions, No Jaundice, No Bruising, No Other Objective Vitals Vital Signs Date Time Temp Pulse Resp B/P (MAP) Pulse Ox O2 Delivery O2 Flow Rate FiO2 07/31/24 09:19 160/74 07/31/24 09:18 84 07/31/24 08:30 97.7 17 98 97.7 07/31/24 08:00 Room Air* 0 21 Intake/Output Intake and Output 07/31/24 07:00 Intake Total 1390 ml Output Total 2275 ml Balance -885 ml Intake Oral 1390 ml Output Urine Total 2275 ml General Appearance: Alert, Oriented X3, Cooperative, No acute distress HEENT: Atraumatic, PERRLA, EOMI, Mucous membr. moist/pink Lungs: Clear to auscultation Cardiovascular: Regular rate, Normal S1, Normal S2, No murmurs, Gallops, Rubs Abdomen: Normal bowel sounds, Soft, No tenderness Neuro: Cranial nerves 3-12 NL Psych/Mental Status: Mental status NL Medications Current Medications Medications Dose Ordered Sig/Yves Route Start Time Stop Time Status Last Admin Dose Admin Acetaminophen/ Hydrocodone Bitart 1 tab Q4HP PRN PO 07/25/24 11:00 07/31/24 06:32 1 TAB Ondansetron HCl 4 mg Q4HP PRN IV 07/25/24 11:00 Docusate Sodium 100 mg BIDPRN PRN PO 07/25/24 11:00 Acetaminophen 650 mg Q6HP PRN PO 07/25/24 11:00 Metoprolol Succinate 100 mg DAILY PO 07/26/24 10:00 07/31/24 09:18 100 MG Gabapentin 100 mg TID PO 07/25/24 22:00 07/30/24 14:43 100 MG Morphine Sulfate 2 mg Q6HPRN PRN IV 07/27/24 19:45 07/30/24 23:14 2 MG Sodium Bicarbonate 50 ml/ Sodium Chloride 1,050 ml @ 70 mls/hr Q15H IV 07/29/24 09:15 07/30/24 05:51 70 MLS/HR Amlodipine Besylate 5 mg DAILY PO 07/29/24 10:00 07/31/24 09:19 5 MG Nitroglycerin 0.4 mg Q5MINP PRN SL 07/31/24 02:15 07/31/24 06:35 0.4 MG Morphine Sulfate 2 mg Q30M PRN IV 07/31/24 02:15 Sodium Chloride 10 ml Q8HR IV 07/31/24 06:00 07/31/24 05:28 10 ML Hydralazine HCl 10 mg Q6HP PRN IV 07/31/24 08:45 Laboratory Results Laboratory Tests 07/26/24 04:49 07/31/24 01:00 Chemistry Test 07/31/24 01:00 Calcium Level 8.8 mg/dL (8.7-10.4) Labs and/or images reviewed: Labs reviewed by me Assessment/Plan Assessment/Plan SULEMAN (acute kidney injury) on CKD with no baseline creat to compare Hydronephrosis s/p nephrostomy tubes Bladder stones, Uncontrolled hypertension, Elevated troponin, Consult cardiology due to elevated troponins Echo ordered, we will follow up Urology planning on lithotripsy Appreciate nephrology input Continue Stuart, the patient reports the Stuart still leaking. We will discuss with urologist to see if the patient need the Stuart prior to discharge The patient is seen multiple stone sediment in his nephrostomy tube Morphine and norco for pain control. Waiting for nephrostogram to be done today. Discharge planning. This medical document was created using an electronic medical record system with [employer] computerized dictation system. Although this document has been carefully reviewed, there may still be some phonetic and typographical errors. These areas are purely typographical due to imperfections of the software programs, and do not reflect any compromise in the patient's medical care. Plan discussed with: Patient My Orders Orders - ADAMARIS MORAN MD Procedure Category Date Status Time Hydralazine Injection PHA 07/31/24 In Process (Apresoline Inject 08:45 Date of Service: Jul 31, 2024 Billing Provider: ADAMARIS MORAN MD Common Visit Codes: [id number] INP/OBS CARE(HIGH) ADAMARIS MORAN MD Jul 31, 2024 11:58
[2024-07-31] MEDS ORDERED: IOHEXOL 300 MG/ML 100ML BOTTLE IJ ONE (14:15)
--- NOTE | 2024-07-31 15:31 | DVH ---
XY ANTEGRADE NEPHROSTOGRAM HISTORY: Right PNT in situ COMPARISON: None PROCEDURE: A dispensing optician film was obtained prior to the procedure. For the purposes of performing a nephros lay tube check, contrast was administered through the right nephrostomy tube and sequential images were obtained via fluoroscopy. Total fluoroscopy time was 0.7 minutes. FINDINGS: The initial dispensing optician film revealed a right nephrostomy tube in place. The contrast injected through the percutaneous nephrostomy tube is seen entering the right nephrostomy tube into the renal pelvis and u reter. No contrast is seen going into the bladder. Contrast ends at the UVJ. The nephrostomy tube is in good positioning. IMPRESSION: No contrast seen going into the urinary bladder with contrast seen in the renal pelvis and ureter.
[2024-08-01] VITALS (7 sets, daily range): BP systolic 140–176; BP diastolic 79–100; PULSE 69–97; RESP 17–18; TEMP 97.5–98.8; O2SAT 98–100
[2024-08-01] MEDS ORDERED: NITROGLYCERIN 0.4 MG SL TAB SL ONE (06:05)
[2024-08-01 07:34] LABS: Anion Gap 10 (5-15); Calcium 9.7 mg/dL (8.7-10.4); Carbon Dioxide 21 mmol/L (20-31); Potassium 4.8 mmol/L (3.5-5.1); Sodium 141 mmol/L (136-145)
[2024-08-01 07:36] LABS: Chloride 110 mmol/L (98-107)
[2024-08-01 07:39] LABS: Glucose 93 mg/dL (74-106)
[2024-08-01 07:40] LABS: Blood Urea Nitrogen 44 mg/dL (9-23)
--- NOTE | 2024-08-01 09:43 | DVHPN2 ---
Progress Note - Dictate Date Seen: Aug 01, 2024 Has the PT tested + for MRSA If YES, has PT been informed?: No Medical Necessity Reason Pt with a Central, PICC or Fol: Yes The following are medically ne: Stuart Catheter Medical Necessity Reason Patient has a right nephrostomy tube in-situ Subjective Stuart catheter was removed vital signs Vital Sign Date Time Temp Pulse Resp B/P (MAP) Pulse Ox O2 Delivery O2 Flow Rate FiO2 08/01/24 09:27 169/95 08/01/24 09:27 89 08/01/24 05:00 98.0 18 100 98.0 07/31/24 20:00 Room Air* 0 21 Total Intake and Output 07/31/24 07/31/24 08/01/24 15:00 23:00 07:00 Intake Total 908 ml 625 ml Output Total 1426 ml 625 ml Balance -518 ml 0 ml medications Current Medications Medications Dose Ordered Sig/Yves Route Start Time Stop Time Status Last Admin Dose Admin Acetaminophen/ Hydrocodone Bitart 1 tab Q4HP PRN PO 07/25/24 11:00 08/01/24 06:10 1 TAB Ondansetron HCl 4 mg Q4HP PRN IV 07/25/24 11:00 Docusate Sodium 100 mg BIDPRN PRN PO 07/25/24 11:00 Acetaminophen 650 mg Q6HP PRN PO 07/25/24 11:00 Metoprolol Succinate 100 mg DAILY PO 07/26/24 10:00 08/01/24 09:27 100 MG Gabapentin 100 mg TID PO 07/25/24 22:00 07/30/24 14:43 100 MG Morphine Sulfate 2 mg Q6HPRN PRN IV 07/27/24 19:45 07/30/24 23:14 2 MG Sodium Bicarbonate 50 ml/ Sodium Chloride 1,050 ml @ 70 mls/hr Q15H IV 07/29/24 09:15 07/30/24 05:51 70 MLS/HR Amlodipine Besylate 5 mg DAILY PO 07/29/24 10:00 08/01/24 09:27 5 MG Nitroglycerin 0.4 mg Q5MINP PRN SL 07/31/24 02:15 07/31/24 06:35 0.4 MG Morphine Sulfate 2 mg Q30M PRN IV 07/31/24 02:15 Sodium Chloride 10 ml Q8HR IV 07/31/24 06:00 08/01/24 09:27 10 ML Hydralazine HCl 10 mg Q6HP PRN IV 07/31/24 08:45 objective Right nephrostogram shows tortuous ureter with the obstructive uropathy. laboratory and microbiology Laboratory Tests 08/01/24 06:51 07/26/24 04:49 Test 08/01/24 06:51 Range/Units Serum Glucose 93 74-106 mg/dL Problem List Bladder stones- resolved Bilateral hydronephrosis- s/p right PNT YOUNG Assessment/Plan Patient will need right ureteroscopic evaluation and stent placement and TURP PSA Dietary Evaluation Review Comments: 1) Encourage optimal PO intake 2) Follow-up with urology, nephrology, and cardiology 3) Follow-up with social welfare research worker r/t methamphetamine abuse 4) Continue to monitor I&O, labs, and skin integrity Expected Outcomes/Goals: 1) appetite and labs to improve 2) f/u in 3-5 days Plan discussed with: Patient, Other JANA OSMAN MD Aug 01, 2024 09:43
--- NOTE | 2024-08-01 11:09 | DVHPN2 ---
Subjective The patient is seen and examined at bedside. Pain is better controlled today with morphine and [place] Reviewed: Care Plan, H&P, Labs, Medications, Previous Orders, Radiology Changes from previous H/P or p: No Changes Eyes: No Pain, No Vision change, No Conjunctivae inflammation, No Eyelid inflammation, No Other, No Redness ENT: No Ear pain, No Ear discharge, No Nose pain, No Nose discharge, No Nose congestion, No Mouth pain, No Mouth swelling, No Throat pain, No Throat swelling, No Other Cardiovascular: No Chest Pain, No Palpitations, No Orthopnea, No Paroxysmal Noc. Dyspnea, No Edema, No Lt Headedness; Other (hypertension) Respiratory: No Cough, No Dry, No Shortness of breath, No SOB with excertion, No Wheezing, No Hemoptysis, No Pleuritic Pain, No Sputum, No Other Gastrointestinal: No Nausea, No Vomiting; Abdominal Pain; No Diarrhea, No Constipation, No Melena, No Hematochezia, No Other Genitourinary: No Dysuria, No Frequency, No Incontinence, No Hematuria, No Retention, No Other Musculoskeletal: No other, No neck pain, No shoulder pain, No arm pain; back pain (flank pain); No hand pain, No leg pain, No foot pain Skin: No Rash, No Lesions, No Jaundice, No Bruising, No Other Objective Vitals Vital Signs Date Time Temp Pulse Resp B/P (MAP) Pulse Ox O2 Delivery O2 Flow Rate FiO2 08/01/24 10:11 164/91 08/01/24 09:27 89 08/01/24 05:00 98.0 18 100 98.0 07/31/24 20:00 Room Air* 0 21 Intake/Output Intake and Output 08/01/24 07:00 Intake Total 1533 ml Output Total 2051 ml Balance -518 ml Intake Oral 1533 ml Output Urine Total 2050 ml Stool Total 1 ml General Appearance: Alert, Oriented X3, Cooperative, No acute distress HEENT: Atraumatic, PERRLA, EOMI, Mucous membr. moist/pink Lungs: Clear to auscultation Cardiovascular: Regular rate, Normal S1, Normal S2, No murmurs, Gallops, Rubs Abdomen: Normal bowel sounds, Soft, No tenderness Neuro: Cranial nerves 3-12 NL Psych/Mental Status: Mental status NL Medications Current Medications Medications Dose Ordered Sig/Yves Route Start Time Stop Time Status Last Admin Dose Admin Acetaminophen/ Hydrocodone Bitart 1 tab Q4HP PRN PO 07/25/24 11:00 08/01/24 09:37 1 TAB Ondansetron HCl 4 mg Q4HP PRN IV 07/25/24 11:00 Docusate Sodium 100 mg BIDPRN PRN PO 07/25/24 11:00 Acetaminophen 650 mg Q6HP PRN PO 07/25/24 11:00 Metoprolol Succinate 100 mg DAILY PO 07/26/24 10:00 08/01/24 09:27 100 MG Gabapentin 100 mg TID PO 07/25/24 22:00 07/30/24 14:43 100 MG Morphine Sulfate 2 mg Q6HPRN PRN IV 07/27/24 19:45 07/30/24 23:14 2 MG Sodium Bicarbonate 50 ml/ Sodium Chloride 1,050 ml @ 70 mls/hr Q15H IV 07/29/24 09:15 07/30/24 05:51 70 MLS/HR Amlodipine Besylate 5 mg DAILY PO 07/29/24 10:00 08/01/24 09:27 5 MG Nitroglycerin 0.4 mg Q5MINP PRN SL 07/31/24 02:15 08/01/24 10:11 0.4 MG Morphine Sulfate 2 mg Q30M PRN IV 07/31/24 02:15 Sodium Chloride 10 ml Q8HR IV 07/31/24 06:00 08/01/24 09:27 10 ML Hydralazine HCl 10 mg Q6HP PRN IV 07/31/24 08:45 Laboratory Results Laboratory Tests 07/26/24 04:49 08/01/24 06:51 Chemistry Test 08/01/24 06:51 Calcium Level 9.7 mg/dL (8.7-10.4) Assessment/Plan Assessment/Plan SULEMAN (acute kidney injury) on CKD with no baseline creat to compare Hydronephrosis s/p nephrostomy tubes Bladder stones, Uncontrolled hypertension, Elevated troponin, Consult cardiology due to elevated troponins Echo ordered, we will follow up Urology planning on lithotripsy Appreciate nephrology input Continue Stuart, the patient reports the Stuart still leaking. We will discuss with urologist to see if the patient need the Stuart prior to discharge The patient is seen multiple stone sediment in his nephrostomy tube Morphine for pain control. Per Urologist, the patient will need: right ureteroscopic evaluation and stent placement and TURP Discharge planning when clear by urologist and school of nursing director. Continue IV with Bicarb and norvasc for blood pressure control. This medical document was created using an electronic medical record system with [employer] direct computerized dictation system. Although this document has been carefully reviewed, there may still be some phonetic and typographical errors. These areas are purely typographical due to imperfections of the software programs, and do not reflect any compromise in the patient's medical care. Plan discussed with: Patient Date of Service: Aug 01, 2024 Billing Provider: ADAMARIS MORAN MD Common Visit Codes: [id number] INP/OBS CARE(HIGH) ADAMARIS MORAN MD Aug 01, 2024 11:09
--- NOTE | 2024-08-01 11:42 | DVHPN2 ---
Progress Note Date Seen: Aug 01, 2024 Has the PT tested + for MRSA If YES, has PT been informed?: No Medical Necessity Reason Pt with a Central, PICC or Fol: Yes The following are medically ne: Stuart Catheter Subjective Patient reports: No new complaints Other Systems: Patient seen and examined by myself today in follow-up Objective vital signs Vital Sign Date Time Temp Pulse Resp B/P (MAP) Pulse Ox O2 Delivery O2 Flow Rate FiO2 08/01/24 10:11 164/91 08/01/24 09:27 89 08/01/24 05:00 98.0 18 100 98.0 07/31/24 20:00 Room Air* 0 21 Total Intake and Output 07/31/24 07/31/24 08/01/24 15:00 23:00 07:00 Intake Total 908 ml 625 ml Output Total 1426 ml 625 ml Balance -518 ml 0 ml medications Current Medications Medications Dose Ordered Sig/Yves Route Start Time Stop Time Status Last Admin Dose Admin Acetaminophen/ Hydrocodone Bitart 1 tab Q4HP PRN PO 07/25/24 11:00 08/01/24 09:37 1 TAB Ondansetron HCl 4 mg Q4HP PRN IV 07/25/24 11:00 Docusate Sodium 100 mg BIDPRN PRN PO 07/25/24 11:00 Acetaminophen 650 mg Q6HP PRN PO 07/25/24 11:00 Metoprolol Succinate 100 mg DAILY PO 07/26/24 10:00 08/01/24 09:27 100 MG Gabapentin 100 mg TID PO 07/25/24 22:00 07/30/24 14:43 100 MG Morphine Sulfate 2 mg Q6HPRN PRN IV 07/27/24 19:45 07/30/24 23:14 2 MG Sodium Bicarbonate 50 ml/ Sodium Chloride 1,050 ml @ 70 mls/hr Q15H IV 07/29/24 09:15 07/30/24 05:51 70 MLS/HR Amlodipine Besylate 5 mg DAILY PO 07/29/24 10:00 08/01/24 09:27 5 MG Nitroglycerin 0.4 mg Q5MINP PRN SL 07/31/24 02:15 08/01/24 10:11 0.4 MG Morphine Sulfate 2 mg Q30M PRN IV 07/31/24 02:15 Sodium Chloride 10 ml Q8HR IV 07/31/24 06:00 08/01/24 09:27 10 ML Hydralazine HCl 10 mg Q6HP PRN IV 07/31/24 08:45 Examination: LUNGS:Normal, CVS:Normal, MSK:Normal laboratory and microbiology Laboratory Tests 08/01/24 06:51 07/26/24 04:49 Test 08/01/24 06:51 Range/Units Serum Glucose 93 74-106 mg/dL Problem List/Assessment/Plan Problem List/Assessment/Plan Acute kidney injury secondary to obstructive kidney disease. Chronic kidney disease unspecified baseline unknown Bilateral renal stones Bilateral hydronephrosis Bladder stones Chronic urinary retention with Stuart catheter hyperkalemia Anemia of chronic kidney disease Elevated troponin Metabolic acidosis Hypertension Recommendations kidney function stable Chronic Kidney Disease stage 4 Status post lithotripsy 07/27 Increase urine output Hyperkalemia resolved Renal diet IVF 1/2 NS with sodium bicarbonate 50 milliequivalent/liter at 75 cc/hour Amlodipine 5 mg p.o. q.day for blood pressure control Will continue to follow Plan discussed with: Patient My Orders My Orders Orders - SHADY KEATING MD Procedure Category Date Status Time Communication Order ORDERS 08/01/24 Transmitted 10:18 Dietary Evaluation Review Comments: 1) Encourage optimal PO intake 2) Follow-up with urology, nephrology, and cardiology 3) Follow-up with director social welfare r/t methamphetamine abuse 4) Continue to monitor I&O, labs, and skin integrity Expected Outcomes/Goals: 1) appetite and labs to improve 2) f/u in 3-5 days SHADY KEATING MD Aug 01, 2024 11:42
[2024-08-02 08:00] VITALS: PULSE 71; RESP 20; O2SAT 97
[2024-08-02 08:07] LABS: PSA Free 0.76 ng/mL; Prostate Specific Antigen 4.4 ng/mL (0.0-4.0)
[2024-08-02 09:00] VITALS: BP 164/92; PULSE 71; RESP 20; TEMP 98.7; O2SAT 97
[2024-08-02 09:43] LABS: Potassium 4.5 mmol/L (3.5-5.1); Sodium 140 mmol/L (136-145)
[2024-08-02 09:44] LABS: Anion Gap 10 (5-15); Calcium 9.4 mg/dL (8.7-10.4); Carbon Dioxide 21 mmol/L (20-31)
[2024-08-02 09:45] LABS: Chloride 109 mmol/L (98-107)
[2024-08-02 09:49] LABS: BUN/Creatinine Ratio 17.2 (10.0-20.0)
[2024-08-02 09:50] LABS: Blood Urea Nitrogen 47 mg/dL (9-23); Glucose 120 mg/dL (74-106)
[2024-08-02 11:03] LABS: Basophils # (auto) 0 10 ^3/uL (0-0.2); Basophils % (auto) 0.7 % (0.0-2.0); Eosinophils # (auto) 0.3 10 ^3/uL (0-0.8); Hemoglobin 10.4 g/dL (13.5-17.5); Lymphocytes # (auto) 1.1 10 ^3/uL (0.4-5.4); Lymphocytes % (auto) 17.1 % (10.0-50.0); Mean Corpuscular Hemoglobin 23.9 pg (28.0-32.0); Mean Corpuscular Hgb Conc. 31.5 g/dL (32.0-36.0); Mean Corpuscular Volume 75.8 fL (80.0-100.0); Monocytes # (auto) 0.4 10 ^3/uL (0-1.3); Neutrophils # (auto) 4.7 10 ^3/uL (1.6-8.6); Neutrophils % (auto) 71.2 % (37.0-80.0); Nucleated Red Blood Cells % 0.1 %; Platelet Count (auto) 267 10^3/uL (140-450); Red Blood Cells 4.35 10^6/uL (4.5-5.90); Red Cell Distribution Width 24.8 % (11.8-14.3); White Blood Cell 6.7 10^3/uL (4.4-10.8)
[2024-08-02 12:09] VITALS: RESP 18
--- NOTE | 2024-08-02 12:30 | DVHPN2 ---
Progress Note Date Seen: Aug 02, 2024 Has the PT tested + for MRSA If YES, has PT been informed?: No Medical Necessity Reason Pt with a Central, PICC or Fol: Yes The following are medically ne: Stuart Catheter Subjective Patient reports: No new complaints Other Systems: Patient seen and examined by myself today in follow-up Objective vital signs Vital Sign Date Time Temp Pulse Resp B/P (MAP) Pulse Ox O2 Delivery O2 Flow Rate FiO2 08/02/24 11:39 64 18 152/66 08/02/24 09:00 98.7 97 98.7 08/02/24 08:00 Room Air* 0 21 Total Intake and Output 08/01/24 08/01/24 08/02/24 15:00 23:00 07:00 Intake Total 525 ml 900 ml Output Total 500 ml 2150 ml Balance 25 ml -1250 ml medications Current Medications Medications Dose Ordered Sig/Yves Route Start Time Stop Time Status Last Admin Dose Admin Acetaminophen/ Hydrocodone Bitart 1 tab Q4HP PRN PO 07/25/24 11:00 08/02/24 04:03 1 TAB Ondansetron HCl 4 mg Q4HP PRN IV 07/25/24 11:00 Docusate Sodium 100 mg BIDPRN PRN PO 07/25/24 11:00 Acetaminophen 650 mg Q6HP PRN PO 07/25/24 11:00 Metoprolol Succinate 100 mg DAILY PO 07/26/24 10:00 08/02/24 09:21 100 MG Gabapentin 100 mg TID PO 07/25/24 22:00 07/30/24 14:43 100 MG Morphine Sulfate 2 mg Q6HPRN PRN IV 07/27/24 19:45 08/02/24 11:39 2 MG Sodium Bicarbonate 50 ml/ Sodium Chloride 1,050 ml @ 70 mls/hr Q15H IV 07/29/24 09:15 08/01/24 15:02 70 MLS/HR Amlodipine Besylate 5 mg DAILY PO 07/29/24 10:00 08/02/24 09:21 5 MG Nitroglycerin 0.4 mg Q5MINP PRN SL 07/31/24 02:15 08/01/24 10:11 0.4 MG Morphine Sulfate 2 mg Q30M PRN IV 07/31/24 02:15 Sodium Chloride 10 ml Q8HR IV 07/31/24 06:00 08/01/24 22:01 10 ML Hydralazine HCl 10 mg Q6HP PRN IV 07/31/24 08:45 Examination: LUNGS:Normal, CVS:Normal, MSK:Abnormal laboratory and microbiology Laboratory Tests 08/02/24 09:09 Test 08/02/24 09:09 Range/Units Serum Glucose 120 H 74-106 mg/dL Problem List/Assessment/Plan Problem List/Assessment/Plan Acute kidney injury secondary to obstructive kidney disease. Chronic kidney disease unspecified baseline unknown Bilateral renal stones Bilateral hydronephrosis Bladder stones Chronic urinary retention with Stuart catheter hyperkalemia Anemia of chronic kidney disease Elevated troponin Metabolic acidosis Hypertension Recommendations kidney function stable Chronic Kidney Disease stage 4 Status post lithotripsy 07/27 Increase urine output Hyperkalemia resolved Renal diet IVF 1/2 NS with sodium bicarbonate 50 milliequivalent/liter at 75 cc/hour Amlodipine 5 mg p.o. q.day for blood pressure control Will continue to follow Plan discussed with: Patient Dietary Evaluation Review Comments: 1) Encourage optimal PO intake 2) Follow-up with urology, nephrology, and cardiology 3) Follow-up with social science manager r/t methamphetamine abuse 4) Continue to monitor I&O, labs, and skin integrity Expected Outcomes/Goals: 1) appetite and labs to improve 2) f/u in 3-5 days SHADY KEATING MD Aug 02, 2024 12:30
[2024-08-02] MEDS: ACETAMINOPHEN 325 MG TAB PO PRN (13:21)
[2024-08-02] MEDS ORDERED: AMLO1TAB23 PO (15:17)
--- NOTE | 2024-08-02 16:15 | DVHDS2 ---
Discharge Summary Date of Admission Jul 25, 2024 at 10:55 Date of Discharge: Aug 02, 2024 Labs/Diagnostic Data: Laboratory Results Test 08/02/24 09:09 08/01/24 06:51 07/31/24 06:21 07/28/24 16:05 White Blood Count 6.7 10^3/uL (4.4-10.8) Red Blood Count 4.35 10^6/uL (4.5-5.90) Hemoglobin 10.4 g/dL (13.5-17.5) Hematocrit 33.0 % (41.0-53.0) Mean Corpuscular Volume 75.8 fL (80.0-100.0) Mean Corpuscular Hemoglobin 23.9 pg (28.0-32.0) Mean Corpuscular Hemoglobin Concent 31.5 g/dL (32.0-36.0) Red Cell Distribution Width 24.8 % (11.8-14.3) Platelet Count 267 10^3/uL (140-450) Mean Platelet Volume 6.9 fL (6.9-10.8) Neutrophils (%) (Auto) 71.2 % (37.0-80.0) Lymphocytes (%) (Auto) 17.1 % (10.0-50.0) Monocytes (%) (Auto) 6.0 % (0.0-12.0) Eosinophils (%) (Auto) 5.0 % (0.0-7.0) Basophils (%) (Auto) 0.7 % (0.0-2.0) Neutrophils # (Auto) 4.7 10 ^3/uL (1.6-8.6) Lymphocytes # (Auto) 1.1 10 ^3/uL (0.4-5.4) Monocytes # (Auto) 0.4 10 ^3/uL (0-1.3) Eosinophils # (Auto) 0.3 10 ^3/uL (0-0.8) Basophils # (Auto) 0 10 ^3/uL (0-0.2) Nucleated Red Blood Cells 0.1 % Sodium Level 140 mmol/L (136-145) Potassium Level 4.5 mmol/L (3.5-5.1) Chloride Level 109 mmol/L (98-107) Carbon Dioxide Level 21 mmol/L (20-31) Anion Gap 10 (5-15) Blood Urea Nitrogen 47 mg/dL (9-23) Creatinine 2.74 mg/dL (0.700-1.30) Glomerular Filtration Rate Calc 25 mL/min (>90) BUN/Creatinine Ratio 17.2 (10.0-20.0) Serum Glucose 120 mg/dL (74-106) Calcium Level 9.4 mg/dL (8.7-10.4) Free Prostate Specific Antigen 0.76 ng/mL (N/A) Percent Free Prostate Specific Ag 17.3 % (.) Prostate Specific Antigen Total 4.4 ng/mL (0.0-4.0) Troponin I High Sensitivity 79 ng/L (</=54) Test 07/28/24 08:37 07/27/24 06:00 07/26/24 04:49 Phosphorus Level 3.8 mg/dL (2.4-5.1) Vitamin D 25-Hydroxy 26.9 ng/mL (30.0-100) Parathyroid Hormone (Intact) 273.1 pg/mL (18.4-80.1) Urine Opiates Screen Pos (NEGATIVE) Urine Fentanyl Screen Neg (NEGATIVE) Urine Barbiturates Screen Neg (NEGATIVE) Urine Phencyclidine Screen Neg (NEGATIVE) Urine Amphetamines Screen Neg (NEGATIVE) Urine Benzodiazepines Screen Neg (NEGATIVE) Urine Cocaine Screen Neg (NEGATIVE) Urine Cannabinoids Screen Neg (NEGATIVE) Platelet Estimate Adequate Hypochromasia (manual) Moderate Poikilocytosis (manual) Slight Anisocytosis (manual) Moderate Microcytosis Moderate Target Cells Few Ovalocytes Few Schistocytes Few Total Bilirubin 0.2 mg/dL (0.2-1.0) Aspartate Amino Transferase (AST) 43 U/L (<34) Alanine Aminotransferase (ALT) 49 U/L (7-40) Alkaline Phosphatase 130 U/L (46-116) Total Protein 6.7 g/dL (5.7-8.2) Albumin 4.0 g/dL (3.2-4.8) Other Laboratory Tests 08/02/24 09:09 Brief Hx & Hospital Course: History of Present Illness Jose Luis Murrell is a 63-year-old male with past medical history of hypertension, CHF, bladder stones, and methamphetamine use who was admitted to the hospital for SULEMAN, left AMA yesterday, and came back this morning. The patient has bilateral hydronephrosis with a nephrostomy tube placed yesterday. Patient will be admitted, and I will reconsult nephrology and urology. Troponin is elevated, likely due to kidney impairment. summary: Patient presented with elevated creatinine and on imaging found to have bilateral hydronephrosis. Patient has ESWL and urology procedure resulting in right nephrostomy tube placement. Patient is found to have bladder stones as well. Patient has CKD creatinine is at baseline. Found to have mild Troponinemia likely due to SULEMAN. Cardiology was consulted and determine troponins from type 2 likely. Echo was done confirming HFrEF with global wall hypokinesis patient will follow up with Cardiology outpatient. Nephrology is following and okay with discharge with outpatient follow up. 08/02/2024 patient is stable vitals stable patient is stable for discharge as per plan below. Diagnosis: Bilateral hydronephrosis- s/p right PNT s/p Right nephrostomy tube Bladder stones- resolved Multiple bladder calculi - resolved Acute kidney injury secondary to obstructive kidney disease Chronic kidney disease unspecified baseline unknown hyperkalemia, resolved Anemia of chronic kidney disease Elevated troponin Metabolic acidosis NSTEMI, likely type II Acute on chronic HFrEF, NYHA class III Cardiomyopathy, likely drug-induced Moderate tricuspid insufficiency Uncontrolled hypertension Transaminitis Polysubstance use Medical noncompliance Discharge plan: - Start amlodipine 10 mg, - Continue finasteride 5 mg daily, folic acid 1 mg daily, furosemide 40 mg daily, gabapentin 100 mg 3 times daily, metoprolol 100 mg daily, tamsulosin 0.4 mg daily - stop doxycycline, nifedipine, sodium bicarbonate - low-salt diet, fluids only maximum 1.5 L per day - Follow up with Urology 1-2 weeks - Follow up with Cardiology - follow up with PCP to review discharge Condition at Discharge: Fair Final Diagnosis/Problems List Bilateral hydronephrosis- s/p right PNT s/p Right nephrostomy tube Bladder stones- resolved Multiple bladder calculi - resolved Acute kidney injury secondary to obstructive kidney disease. Chronic kidney disease unspecified baseline unknown hyperkalemia, resolved Anemia of chronic kidney disease Elevated troponin Metabolic acidosis NSTEMI, likely type II Acute on chronic HFrEF, NYHA class III Cardiomyopathy, likely drug-induced Moderate tricuspid insufficiency Uncontrolled hypertension, Transaminitis Polysubstance use Medical noncompliance Discharge Disposition: Home Discharge Instruct/Medications Diet: Cardiac 2g Na,low cholest Activity: No Restrictions, As Tolerated Follow Up/Referral: See below Medications: See below Discharge Statement: "Patient was advised to return to the ER or call 911 if any headaches, dizziness, shortness of breath, chest pain, abdominal pain, bleeding, fevers, or worsening of medical condition. Patient was counseled about treatment plan, medications, possible side effects, patientverbalized understanding. All questions were answered to the best of my ability. This discharge took greater then 30 minutes in planning, reviewing documentation, counseling the patient, and discussing with other team members." ASSESSMENT ASSESSMENT Assessment Bilateral hydronephrosis- s/p right PNT s/p Right nephrostomy tube Bladder stones- resolved Multiple bladder calculi - resolved Acute kidney injury secondary to obstructive kidney disease. Chronic kidney disease unspecified baseline unknown hyperkalemia, resolved Anemia of chronic kidney disease Elevated troponin Metabolic acidosis NSTEMI, likely type II Acute on chronic HFrEF, NYHA class III Cardiomyopathy, likely drug-induced Moderate tricuspid insufficiency Uncontrolled hypertension, Transaminitis Polysubstance use Medical noncompliance Date of Service: Aug 02, 2024 Billing Provider: JUANJOSE WARD MD Common Visit Codes: [id number] DISCH DAY >30min JUANJOSE WARD MD Aug 02, 2024 16:15
[2024-08-02 18:37] VITALS: BP 164/92; PULSE 71; TEMP 37.1
== END 2024-08-02 19:10 | disposition home or self-care (01) | DRG 465 ==
LOC: EDBD 06:38 → ER 06:38 → OVERFLOW 10:55 → CENTRAL 20:34 → TELE-CENTR 07-31 02:30
PROVIDERS: ADMIT Student in an Organized Health Care Education/Training Program; ATTEND Student in an Organized Health Care Education/Training Program
PROC: 0TFBXZZ Fragmentation in Bladder, External Approach (ICD-10-PCS; 2024-07-27)
PROC: 0TCB8ZZ Extirpation of Matter from Bladder, Via Natural or Artificial Opening Endoscopic (ICD-10-PCS; principal; 2024-07-27 13:50)
PROC: BT111ZZ Fluoroscopy of Right Kidney using Low Osmolar Contrast (ICD-10-PCS; 2024-07-31)
DX: N21.0 Calculus in bladder (principal); I21.A1 Myocardial infarction type 2; I50.23 Acute on chronic systolic (congestive) heart failure; N17.9 Acute kidney failure, unspecified; E87.20 Acidosis, unspecified; D63.1 Anemia in chronic kidney disease; I42.9 Cardiomyopathy, unspecified; I13.0 Hypertensive heart and chronic kidney disease with heart failure and stage 1 through stage 4 chronic kidney disease, or unspecified chronic kidney disease; E83.51 Hypocalcemia; N13.39 Other hydronephrosis; N18.4 Chronic kidney disease, stage 4 (severe); F10.20 Alcohol dependence, uncomplicated; I07.1 Rheumatic tricuspid insufficiency; E87.5 Hyperkalemia; N32.0 Bladder-neck obstruction; F17.210 Nicotine dependence, cigarettes, uncomplicated; R74.01 Elevation of levels of liver transaminase levels; Z93.6 Other artificial openings of urinary tract status; Z59.00 Homelessness unspecified; Z91.199 Patient's noncompliance with other medical treatment and regimen due to unspecified reason; Z87.442 Personal history of urinary calculi; Z86.73 Personal history of transient ischemic attack (TIA), and cerebral infarction without residual deficits; Z83.3 Family history of diabetes mellitus; Z90.49 Acquired absence of other specified parts of digestive tract
CPT/HCPCS: 36415; 71045; 74176; 74425; 80048; 80053; 80307; 82306; 82360; 83970; 84100; 84154; 84484; 85025; 93005; 96365; 99291; G0378; J1885; J2250; J2405

== ENCOUNTER 2024-08-06 05:07 | Emergency (ER) | payer MEDICAID ==
[~2024-08-06] VITALS: Ht 170.2 cm; Wt 75.0 kg
[~2024-08-06 05:07] MED LIST changes: +AMLO1TAB23 PO; -CARV12.544 PO; -DOXY100C4 PO; +GAB100C PO; +METO1TAB9 PO; -NIFE90TA75 PO; -SODI650T PO
--- NOTE | 2024-08-06 07:09 | ED.PDOC ---
History of Present Illness HPI Comments 63-year-old male brought in by EMS presents with a chief complaint of flank pain x 3 days. Patient states that he was recently discharged from this facility after getting a nephrostomy tube placed due to kidney stones. Patient is now complaining of flank pain that he rates a 10/10 at this time. Chief Complaint: Flank Pain Time Seen by MD: 07:00 Reviewed Notes: Medications, Allergies Allergies: Coded Allergies: NO KNOWN ALLERGIES (Unverified , 07/20/24) Home Meds Active Scripts Amlodipine Besylate (Amlodipine Besylate) 10 Mg Tab, 1 TAB PO DAILY, #30 TAB 1 Refill Prov:JUANJOSE WARD MD 08/02/24 Reported Medications Folic Acid (Folic Acid) 1 Mg Tab, 1 TAB PO DAILY for 30 Days, #30 07/26/24 Tamsulosin Hcl (Tamsulosin Hcl) 0.4 Mg Cap, 1 PO DAILY for 30 Days, #30 07/26/24 Finasteride (Finasteride) 5 Mg Tab, 1 TAB PO DAILY for 30 Days, #30 07/26/24 Furosemide (Furosemide) 40 Mg Tab, 1 TAB PO DAILY for 30 Days, #30 07/26/24 Metoprolol Succinate (Metoprolol Succinate Er) 100 Mg Tab, 1 TAB PO DAILY 07/25/24 Gabapentin (Gabapentin) 100 Mg Cap, 1 CAP PO TID 07/25/24 Discontinued Reported Medications Sodium Bicarbonate (Sodium Bicarbonate) 650 Mg Tab, 1 TAB PO BID for 30 Days, #60 07/26/24 Nifedipine (Nifedipine Er) 90 Mg Tab, 1 TAB PO DAILY for 30 Days, #30 07/26/24 Doxycycline Hyclate (Doxycycline Hyclate) 100 Mg Cap, 1 CAP PO BID for 14 Days, #28 07/26/24 Information Source: Patient Mode of Arrival: EMS Severity: Moderate Timing: Days Duration: Since onset Prehospital treatment: None Past Medical History PAST MEDICAL HISTORY: CHF, CVA, HTN, Kidney Stones Surgical History: Cholecystectomy Family History Family History: Family hx of DM Social History Smoker: Cigarettes Alcohol: Occasionally Drugs: Marijuana Lives In: Home Constitutional: denies: chills, diaphoresis, fatigue, fever, malaise, sweats, weakness, others EENTM: denies: blurred vision, double vision, ear bleeding, ear discharge, ear drainage, ear pain, ear ringing, eye pain, eye redness, hearing loss, mouth pain, mouth swelling, nasal discharge, nose bleeding, nose congestion, nose pain, photophobia, tearing, throat pain, throat swelling, voice changes, others Respiratory: denies: cough, hemoptysis, orthopnea, SOB at rest, shortness of breath, SOB with excertion, stridor, wheezing, others Cardiovascular: denies: chest pain, dizzy spells, diaphoresis, Dyspnea on exertion, edema, irregular heart beat, left arm pain, lightheadedness, palpitations, PND, syncope, others Gastrointestinal: denies: abdomen distended, abdominal pain, blood streaked bowels, constipated, diarrhea, dysphagia, difficulty swallowing, hematemesis, melena, nausea, poor appetite, poor fluid intake, rectal bleeding, rectal pain, vomiting, others Genitourinary: reports: flank pain; denies: burning, dysuria, frequency, hematuria, incontinence, penile discharge, penile sore, pain, testicle pain, testicle swelling, urgency, others Neurological: denies: dizziness, fainting, headache, left sided numbness, left sided weakness, numbness, paresthesia, pre-existing deficit, right sided numbness, right sided weakness, seizure, speech problems, tingling, tremors, weakness, others Musculoskeletal: denies: back pain, gout, joint pain, joint swelling, muscle pain, muscle stiffness, neck pain, others Integumetry: denies: bruises, change in color, change in hair/nails, dryness, laceration, lesions, lumps, rash, wounds, others Allergic/Immunocompromised: denies: Difficulty Healing, Frequent Infections, Hives, Itching, others Hematologic/Lymphatic: denies: anemia, blood clots, easy bleeding, easy bruising, swollen glands, others Endocrine: denies: excessive hunger, excessive sweating, excessive thirst, excessive urination, flushing, intolerance to cold, intolerance to heat, unexp lained weight gain, unexplained weight loss, others Psychiatric: denies: anxiety, bipolar disorder, depression, hopeless, panic disorder, schizophrenia, sleepless, suicidal, others All Other Systems: Reviewed and Negative Physical Exam General Appearance: Moderate Distress, Normal HEENT: Normal ENT Inspection, Pharynx Normal, TMs Normal Neck: Full Range of Motion, Non-Tender, Normal, Normal Inspection Respiratory: Chest Non-Tender, Lungs Clear, No Accessory Muscle Use, No Respiratory Distress, Normal Breath Sounds Cardiovascular: No Edema, No JVD, No Murmur, No Gallop, Normal Peripheral Pulses, Regular Rate/Rhythm Breast Exam: Deferred Gastrointestinal: No Organomegaly, Non Tender, No Pulsatile Mass, Normal Bowel Sounds, Soft Genitalia: Deferred Pelvic: Deferred Rectal: Deferred Extremities: No calf tenderness, Normal capillary refill, Normal inspection, Normal range of motion, Non-tender, No pedal edema Musculoskeletal : Apperance: Normal Neurologic: Alert, protein purification scientist II-XII nml as Tested, No Motor Deficits, Normal Affect, Normal Mood, No Sensory Deficits Cerebellar Function: NOT DONE Reflexes: NOT DONE Skin: Dry, Normal Color, Warm Peripheral Pulses: 3+ Radial (R), 3+ Radial (L) Lymphatic: No Adenopathy Was a procedure done? Was a procedure done?: No Differential Dx Considerations may include: Kidney stone Urinary tract infection X-Ray, Labs, Meds, VS Vital Signs Date Time Temp Pulse Resp B/P (MAP) Pulse Ox O2 Delivery O2 Flow Rate FiO2 08/06/24 05:15 97.8 84 16 165/97 (119) 96 97.8 Patient alert. Came in because of urinary frequency. States that he has a history of kidney stones. Vitals stable. Reviewed his previous visit. Establish intravenous access. Was given fluids. Was given Toradol. Explained to the patient. Was told to follow up with his primary care physician. Was told to come back if there is any problem. Time of 1ST Reevaluation: 07:30 Reevaluation 1ST: Unchanged Patient Education/Counseling: Diagnosis, Treatment, Need For Follow Up Family Education/Counseling: No Family Present SEPSIS Sepsis Screen Date sepsis recognized/suspect: Aug 06, 2024 Time Sepsis recognized/suspect: 514 Recent Procedure: No On Antibiotic Therapy: No Respiratory Rate >20: No Heart Rate >90: No Temp<36 C (96.8 F) or >38.3 C: No SBP <90 or MAP <65 mmHG: No New Acute Mental Status Change: No Is the patient on CPAP, BIPAP,: No Physician Orders Urinalysis (08/06/24 07:02) Sodium Chloride 0.9% (08/06/24 07:15) Vital Signs Date Time Temp Pulse Resp B/P (MAP) Pulse Ox O2 Delivery O2 Flow Rate FiO2 08/06/24 05:15 97.8 84 16 165/97 (119) 96 97.8 Departure 1 Departure Time of Disposition: 07:16 Impression: Primary Impression: Pneumonitis Disposition: 01 HOME / SELF CARE / HOMELESS Condition: Good e-Prescriptions Amoxicillin Trihydrate (Amoxicillin) 500 Mg Cap 1 CAP PO TID for 7 Days, #21 CAP Prov: GUS RABAGO MD 08/06/24 Discharged With: Self Critical Care Note Critical Care Time?: No Stability Stability form required: No Heart Score Heart Score: Heart Score Response (Comments) Value History N/A 0 EKG N/A 0 Age N/A 0 Risk Factors N/A 0 Troponin N/A 0 Total 0 I personally scribed for GUS RABAGO MD ([email or web address]) on 08/06/24 at 07:09. Electronically submitted by Malcom Hurtado ([email or web address]). GUS RABAGO MD Aug 06, 2024 07:09
[2024-08-06] MEDS ORDERED: AMOX500C2 PO (07:18)
--- NOTE | 2024-08-06 07:53 | DVH ---
XY CHEST PORTABLE, HISTORY: cough COMPARISON: XY CHEST PORTABLE on DOS: 07/25/24 XY CHEST PORTABLE on DOS: 07/25/24 TECHNICAL DATA: 1 view of the chest was obtained. FINDINGS: Lines and tubes: Similar position of the right nephrostomy tube. Cardiomediastinal silhouette: normal Pulmonary vasculature: normal Lung expansion: normal Lung airspace: normal Lung interstitium: normal Pleura: normal Pneumothorax: no Bones: Unremarkable Other: no IMPRESSION: No acute intrathoracic abnormality.
[2024-08-06 09:24] VITALS: RESP 18; O2SAT 98
[2024-08-06] MEDS: KETOROLAC TROMETH 30 MG/ML 1ML VIAL IV ONE (09:27)
[2024-08-06] MEDS: SODIUM CHLORIDE 0.9% 1,000 ML IVB ONE (09:27)
[2024-08-06 13:08] VITALS: BP 149/98; PULSE 88; RESP 17; TEMP 98.7; O2SAT 97
== END 2024-08-06 13:08 | disposition home or self-care (01) ==
LOC: EDBD 05:07 → ER 05:07
DX: J18.9 Pneumonia, unspecified organism (principal); I11.0 Hypertensive heart disease with heart failure; I50.9 Heart failure, unspecified; F17.210 Nicotine dependence, cigarettes, uncomplicated; Z79.899 Other long term (current) drug therapy; Z86.73 Personal history of transient ischemic attack (TIA), and cerebral infarction without residual deficits; Z90.49 Acquired absence of other specified parts of digestive tract
CPT/HCPCS: 71045; 96361; 96374; 99283; J1885; J7030